=== PATIENT | male | born 1945 | race Caucasian/White ===

== ENCOUNTER 2024-03-12 07:26 | Day surgery (SDC) | payer MEDICARE, OTHER, SELFPAY ==
[2024-03-12] MEDS: LIDOCAINE 2% JELLY 10 ML UR (08:42)
--- NOTE | 2024-03-12 08:47 | PM.URSON ---
Urology Surgery Operative Note Operative Note Procedure Date: 03/12/24 Time Out Performed: yes Pre-op Diagnosis: BPH with LUTS refractory to medications Post-op Diagnosis: same as pre-op Procedures performed: 1. Cystoscopy. 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 He now presents for cystoscopy. He has signed an informed consent after risks were explained. Detailed description of Procedure: The patient was kept on the [facility] bed and brought to the endoscopy suite. He was in the supine position. Timeout was done by all parties in the room. We all agreed upon the patient's identification and the planned procedures for this patient. 2% lidocaine gel was passed per urethra. I then passed a flexible cystoscope per urethra and into the bladder. The anterior urethra was normal. Prostatic urethra revealed dramatic trilobar obstruction. The median lobe was very capacious and protruded anteriorly coapting with the anterior tissue. This lobe also protruded into the bladder mildly. The lateral lobes also were obstructing. Panendoscopy in the bladder revealed high-grade trabeculation with small mouth diverticuli formation. No bladder tumors were noted. On retroflex of the scope no new findings were noted. The scope was then removed. He was then discharged to home.
[2024-03-12 08:59] VITALS: BP 138/62; BP 148/69; PULSE 52; PULSE 53; O2SAT 94
== END 2024-03-12 09:10 | disposition home or self-care (01) ==
PROVIDERS: PCP Internal Medicine; Visit Provider Urology
PROC: (CPT 52000; principal; 2024-03-12 08:15)
DX: N40.1 Benign prostatic hyperplasia with lower urinary tract symptoms (principal); N32.89 Other specified disorders of bladder; E11.9 Type 2 diabetes mellitus without complications; I10 Essential (primary) hypertension; E78.5 Hyperlipidemia, unspecified; E03.9 Hypothyroidism, unspecified; Z79.4 Long term (current) use of insulin
CPT/HCPCS: 52000

== ENCOUNTER 2024-05-31 11:07 | Outpatient (OUT) | payer MEDICARE, OTHER, SELFPAY ==
--- NOTE | 2024-05-31 11:11 | ECG_ITS ---
The [facility] Test Date: 2024-05-31 Pat Name: RUBEN LAI Department: Room: - Gender: Male [employer]: : 1945 Requested By: GUDELIA HARKINS Order Number: [id number] Reading MD: SHANA PAN Measurements Intervals [place] Rate: 51 P: 43 FL: 161 QRS: 13 QRSD: 96 T: 45 QT: 438 QTc: 407 Interpretive Statements SINUS BRADYCARDIA Electronically Signed On 05-31-2024 22:45:50 EDT by SHANA PAN
[2024-05-31 12:07] LABS: Basophils Percent Auto 0.2 % (0.2-2.0); Eosinophils Absolute Auto 0.3 10^3/uL (0.0-0.7); Eosinophils Percent Auto 4.1 % (0.9-7.0); Hematocrit 41.7 % (42.0-54.0); Hemoglobin 13.3 g/dL (14.0-18.0); Immature Granulocytes Abs Auto 0.03 10^3/uL (0.00-0.03); Immature Granulocytes Pct Auto 0.4 % (0.0-0.5); Lymphocytes Percent Auto 11.4 % (20.5-60.0); Mean Corpuscular HGB Conc 31.9 g/dL (29.9-35.2); Mean Corpuscular Volume 87.8 fL (80.0-94.0); Monocytes Absolute Auto 0.6 10^3/uL (0.3-0.8); Monocytes Percent Auto 7.7 % (1.7-12.0); Neutrophils Absolute Auto 6.4 10^3/uL (1.4-6.5); Neutrophils Percent Auto 76.2 % (43.0-75.0); Platelet Count 205 10^3/uL (150-450); Red Blood Count 4.75 10^6/uL (4.70-6.10); Red Cell Distribution Width 14.9 % (11.0-15.0); White Blood Count 8.4 10^3/uL (4.0-11.0)
[2024-05-31 12:23] LABS: Anion Gap 13.5; BUN Creatinine Ratio 18.1; Calcium 8.9 mg/dL (8.5-10.1); Carbon Dioxide 27.7 mmol/L (21.0-32.0); Chloride 102 mmol/L (98-107); Estimated GFR (African America 51 (>=60 mL/min/1.73m^2); Estimated GFR (Non-African Ame 42 (>=60 mL/min/1.73m^2); Glucose 226 mg/dL (74-106); Potassium 4.2 mmol/L (3.5-5.1); Sodium 139 mmol/L (136-145)
[2024-05-31 12:57] LABS: INR 0.96; Partial Thromboplastin Time 29.6 sec (22.3-36.2); Prothrombin Time 10.2 sec (9.0-11.6)
== END 2024-05-31 11:08 | disposition home or self-care (01) ==
LOC: PST 11:07
PROVIDERS: PCP Internal Medicine; Visit Provider Urology
DX: Z01.810 Encounter for preprocedural cardiovascular examination (principal); Z01.812 Encounter for preprocedural laboratory examination; N40.1 Benign prostatic hyperplasia with lower urinary tract symptoms; E03.9 Hypothyroidism, unspecified; I10 Essential (primary) hypertension; E11.9 Type 2 diabetes mellitus without complications
CPT/HCPCS: 36415; 80048; 85025; 85610; 85730; 93005

== ENCOUNTER 2024-06-06 11:14 | Outpatient (OUT) | payer MEDICARE, OTHER, SELFPAY ==
--- NOTE | 2024-06-06 10:45 | NM_ITS ---
Patient Name: RUBEN LAI MR#: [id number] : 1945 Exam Date: 06/06/2024 Ordering Doctor: DR GURWINDER ARTEAGA M.D. RADIOLOGY REPORT PROCEDURE: NM [place] PERF SPECT REST STR COMPARISON: None. INDICATIONS: PRE PROCEDURE CARDIOVASCULAR EXAM, SHORTNESS OF BREATH TECHNIQUE: Exam Description: Stress/Rest one day protocol gated SPECT Rest Imagin.9 mCi Tc-99m Cardiolite IV on 06/06/2024 Stress Imaging 30.5 mCi Tc-99m Cardiolite IV on 06/06/2024 Exercise Protocol: 0.4 mg Lexiscan given IV Heart Rate (bpm): Rest: 54 Max: 73 PMHR: 50 Blood Pressure: Rest: 134/68 Max: 152/82 Symptoms: Rest and peak stress ECG findings were normal and the exercise portion of the study was normal per attending physician Dr. Lanza . For more details please see separate cardiac stress test report. FINDINGS: QUALITY OF STUDY: Excellent. PERFUSION DEFECT: None. LOCATION: N/A SIZE: N/A. SEVERITY: N/A. TYPE: N/A. WALL MOTION: Normal. LV SIZE: Normal. 84 mL. TID / TCD: None; 0.8 LVEF: Normal. Calculated EF 60%. SUMMARY: Myocardial perfusion imaging study is NORMAL. CONCLUSION: 1. Normal nuclear medicine myocardial perfusion scan. Dictated by: Kirill Hurley M.D. on 06/07/2024 at 11:10 Approved by: Kirill Hurley M.D. on 06/07/2024 at 11:19
--- OUTSIDE RECORDS SUMMARY | 2024-06-06 11:31 | XMS_ITS | CCD ---
Author Organization [facility] Care Team Providers Care Environmental Services Worker Name Role Phone DR HUGO RAMOS Attending Unavailable RICHARD, DR PURDY Primary Care Unavailable RICHARD, DR PURDY Admitting Unavailable HUGO RAMOS Primary Care Physician [phone] CHERELLE Ramos Primary Care Provider MD Manjeet Ng Emergency Provider [phone] Hugo Ramos MD Unavailable Hugo Ramos MD Primary Care Provider Salome Ramirez Admitting Unavailable Salome Ramirez Attending Unavailable Robert CONTRERAS Attending Unavailable CONTRERAS, Robert King Attending Unavailable CONTRERAS, Robert King Attending Unavailable CONTRERAS, Robert King Attending Unavailable SHAHANA, Robert King Attending Unavailable GalSalome dickens Attending Unavailable SHAHANA, Robert King Attending Unavailable SHAHANA, Robert King Referring Unavailable Robert CONTRERAS Admitting Unavailable Manjeet Ng Attending Unavailable Manjeet Ng Admitting Unavailable Hugo Ramos Primary Care Unavailable HUGO RAMOS Attending Unavailable HUGO RAMOS Attending Unavailable PROSPER GRANT Attending Unavailable HUGO RAMOS Attending Unavailable JUSTINA RODRIGUES Attending Unavailable PROSPER GRANT Attending Unavailable PROSPER GRANT Attending Unavailable JUSTINA RODRIGUES Attending Unavailable HUGO RAMOS Attending Unavailable JUSTINA RODRIGUES Attending Unavailable HEMCHIARA SINGH Attending Unavailable HEMCHIARA SINGH Referring Unavailable CHIARA ISLAS Referring Unavailable JUSTINA RODRIGUES Attending Unavailable JUSTINA RODRIGUES Attending Unavailable HUGO RAMOS Attending Unavailable MICHELLE SUMMERS Attending Unavailable PROSPER GRANT Attending Unavailable HUGO RAMOS Attending Unavailable PROSPER GRANT A Attending Unavailable PROSPER GRANT A Attending Unavailable ZOILA GRANTS A Attending Unavailable BROWN, PROSPER A Attending Unavailable HUGO RAMOS Attending Unavailable Allergies Allergy Classification Reported Allergen(s) Allergy Type Date of Onset Reaction(s) Facility (1 source) No Known Medication Allergies; Translations: [No Known Medication Allergies] Propensity to adverse reactions (disorder) [facility] Repository Medications Current Medications Medication Drug Class(es) Dates Sig (Normalized) Sig (Original) acetaminophen 325 mg oral tablet (1 source) Start: 06-07-2019 take 2 tablets by mouth every six hours as needed for pain acetaminophen 325 mg Tab 650 mg = 2 tab(s), Oral, q6hr, PRN as needed for fever or pain, Refills(s) 0 Start Date: 06/07/19 Status: Ordered albuterol 0.83 mg/ml inhalation solution (1 source) beta2-Adrenergic Agonist Start: 06-07-2019 take 2.5 mg by inhalation every six hours albuterol 0.083% Inh Soniya 3 mL 2.5 mg, 3 mL, NEB, q6hr Shortness of breath or wheezing, Refill(s) 0 Start Date: 06/07/19 Status: Ordered 24 hr alfuzosin hydrochloride 10 mg extended release oral tablet (9 sources) alpha-Adrenergic Abram Start: 07-19-2023 End: 08-22-2024 take 1 tablet by mouth every twenty-four hours in the morning alfuzosin ER (Uroxatral) 10 MG 24 hr tablet Indications: Benign prostatic hyperplasia with urinary obstruction Take 1 tablet (10 mg) by mouth in the morning. 100 tablet 3 07/19/2023 08/22/2024 Active Start: 08-14-2022 take 10 mg by mouth once daily Alfuzosin Active 10 MG PO Daily August 14, 2022 12:00am amLODIPine 5 mg oral tablet (10 sources) Dihydropyridine Calcium Channel Abram Start: 10-17-2023 End: 11-20-2024 take 1 tablet by mouth once daily amLODIPine (Norvasc) 5 MG tablet Indications: Benign essential hypertension (CMS/HCC) Take 1 tablet (5 mg) by mouth Daily 100 tablet 3 10/17/2023 11/20/2024 Active Start: 06-07-2019 take 1 tablet by jennifer th once daily amLODIPine 10 mg Tab 10 mg = 1 tab(s), Oral, Daily, Refills(s) 0 Start Date: 06/07/19 Status: Ordered Start: 06-04-2019 take 5 mg by mouth once daily Amlodipine Active 5 MG PO Daily June 04, 2019 12:00am atorvastatin 80 mg oral tablet (10 sources) HMG-CoA Reductase Inhibitor Start: 06-07-2019 End: 01-08-2025 take 1 tablet by mouth once daily atorvastatin (Lipitor) 80 MG tablet Indications: Mixed hyperlipidemia (CMS/HCC) Take 1 tablet (80 mg) by mouth Daily 90 tablet 3 01/09/2024 01/08/2025 Active Start: 06-04-2019 take 80 mg by mouth once daily Atorvastatin Active 80 MG PO Daily June 04, 2019 12:00am Basaglar KwikPen (1 source) Start: 06-07-2019 inject 60 [IU] by subcutaneous injection once daily at bedtime Basaglar KwikPen 60 unit(s), SubCutaneous, Once a day (at bedtime), Refills(s) 0 Start Date: 06/07/19 Status: Ordered buPROPion hydrochloride 75 mg oral tablet (9 sources) Aminoketone Start: 10-10-2023 End: 10-09-2024 take 2 tablets by mouth in the morning buPROPion (Wellbutrin) 75 MG tablet Indications: 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 360 tablet 3 10/10/2023 10/09/2024 Active Start: 07-22-2021 take 150 mg by mouth twice magdy ly Bupropion Hcl Active 150 MG PO Twice daily July 22, 2021 12:00am docusate sodium 100 mg oral capsule (2 sources) Start: 06-04-2019 End: 08-14-2022 take 1 capsule by mouth twice daily as needed for constipation Colace 100 mg Cap 100 mg = 1 cap(s), Oral, BID, PRN for constipation, # 20 cap(s), Refills(s) 0 Start Date: 06/07/19 Status: Ordered doxazosin 4 mg oral tablet (2 sources) alpha-Adrenergic Abram Start: 06-04-2019 End: 08-14-2022 take 1 tablet by mouth once daily doxazosin 4 mg oral tablet 4 mg = 1 tab(s), Oral, Daily, Refills(s) 0 Start Date: 06/07/19 Status: Ordered DULoxetine 60 mg delayed release oral capsule (9 sources) Serotonin and Norepinephrine Reuptake Inhibitor Start: 01-30-2024 take 1 capsule by mouth once daily DULoxetine (Cymbalta) [address] capsule Indications: Anxiety about health Take 1 capsule (60 mg) by mouth Daily 100 capsule 3 01/30/2024 Active Start: 08-14-2022 take 60 mg by mouth once daily Duloxetine Active 60 MG PO Daily August 14, 2022 12:00am empagliflozin 25 mg oral tablet (4 sources) Sodium-Glucose Cotransporter 2 Inhibitor Start: 08-31-2023 End: 08-30-2024 take 1 tablet by mouth in the morning empagliflozin (Jardiance) 25 MG Indications: Type 2 diabetes mellitus with diabetic neuropathy, with long-term current use of insulin ([facility]) Take 1 tablet (25 mg) by mouth in the morning. 30 tablet 11 08/31/2023 08/30/2024 Active famotidine 20 mg oral tablet (2 sources) Histamine-2 Receptor Antagonist Start: 06-04-2019 End: 08-14-2022 take 1 tablet by mouth once daily famotidine 20 mg Tab 20 mg = 1 tab(s), Oral, Daily, Refills(s) 0 Start Date: 06/07/19 Status: Ordered furosemide 20 mg oral tablet (2 sources) Loop Diuretic Start: 06-04-2019 End: 08-14-2022 take 1 tablet by mouth once daily Lasix 20 mg Tab 20 mg = 1 tab(s), Oral, Daily, Refills(s) 0 Start Date: 06/07/19 Status: Ordered gabapentin 100 mg oral capsule (2 sources) Anti-epileptic Agent Start: 06-04-2019 End: 08-14-2022 take 1 capsule by mouth three times daily gabapentin 100 mg Cap 100 mg = 1 cap(s), Oral, TID, Refills(s) 0 Start Date: 06/07/19 Status: Ordered guaiFENesin 600 mg oral tablet (2 sources) Start: 06-07-2019 take 600 mg by mouth every twelve hours Mucinex 600 mg, Oral, q12hr, Refills(s) 0 Start Date: 06/07/19 Status: Ordered Start: 06-06-2019 End: 08-14-2022 take 1 tablet by mouth twice daily, then take 1 tablet by mouth every twelve hours Guaifenesin (Mucinex) 600 mg Tablet Extended Release 12hr Discontinued 600 MG PO Twice daily 14 7 June 06, 2019 12:00am August 14, 2022 10:45am hydrALAZINE hydrochloride 50 mg oral tablet (10 sources) Arteriolar Vasodilator Start: 06-04-2019 End: 01-08-2025 take 1 tablet by mouth in the morning, then take 1 tablet by mouth in the evening, then take 1 tablet by mouth at bedtime hydrALAZINE (Apresoline) 50 MG tablet Indications: Benign essential hypertension (CMS/HCC) Take 1 tablet (50 mg) by mouth in the morning and 1 tablet (50 mg) in the evening and 1 tablet (50 mg) before bedtime. 270 tablet 3 01/09/2024 01/08/2025 Active hydrocortisone valerate 2 mg/ml topical cream (4 sources) Corticosteroid Start: 09-28-2021 hydrocortisone ([place]) 0.2 % cream 1 application 1 (one) time each day at the same time. 09/28/2021 Active ibuprofen 800 mg oral tablet (4 sources) Nonsteroidal Anti-inflammatory Drug Start: 01-04-2024 take 1 tablet by mouth every eight hours as needed ibuprofen 800 MG tablet Take 800 mg by mouth every 8 (eight) hours if needed 01/04/2024 Active insulin isophane / insulin, regular, human (10 sources) Insulin Start: 02-23-2024 Novolin 70/30 SubCutaneous, Refill(s) 0 Start Date: 02/23/24 Status: Ordered Start: 07-22-2021 inject 40 [IU] by hare bcutaneous injection once daily in the morning, then inject 50 [IU] by subcutaneous injection in the evening Insulin Nph And Regular Human (Novolin 70/30 U-100 Insulin) 100 unit/mL (70-30) suspension Active 40 UNIT SUBCUT Every morning July 22, 2021 12:00am 40 UNITS AM 50 UNITS PM Start: 07-22-2021 inject 50 [IU] by hare bcutaneous injection once daily at bedtime Insulin Nph And Regular Human Active 50 UNIT SUBCUT Daily at bedtime July 22, 2021 12:00am inject 50 [IU] by hare bcutaneous injection every twelve hours insulin NPH-insulin regular (NovoLIN 70/30) (70-30) 100 UNIT/ML injection Inject 50 Units under the skin every 12 (twelve) hours. 40 units am and 50 units pm Active Insulin Lispro (2 sources) Insulin Analog Start: 06-07-2019 insulin lispro 10 unit(s), SubCutaneous, TIDAC, Refills(s) 0 Start Date: 06/07/19 Status: Ordered Start: 06-04-2019 End: 08-14-2022 inject 10 [IU] by subcutaneous injection three times daily Insulin Lispro Discontinued 10 UNITS SUBCUT Three times daily June 04, 2019 12:00am August 14, 2022 10:45am Hold for BS less than 110 levoFLOXacin 750 mg oral tablet (2 sources) Quinolone Antimicrobial Start: 06-06-2019 End: 08-14-2022 take 1 tablet by mouth every twenty-four hours Levaquin 750 mg Tab 750 mg = 1 tab(s), Oral, q24hr, Refills(s) 0 Start Date: 06/07/19 Status: Ordered levothyroxine sodium 0.175 mg oral tablet (12 sources) l-Thyroxine Start: 08-08-2023 End: 09-11-2024 take 1 tablet by mouth before mealtime levothyroxine (Synthroid, Levoxyl) 175 MCG tablet Indications: Acquired hypothyroidism (CMS/HCC) Take 1 tablet (175 mcg) by mouth in the morning. Take before meals. 100 tablet 3 08/08/2023 09/11/2024 Active Start: 07-22-2021 Levothyroxine Active 87.5 MCG PO Q48H July 22, 2021 12:00am Start: 07-22-2021 Levothyroxine Active 175 MCG PO Q48H July 22, 2021 12:00am Start: 06-07-2019 take 1 tablet by jennifer th once daily levothyroxine 150 mcg (0.15 mg) Tab 150 microgram = 1 tab(s), Oral, Daily, Refills(s) 0 Start Date: 06/07/19 Status: Ordered Start: 06-04-2019 End: 07-22-2021 take 175 ug by mouth once daily Levothyroxine Discontinued 175 MCG PO Daily June 04, 2019 12:00am July 22, 2021 7:23am loratadine 10 mg oral tablet (4 sources) Start: 01-30-2024 take 1 tablet by mouth once daily loratadine (Claritin) 10 MG tablet Indications: Persistent cough Take 1 tablet (10 mg) by mouth Daily for 14 days 14 tablet 01/30/2024 Active metoprolol tartrate 50 mg oral tablet (10 sources) beta-Adrenergi c Abram Start: 06-04-2019 End: 12-28-2024 take 1 tablet by mouth in the morning metoprolol tartrate (Lopressor) 50 MG tablet Indications: Atrial Fibrillation Take 1 tablet (50 mg) by mouth in the morning and 1 tablet (50 mg) before bedtime. 180 tablet 3 12/29/2023 12/28/2024 Active oxyCODONE hydrochloride 5 mg oral capsule (3 sources) Opioid Agonist Start: 06-07-2019 take 1 capsule by mouth four times daily as needed for pain oxyCODONE 5 mg Cap 5 mg = 1 cap(s), Oral, QID, PRN as needed for pain, Refills(s) 0 Start Date: 06/07/19 Status: Ordered Start: 06-04-2019 End: 08-14-2022 take 1 tablet by mouth four times daily Oxycodone (Roxicodone) 5 mg Tablet Discontinued 5 MG PO Four times daily 10 June 06, 2019 August 14, 2022 10:45am microencapsulated potassium chloride 20 meq extended release oral tablet (1 source) Start: 07-22-2021 take 20 mEq by mouth twice daily Potassium Chloride Active 20 MEQ PO Twice daily July 22, 2021 12:00am QUEtiapine 25 mg oral tablet (2 sources) Atypical Antipsychotic Start: 06-04-2019 End: 08-14-2022 take 1 tablet by mouth at bedtime SEROquel 25 mg Tab 25 mg = 1 tab(s), Oral, Bedtime, Refills(s) 0 Start Date: 06/07/19 Status: Ordered tamsulosin hydrochloride 0.4 mg oral capsule (2 sources) alpha-Adrenergic Abram Start: 06-04-2019 End: 08-14-2022 take 1 capsule by mouth once daily tamsulosin 0.4 mg Cap 0.4 mg = 1 cap(s), Oral, Daily, Refills(s) 0 Start Date: 06/07/19 Status: Ordered Completed/Discontinued Medications Medication Drug Class(es) Dates Sig (Normalized) Sig (Original) Budesonide (1 source) Corticosteroid Start: 07-22-2021 End: 08-14-2022 Budesonide Discontinued 1 INH INHALATION Twice daily 1 July 22, 2021 8:07am August 14, 2022 10:44am cholecalciferol 0.125 mg oral capsule (2 sources) Vitamin D Start: 06-04-2019 End: 08-14-2022 take 1 capsule by mouth once daily cholecalciferol 5000 intl units oral capsule 5,000 International_Unit = 1 cap(s), Oral, Daily, Refills(s) 0 Start Date: 06/07/19 Status: Ordered ciprofloxacin 500 mg oral tablet (3 sources) Quinolone Antimicrobial Start: 03-05-2024 take 1 tablet by mouth once daily Cipro 500 mg Tab 500 mg = 1 tab(s), Oral, Daily, Take 1 tablet the day before the procedure and 1 tablet after the procedure, # 2 tab(s), Refills(s) 0, Pharmacy: [id number], 176, cm, 02/23/24 13:47:00 EDT, Height/Length Dosing, 111, kg, 02/23/24 13:47:00 EDT, Weight Dosing Start Date: 03/05/24 Status: Ordered digoxin 0.25 mg oral tablet (2 sources) Cardiac Glycoside Start: 06-07-2019 take 1 tablet by mouth once daily digoxin 250 mcg (0.25 mg) Tab 250 microgram = 1 tab(s), Oral, Daily, Refills(s) 0 Start Date: 06/07/19 Status: Ordered Start: 06-04-2019 End: 08-14-2022 take 250 ug by mouth once daily Digoxin Discontinued 250 MCG PO Daily June 04, 2019 12:00am August 14, 2022 10:44am 3 ml insulin glargine 100 unt/ml pen injector (1 source) Insulin Analog Start: 06-04-2019 End: 08-14-2022 Insulin Glargine (Basaglar Kwikpen U-100 Insulin) 100 unit/mL (3 mL) Insulin Pen Discontinued 60 UNITS SUBCUT Bedtime June 04, 2019 12:00am August 14, 2022 10:44am Problems Active Problems Problem Classification Problem Date Documented Da te Episodic/Chronic Acute myocardial infarction (9 sources) Myocardial infarction; Translations: [Myocardial infarction type 2] Onset: 01-30-2024 06-07-2019 Chronic Administrative/social admission (1 source) Counseling procedure with explicit context; Translations: [Dietary counseling and surveillance] Episodic Cardiac dysrhythmias (5 sources) Paroxysmal atrial fibrillation; Translations: [Paroxysmal atrial fibrillation] Onset: 07-20-2019 06-07-2019 Chronic Cataract (12 sources) Age-related nuclear cataract of right eye; Translations: [Age-related nuclear cataract, right eye] Onset: 10-14-2017 02-21-2023 Chronic Congestive heart failure; nonhypertensive (12 sources) Chronic diastolic heart failure; Translations: [Chronic diastolic (congestive) heart failure] Onset: 12-22-2022 12-22-2022 Chronic Delirium, dementia, and amnestic and other cognitive disorders (4 sources) Dementia; Translations: [Unspecified dementia without behavioral disturbance] Onset: 12-22-2022 12-22-2022 Chronic Diabetes mellitus with complications (20 sources) Hyperglycemia due to type 2 diabetes mellitus; Translations: [Type 2 diabetes mellitus with hyperglycemia] Onset: 03-16-2017 Chronic Diabetes mellitus without complication (10 sources) Diabetes mellitus; Translations: [Type 2 diabetes mellitus without complications] Onset: 12-22-2022 06-05-2019 Chronic Disorders of lipid metabolism (8 sources) Hyperlipidemia; Translations: [Mixed hyperlipidemia] Onset: 07-16-2015 02-23-2024 Chronic Diverticulosis and diverticulitis (4 sources) Diverticulosis of colon; Translations: [Diverticulosis of large intestine without perforation or abscess without bleeding] Onset: 01-26-2021 02-21-2023 Chronic Essential hypertension (15 sources) Benign hypertension; Translations: [Essential (primary) hypertension] Onset: 12-22-2022 Resolved: 06-04-2024 06-05-2019 Chronic Genitourinary symptoms and ill-defined conditions (1 source) Unspecified urinary incontinence; Translations: [Unspecified urinary incontinence] Onset: 05-24-2024 Chronic Hyperplasia of prostate (13 sources) Benign prostatic hypertrophy with outflow obstruction; Translations: [Benign prostatic hyperplasia with lower urinary tract symptoms] Onset: 06-22-2021 Chronic Mood disorders (4 sources) Severe major depression without psychotic features ; Translations: [Major depressive disorder, single episode, severe without psychotic features] Onset: 12-26-2019 02-21-2023 Chronic Osteoarthritis (8 sources) Localized, secondary osteoarthritis of the shoulder region; Translations: [Secondary osteoarthritis, unspecified shoulder] Onset: 08-13-2020 02-21-2023 Chronic Other aftercare (1 source) Long-term current use of insulin; Translations: [terminal gauger (current) use of insulin] Episodic Other connective tissue disease (1 source) Abnormal posture; Translations: [ABNORMAL POSTURE] Onset: 03-02-2022 Episodic Other diseases of veins and lymphatics (4 sources) Stasis dermatitis; Translations: [Chronic venous hypertension (idiopathic) with inflammation of unspecified lower extremity] Onset: 02-21-2023 02-21-2023 Chronic Other hereditary and degenerative nervous system conditions (4 sources) Impaired cognition; Translations: [Mild cognitive impairment, so stated] Onset: 12-22-2022 12-22-2022 Chronic Other hereditary and degenerative nervous system conditions (4 sources) Cerebellar ataxia; 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, unspecified] Onset: 12-22-2022 12-22-2022 Chronic Other male genital disorders (4 sources) Secondary erectile dysfunction; Translations: [Male erectile dysfunction, unspecified] Onset: 07-16-2015 02-21-2023 Chronic Other nervous system disorders (4 sources) Chronic pain; Translations: [Other chronic pain] Onset: 12-22-2022 12-22-2022 Chronic Other nervous system disorders (4 sources) Unspecified abnormalities of gait and mobility; Translations: [UNS ABNORMALITIES GAIT AND MOBILITY] Onset: 02-19-2022 Episodic Other nervous system disorders (1 source) Other abnormalities of gait and mobility; Translations: [OTHER ABNORMALITIES GAIT AND MOBILITY] Onset: 03-02-2022 Episodic Other screening for suspected conditions (not mental disorders or infectious disease) (8 sources) Abnormal radiologic density; Translations: [Abnormal findings on diagnostic imaging of other specified body structures] Onset: 01-19-2021 12-22-2022 Chronic Other screening for suspected conditions (not mental disorders or infectious disease) (1 source) Encounter for screening for malignant neoplasm of prostate; Translations: [Screening for malignant neoplasm done] Onset: 02-23-2024 Episodic Other upper respiratory infections (8 sources) Chronic sinusitis; Translations: [Chronic sinusitis, unspecified] Onset: 03-05-2019 12-22-2022 Chronic Residual codes; unclassified (4 sources) Sleep apnea; Translations: [Sleep apnea, unspecified] Onset: 02-21-2023 02-21-2023 Chronic Retinal detachments; defects; vascular occlusion; and retinopathy (4 sources) Microaneurysm of retinal artery; Translations: [Retinal micro-aneurysms, unspecified, unspecified eye] Onset: 10-14-2017 02-21-2023 Chronic Spondylosis; intervertebral disc disorders; other back problems (12 sources) Degeneration of lumbar intervertebral disc; Translations: [Degenerative disc disease, lumbar] Onset: 07-16-2015 12-22-2022 Chronic Thyroid disorders (9 sources) Hypothyroidism; Translations: [Hypothyroidism, unspecified] Onset: 12-22-2022 06-07-2019 Chronic Unclassified (1 source) Cough, unspecified; Translations: [Cough, unspecified] Onset: 08-14-2022 Past or Other Problems Problem Classification Problem Date Documented Date Episodic/Chronic Deficiency and other anemia (5 sources) Anemia; Translations: [Anemia, unspecified] Onset: 01-30-2024 06-07-2019 Episodic E Codes: Machinery (5 sources) Contact with unspecified agricultural machinery, initial encounter; Translations: [Accident caused by farm tractor] Onset: 01-30-2024 03-30-2019 Episodic Genitourinary symptoms and ill-defined conditions (5 sources) Retention of urine; Translations: [Retention of urine, unspecified] Onset: 02-06-2024 Episodic Inflammation; infection of eye (except that caused by tuberculosis or sexually transmitteddisease) (4 sources) Blepharitis of upper and lower eyelids of bilateral eyes; Translations: [Unspecified blepharitis right eye, upper and lower eyelids] Onset: 03-14-2023 03-14-2023 Episodic Intracranial injury (4 sources) Traumatic brain injury; Translations: [Traumatic brain injury] Onset: 02-21-2023 02-21-2023 Episodic Malaise and fatigue (6 sources) Weakness; Translations: [Asthenia] Onset: 03-02-2022 07-22-2021 Episodic Miscellaneous mental health disorders (4 sources) Anxiety about body function or health; Translations: [Other symptoms and signs involving emotional state] Onset: 12-22-2022 12-22-2022 Episodic Other connective tissue disease (4 sources) Pain in left lower limb; Translations: [Pain in left leg] Onset: 02-21-2023 02-21-2023 Episodic Other diseases of veins and lymphatics (4 sources) Peripheral venous insufficiency; Translations: [Venous insufficiency (chronic) (peripheral)] Onset: 12-22-2022 12-22-2022 Episodic Other diseases of veins and lymphatics (4 sources) Disorder of vein of lower extremity; Translations: [Venous insufficiency (chronic) (peripheral)] Onset: 02-21-2023 02-21-2023 Episodic Other eye disorders (4 sources) Floppy lid syndrome; Translations: [Other disorders affecting eyelid function] Onset: 03-14-2023 03-14-2023 Episodic Other eye disorders (4 sources) Dry eyes; Translations: [Dry eye syndrome of bilateral lacrimal glands] Onset: 03-14-2023 03-14-2023 Episodic Other fractures (5 sources) Fracture of thoracic spine; Translations: [Unspecified fracture of unspecified thoracic vertebra, initial encounter for closed fracture] Onset: 01-30-2024 03-30-2019 Episodic Other fractures (5 sources) Fracture of multiple ribs ; Translations: [Multiple fractures of ribs, bilateral, initial encounter for closed fracture] Onset: 01-30-2024 03-30-2019 Episodic Other fractures (4 sources) Closed fracture of sternum; Translations: [Unspecified fracture of sternum, initial encounter for closed fracture] Onset: 03-30-2019 02-21-2023 Episodic Other fractures (4 sources) Closed fracture of multiple left and right ribs; Translations: [Multiple fractures of ribs, bilateral, initial encounter for closed fracture] Onset: 03-30-2019 02-21-2023 Episodic Other injuries and conditions due to external causes (4 sources) Injury of chest wall; Translations: [Unspecified injury of thorax, initial encounter] Onset: 08-03-2019 02-21-2023 Episodic Other lower respiratory disease (5 sources) Dyspnea; Translations: [Shortness of breath] Onset: 01-30-2024 07-22-2021 Episodic Other nervous system disorders (5 sources) Abnormal gait; Translations: [Other abnormalities of gait and mobility] Onset: 12-22-2022 Episodic Pleurisy; pneumothorax; pulmonary collapse (9 sources) Pneumothorax; Translations: [Pneumothorax, unspecified] Onset: 01-30-2024 03-30-2019 Episodic Pneumonia (except that caused by tuberculosis or sexually transmitted disease) (5 sources) Infective pneumonia; Translations: [Pneumonia, unspecified organism] Onset: 01-30-2024 06-05-2019 Episodic Skull and face fractures (5 sources) Closed fracture of nasal bones; Translations: [Fracture of nasal bones, initial encounter for closed fracture] Onset: 01-30-2024 03-30-2019 Episodic Viral infection (6 sources) Disease caused by 2019-nCoV; Translations: [COVID-19] Onset: 01-30-2024 07-22-2021 Episodic Results Test Name Value Interpretation Reference Range Facility ALL CBC WITH AUTO DIFFon BASOPHILS ABSOLUTE AUTO 0 [facility] Basophils/100 WBC (Bld) 0.2 % 0.2 - 2.0 % [facility] Eosinophils/100 WBC (Bld) 4.1 % 0.9 - 7.0 % [facility] Erythrocyte distribution width (RBC) [Ratio] 14.9 % 11.0 - 15.0 % [facility] Hematocrit (Bld) [Volume fraction] 41.7 % Low 42.0 - 54.0 % [facility] Hemoglobin (Bld) [Mass/Vol] 13.3 g/dL Low 14.0 - 18.0 g/dL [facility] IMMATURE GRANULOCYTES ABS AUTO 0.03 [facility] Immature granulocytes/100 WBC (Bld) 0.4 % 0.0 - 0.5 % [facility] Interpretation and review of laboratory results Abnormal [facility] LYMPHOCYTES ABSOLUTE AUTO 1 Low [facility] Lymphocytes/100 WBC (Bld) 11.4 % Low 20.5 - 60.0 % [facility] MCH (RBC) [Entitic mass] 28 pg 25.9 - 34.0 pg [facility] MCHC (RBC) [Mass/Vol] 31.9 g/dL 29.9 - 35.2 g/dL [facility] MCV (RBC) [Entitic vol] 87.8 fL 80.0 - 94.0 fL [facility] MONOCYTES ABSOLUTE AUTO 0.6 [facility] Monocytes/100 WBC (Bld) 7.7 % 1.7 - 12.0 % [facility] NEUTROPHILS ABSOLUTE AUTO 6.4 [facility] Neutrophils/100 WBC (Bld) 76.2 % High 43.0 - 75.0 % [facility] Platelet mean volume (Bld) [Entitic vol] 11 fL 9.5 - 13.5 fL [facility] TBH EO # 0.3 [facility] PLT 205 [facility] RBC 4.75 [facility] WBC 8.4 [facility] CLINISYNC [facility] C Urineon 05-26-2024 Bacteria identified Cx Nom (U) Microbiology PROCEDURE: Urine Culture [R1] SOURCE: U CleanCatch BODY SITE: COLLECTED DATE/TIME: 05/24/2024 13:55 EDT RECEIVED DATE/TIME: 05/24/2024 18:13 EDT START DATE/TIME: 05/24/2024 18:13 EDT FREE TEXT SOURCE: Ashley SINGLETON, Salome SINGLETON, Salome Hickey FINAL REPORTS Final Report [] Verified Date/Time: 05/26/2024 08:42 EDT >100,000 cfu/ml Streptococcus agalactiae (Group B) Presumptive isolated. Penicillin is the drug of choice for Beta Hemolytic Streptococci Isolates. Routine susceptibility testing on Beta Hemolytic Streptococcus isolates is no longer performed. Susceptibilities will continue to be performed on Isolates from sterile body fluids and serious wound infections. Performing Locations R1: This test was performed at: [facility], [address] [place] [address], [facility] , [place], [facility] Comment on above: Performed By: #### 2 [id number] #### [facility] [address] [place] [address] URINARY BLADDER LIMITEDon 02-03-2024 US URINARY BLADDER LIMITED US - US PELVIS LIMITED Reason for exam: Urinary incontinence Technique: Grayscale and color Doppler scanning was performed of the bladder. FINDINGS: The bladder margins are smooth with no obvious masses or wall thickening and no diverticula. Bilateral ureteral jets were noted with color Doppler. The prevoid volume is 324 cc and the post void volume is 155 cc. IMPRESSION: Elevated postvoid bladder volume. No focal findings on ultrasound. Dictated on: 02/03/2024 4:03 PM This report has been electronically signed and approved by the interpreting Radiologist. Electronically Signed Jose Alejandro Yeboah M.D. 2024-02-03 16:04:13 Normal Not Available XR CHEST 2 VIEWSon 4 XR CHEST 2 VIEWS Exam: XR - CHEST 2 V IEWS Reason for exam: Persistent cough Prior comparative studies: None Findings: Multiple fixation plates are seen in the sternum and right ribs. Multiple previous left rib fractures are also visible. Lungs are slightly hyperinflated. There is perhaps slight parabronchial cuffing. No consolidation or effusion is apparent. Heart is not enlarged. Mediastinum is unremarkable. IMPRESSION: 1. Mild parabronchial cuffing which may suggest airway disease, or bronchitis. 2. Obstructive pulmonary changes. 3. Extensive post traumatic and postoperative changes. Electronically Signed Bam Campos M.D. 2024-02-03 13:24:47 Normal Not Available Activated partial thrombopla stin time (aPTT) in platelet poor plasma by coagulation aOrdered By: Manjeet Ng on 08-14-2022 aPTT Coag (PPP) [Time] 28.5 s 25.1-36.5 [facility] Albumin [Mass/volume] in Ser um or PlasmaOrdered By: Manjeet Ng on 08-14-2022 Albumin [Mass/Vol] 3.6 g/dL 3.2-5.5 [facility] Automated erythrocytes count in urine sediment (number/area)Ordered By: Manjeet Ng on 08-14-2022 RBC Auto (Urine sed) [#/Area] None seen [HPF] 0-4 [facility] Automated leukocytes count i n urine sediment (number/area)Ordered By: Manjeet Ng on 08-14-2022 WBC Auto (Urine sed) [#/Area] None seen [HPF] 0-4 [facility] Basophils Auto (Bld) [#/Vol] Ordered By: Manjeet Ng on 08-14-2022 Basophils (Bld) [#/Vol] 0.0 10*3/uL 0.0-0.2 [facility] Basophils/100 WBC Auto (Bld) Ordered By: Manjeet Ng on 08-14-2022 Basophils/100 WBC (Bld) 0.2 % . [facility] Bilirubin Test strip Ql (U)O rdered By: Manjeet Ng on 08-14-2022 Bilirubin Ql (U) Negative Negative [facility] COVID CepheidOrdered By: Keshawn decker Hernandez on 08-14-2022 SARS-CoV-2 (COVID-19) Ab IA Ql Positive Negative [facility] Comment on above: This is a duplicate Cepheid Xpert Xpress CoV-2/Flu/RSV Plus RNA by RT-PCR result to be used for statistical tracking purpose only. SARS-CoV-2 (COVID-19) RNA MUKESH+probe Ql (Unsp spec) [facility] Color Auto (U)Ordered By: Yumiko Ng on 08-14-2022 Color (U) Yellow Yellow [facility] Creatinine and Glomerular fi ltration rate.predicted panel (S/P/Bld)Ordered By: Manjeet Ng on 08-14-2022 Creatinine [Mass/Vol] 1.41 mg/dL 0.64-1.27 [facility] Eosinophils Auto (Bld) [#/Vo l]Ordered By: Manjeet Ng on 08-14-2022 Eosinophils (Bld) [#/Vol] 0.1 10*3/uL 0.0-0.45 [facility] Eosinophils/100 WBC Auto (Bl d)Ordered By: Manjeet Ng on 08-14-2022 Eosinophils/100 WBC (Bld) 1.3 % . [facility] Erythrocyte distribution wid th Auto (RBC) [Ratio]Ordered By: Manjeet Ng on 08-14-2022 Erythrocyte distribution width (RBC) [Ratio] 14.6 % 12.0-14.8 [facility] Estimated glomerular filtrat ion rate (GFR) non- AmericanOrdered By: Manjeet Ng on 08-14-2022 GFR/1.73 sq M.predicted among non-blacks MDRD (S/P/Bld) [Vol rate/Area] 49 mL/Min [facility] Globulin Calc (S) [Mass/Vol] Ordered By: Manjeet Ng on 08-14-2022 Globulin (S) [Mass/Vol] 2.8 g/dL [facility] Glucose Glucometer (BldC) [M ass/Vol]Ordered By: Manjeet Ng on 08-14-2022 Glucose [Mass/Vol] 187 mg/dL [facility] Comment on above: Random Glucose Refer ence Range is dependent on time and content of last meal. Glucose of more than 200 mg/dL in a nonstressed, ambulatory subject supports the diagnosis of Diabetes Mellitus. Hematocrit Auto (Bld) [Volum e fraction]Ordered By: Manjeet Ng on 08-14-2022 Hematocrit (Bld) [Volume fraction] 37.8 % 38.8-50.0 [facility] Hemoglobin [Mass/volume] in BloodOrdered By: Manjeet Ng on 08-14-2022 Hemoglobin (Bld) [Mass/Vol] 12.2 g/dL 13.0-17.0 [facility] Ketones Auto test strip (U) [Mass/Vol]Ordered By: Manjeet Ng on 08-14-2022 Ketones (U) [Mass/Vol] Negative Negative [facility] and C hemistry - challengeOrdered By: Manjeet Ng on 08-14-2022 Magnesium [Mass/Vol] 1.8 mg/dL 1.6-2.6 [facility] Natriuretic peptide B (Bld) [Mass/Vol] 142.0 pg/mL 5-100 [facility] Laboratory - CoagulationOrde red By: Manjeet Ng on 08-14-2022 PT Coag (PPP) [Time] 11.6 s 9.0-12.9 [facility] Laboratory - UrinalysisOrder ed By: Manjeet Ng on 08-14-2022 Hyaline casts LM Ql (Urine sed) 0-8 [LPF] 0-8 [facility] Leukocytes [#/volume] correc nidhi for nucleated erythrocytes in Blood by Automated counOrdered By: Manjeet Ng on 08-14-2022 WBC corrected for nucl RBC Auto (Bld) [#/Vol] 8.0 10*3/uL 4.1-10.5 [facility] Lymphocytes Auto (Bld) [#/Vo l]Ordered By: Manjeet Ng on 08-14-2022 Lymphocytes (Bld) [#/Vol] 0.7 10*3/uL 1.00-4.8 [facility] Lymphocytes/100 WBC Auto (Bl d)Ordered By: Manjeet Ng on 08-14-2022 Lymphocytes/100 WBC (Bld) 9.1 % . [facility] MCH Auto (RBC) [Entitic mass ]Ordered By: Manjeet Ng on 08-14-2022 MCH (RBC) [Entitic mass] 28.6 pg 27.5-35.2 [facility] MCHC Auto (RBC) [Mass/Vol]Or dered By: Manjeet Ng on 08-14-2022 MCHC (RBC) [Mass/Vol] 32.2 g/dL 32.5-35.6 [facility] MCV Auto (RBC) [Entitic vol] Ordered By: Manjeet Ng on 08-14-2022 MCV (RBC) [Entitic vol] 88.9 fL 83.5-101 [facility] Monocyte distribution width [Entitic volume] in Blood by AutomatedOrdered By: Manjeet Ng on 08-14-2022 Monocyte distribution width Auto (Bld) [Entitic vol] 20.88 % 0.00-20.00 [facility] Comment on above: For adults in ED, MD W > 20.0 may be associated with a higher risk of sepsis during the first 12 hrs of hospital admission Monocytes Auto (Bld) [#/Vol] Ordered By: Manjeet Ng on 08-14-2022 Monocytes (Bld) [#/Vol] 1.0 10*3/uL 0.0-0.8 [facility] Monocytes/100 WBC Auto (Bld) Ordered By: Manjeet Ng on 08-14-2022 Monocytes/100 WBC (Bld) 12.5 % . [facility] Neutrophils Auto (Bld) [#/Vo l]Ordered By: Manjeet Ng on 08-14-2022 Neutrophils (Bld) [#/Vol] 6.1 10*3/uL 1.8-7.7 [facility] Neutrophils/100 WBC Auto (Bl d)Ordered By: Manjeet Ng on 08-14-2022 Neutrophils/100 WBC (Bld) 76.9 % . [facility] Nitrite Test strip Ql (U)Ord ered By: Manjeet Ng on 08-14-2022 Nitrite Ql (U) Negative Negative [facility] No Panel InformationOrdered By: Manjeet Ng on 08-14-2022 Estimated GFR () 59 mL/Min [facility] Comment on above: GFR estimated refere nce range: According to KDOQI guidelines, <60 ml/min/1.73m2 is sufficient to diagnose a patient with chronic kidney disease. Pharmacy Creatinine Clearance (Chem 55.99 [facility] Nucleated erythrocytes [Pres ence] in Blood by Automated countOrdered By: Manjeet Ng on 08-14-2022 Nucleated RBC Auto Ql (Bld) 0.1 /100{WBC} 0-0.5 [facility] Platelet mean volume Auto (B ld) [Entitic vol]Ordered By: Manjeet Ng on 08-14-2022 Platelet mean volume (Bld) [Entitic vol] 10.5 fL 6.6-10.1 [facility] Platelet poor plasma interna tional normalized ratio (INR) by coagulation assay (relatOrdered By: Manjeet Ng on 08-14-2022 INR Coag (PPP) [Relative time] 1.0 {INR} [facility] Comment on above: INR Therapeutic Rang e A) Pre- and Peroperative OAT started two weeks before surgery. NOT HIP SURGERY: 1.5 - 2.5 HIP SURGERY: 2 - 3B) Primary and secondary prevention of venous THROMBOSIS: 2 - 3C) Active venous thrombosis, pulmonary embolismand prevention of recurrent venous thrombosis: 2 - 3D) Prevention of arterial thromboembolismincluding patients with mechanical heart valves: 3 - 4.5 Platelets Auto (Bld) [#/Vol] Ordered By: Manjeet Ng on 08-14-2022 Platelets (Bld) [#/Vol] 134 10*3/uL 150-450 [facility] Protein Auto test strip (U) [Mass/Vol]Ordered By: Manjeet Ng on 08-14-2022 Protein (U) [Mass/Vol] 30 mg/dL Negative Fi [facility] Protein [Mass/volume] in Ser um or PlasmaOrdered By: Manjeet Ng on 08-14-2022 Protein [Mass/Vol] 6.4 g/dL 6.1-7.9 [facility] RBC Auto (Bld) [#/Vol]Ordere d By: Manjeet Ng on 08-14-2022 RBC (Bld) [#/Vol] 4.26 10*6/uL 3.90-5.60 [facility] Serum or plasma alanine harden otransferase measurement without P-5'-P (enzymatic activiOrdered By: Manjeet Ng on 08-14-2022 ALT No additional P-5'-P [Catalytic activity/Vol] 26 U/L 10-60 [facility] Serum or plasma albumin/glob ulin mass ratioOrdered By: Manjeet Ng on 08-14-2022 Albumin/Globulin [Mass ratio] 1.3 {ratio} [facility] Serum or plasma alkaline hussein sphatase measurement (enzymatic activity/volume)Ordered By: Manjeet Ng on 08-14-2022 ALP [Catalytic activity/Vol] 52 U/L 32-92 [facility] Serum or plasma anion gap de terminationOrdered By: Manjeet Ng on 08-14-2022 Anion gap [Moles/Vol] 13.3 mmol/L 6.0-15.0 [facility] Serum or plasma aspartate am inotransferase measurement (enzymatic activity/volume)Ordered By: Manjeet Ng on 08-14-2022 AST [Catalytic activity/Vol] 32 U/L 10-42 [facility] Serum or plasma calcium jessenia urement (mass/volume)Ordered By: Manjeet Ng on 08-14-2022 Calcium [Mass/Vol] 8.6 mg/dL 8.2-10.2 [facility] Serum or plasma chloride kvng surement (moles/volume)Ordered By: Manjeet Ng on 08-14-2022 Chloride [Moles/Vol] 101 mmol/L 95-114 [facility] Serum or plasma glucose jessenia urement (mass/volume)Ordered By: Manjeet Ng on 08-14-2022 Glucose [Mass/Vol] 183 mg/dL 70-100 [facility] Comment on above: ADA recommended refe rence rangeRandom Glucose Reference Range is dependent on time and content of last meal. Glucose of more than 200 mg/dL in a nonstressed, ambulatory subject supports the diagnosis of Diabetes Mellitus. Serum or plasma potassium me asurement (moles/volume)Ordered By: Manjeet Ng on 08-14-2022 Potassium [Moles/Vol] 4.5 mmol/L 3.5-5.1 [facility] Serum or plasma sodium measu rement (moles/volume)Ordered By: Manjeet Ng on 08-14-2022 Sodium [Moles/Vol] 134 mmol/L 136-146 [facility] Serum or plasma total biliru bin measurement (mass/volume)Ordered By: Manjeet Ng on 08-14-2022 Bilirubin [Mass/Vol] 0.6 mg/dL 0.3-1.2 [facility] Serum or plasma total carbon dioxide measurement (moles/volume)Ordered By: Manjeet Ng on 08-14-2022 CO2 [Moles/Vol] 24.2 mmol/L 22.0-30.0 [facility] Serum or plasma urea nitroge n measurement (mass/volume)Ordered By: Manjeet Ng on 08-14-2022 Urea nitrogen [Mass/Vol] 27 mg/dL 9- [facility] Specific gravity Auto test s trip (U) [Rel density]Ordered By: Manjeet Ng on 08-14-2022 Specific gravity (U) [Rel density] 1.014 1.001-1.030 [facility] Squamous epithelial cells de tection in urine sediment by light microscopyOrdered By: Manjeet Ng on 08-14-2022 Epithelial cells.squamous LM Ql (Urine sed) None seen [HPF] 0-2 [facility] Troponin I.cardiac [Mass/vol ume] in Serum or Plasma by High sensitivity methodOrdered By: Manjeet Ng on 08-14-2022 Troponin I.cardiac High sensitivity method [Mass/Vol] 25 pg/mL 0-20 [facility] Urine bacteria detection by automated methodOrdered By: Manjeet Ng on 08-14-2022 Bacteria Auto Ql (U) None seen None Seen [facility] Urine clarity by refractomet ry automatedOrdered By: Manjeet Ng on 08-14-2022 Clarity Refractometry automated (U) Clear Clear [facility] Urine glucose measurement by automated test strip (mass/volume)Ordered By: Manjeet Ng on 08-14-2022 Glucose Auto test strip (U) [Mass/Vol] Normal mg/dL Normal [facility] Urine hemoglobin detection b y automated test stripOrdered By: Manjeet Ng on 08-14-2022 Hemoglobin Auto test strip Ql (U) Negative Negative [facility] Urine leukocyte esterase det ection by automated test stripOrdered By: Manjeet Ng on 08-14-2022 Leukocyte esterase Auto test strip Ql (U) Negative Negative [facility] Urobilinogen Auto test strip (U) [Mass/Vol]Ordered By: Manjeet Ng on 08-14-2022 Urobilinogen (U) [Mass/Vol] Normal mg/dL Normal [facility] WBC Auto (Bld) [#/Vol]Ordere d By: Manjeet Ng on 08-14-2022 WBC (Bld) [#/Vol] 8.0 10*3/uL 4.1-10.5 [facility] pH Auto test strip (U)Ordere d By: Manjeet Ng on 08-14-2022 pH (U) 5.0 [pH] 5.0-9.0 [facility] Microalbumin (with Creat)on 10-21-2021 mALB 5.6 mg/dL Normal [facility] Comment on above: Result Comment: mALB reference range not established. Performed By: #### m ALBC #### [facility] [address] [place], [place] [id number] mALB/Creat Ratio 81.2 MCG/MG Normal [facility] Comment on above: Result Comment: The ADA (Diabetes Care 26:S94-S98, 2002) defines abnormalities in Albumin excretion as follows: Category Result (MCG/MG Creatinine) Normal <30 Microalbuminuria 30-299 Clinical Albuminuria > or = 300 Performed By: #### m ALBC #### [facility] [address] [place], [place] [id number] UCREA 69 mg/dL Normal 39-259 [facility] Comment on above: Performed By: #### m ALBC #### [facility] [address] [place], [place] [id number] PSA SCREEN (MEDICARE)on 09-30 TPSA 1.840 ng/mL Normal <4.000 [facility] Comment on above: Result Comment: PSA Test Method: ECLIA/Baljit e 601 Performed By: #### P SA MC #### [facility] [address] [place], [place] [id number] Q - HEPATITIS C ANTIBODY W/R EFLEX TO HCV RNA,QUANT,RT-PCRon 10-21-2021 HEPATITIS C ANTIBODY Non-Reactive Normal NON-HARISH CTIV E [facility] Comment on above: Order Comment: [facility] performed at: [facility], [employer] [facility], [address], [address] [facility], [place], [address], Materials Specialist: Vincenzo Wall MD [facility] Date/Time: [facility] Results Received Date/Time: [facility] Reported Date/Time: Performed By: #### 8 472 #### [facility] Default [address] [place] [address] SIGNAL TO CUT-OFF 0.07 Normal <1.00 [facility] Comment on above: Order Comment: [facility] performed at: [facility], [employer] [facility], [address] [place], [address], Materials Specialist: Vincenzo Wall MD [facility] Date/Time: [facility] Results Received Date/Time: [facility] Reported Date/Time: Result Comment: HCV antibody was non-reactive. There is no laboratory evidence of HCV infection. In most cases, no further action is required. However, if recent HCV exposure is suspected, a test for HCV RNA (test code 99901) is suggested. For additional information please refer to http://education.groSolar/faq/NYU25m4 (This link is being provided for informational/ educational purposes only.) Performed By: #### 8 472 #### [facility] Default [address] [place] [address] BASIC METABOLIC PANELon 10-2 Anion gap [Moles/Vol] 14 mmol/L Normal 10 - 20 [facility] Comment on above: Performed By: #### H BA1E #### [facility] [address] [place] [address] Calcium [Mass/Vol] 9.2 mg/dL Normal 8.6 - 10.3 [facility] Comment on above: Performed By: #### H BA1E #### [facility] [address] [place] [address] Chloride [Moles/Vol] 102 mmol/L Normal 98 - 107 [facility] Comment on above: Performed By: #### H BA1E #### [facility] [address] [place] [address] Creatinine [Mass/Vol] 1.00 mg/dL Normal 0.50 - 1.30 [facility] Comment on above: Performed By: #### H BA1E #### [facility] [address] [place] [address] GFR- AM. >60 Normal >60 [facility] Comment on above: Result Comment: CALC ULATIONS OF ESTIMATED GFR ARE PERFORMED USING THE MDRD STUDY EQUATION FOR THE IDMS-TRACEABLE CREATININE METHODS. CLIN CHEM 2007;53:766-72 Performed By: #### H BA1E #### [facility] [address] [place] [address] GFR-NON AM. >60 Normal >60 [facility] Comment on above: Performed By: #### H BA1E #### [facility] [address] [place] [address] Glucose [Mass/Vol] 91 mg/dL Normal 74 - 99 [facility] Comment on above: Performed By: #### H BA1E #### [facility] [address] [place] [address] HCO3 (Bld) [Moles/Vol] 28 mmol/L Normal 21 - 32 [facility] Comment on above: Performed By: #### H BA1E #### [facility] [address] [place] [address] Potassium [Moles/Vol] 3.6 mmol/L Normal 3.5 - 5.3 [facility] Comment on above: Performed By: #### H BA1E #### [facility] [address] [place] [address] Sodium [Moles/Vol] 140 mmol/L Normal 136 - 145 [facility] Comment on above: Performed By: #### H BA1E #### [facility] [address] [place] [address] Urea nitrogen [Mass/Vol] 20 mg/dL Normal 6 - 23 [facility] Comment on above: Performed By: #### H BA1E #### [facility] [address] [place] [address] CBCon 05-21-2019 Erythrocyte distribution width (RBC) [Ratio] 15.6 % High 11.5 - 14.5 [facility] Comment on above: Performed By: #### H BA1E #### [place] [address] [place] [address] Hematocrit (Bld) [Volume fraction] 29.7 % Low 41.0 - 52.0 [facility] Comment on above: Performed By: #### H BA1E #### [facility] [address] [place] [address] Hemoglobin (Bld) [Mass/Vol] 9.2 g/dL Low 13.5 - 17.5 [facility] Comment on above: Performed By: #### H BA1E #### [facility] [address] [place] [address] MCHC (RBC) [Mass/Vol] 31.0 g/dL Low 32.0 - 36.0 [facility] Comment on above: Performed By: #### H BA1E #### [facility] [address] [place] [address] MCV (RBC) [Entitic vol] 93 fL Normal 80 - 100 [facility] Comment on above: Performed By: #### H BA1E #### [facility] [address] [place] [address] Platelets (Bld) [#/Vol] 388 10*3/uL Normal 150 - 450 [facility] Comment on above: Performed By: #### H BA1E #### [facility] [address] [place] [address] RBC (Bld) [#/Vol] 3.21 x10E12/L Low 4.50 - 5.90 [facility] Comment on above: Performed By: #### H BA1E #### [facility] [address] [place] [address] WBC (Bld) [#/Vol] 9.3 10*3/uL Normal 4.4 - 11.3 [facility] Comment on above: Performed By: #### H BA1E #### [facility] [address] [place] [address] BASIC METABOLIC PANELon 05-01 Anion gap [Moles/Vol] 14 mmol/L Normal 10 - 20 [facility] Comment on above: Performed By: #### H BA1E #### [facility] [address] [place] [address] Calcium [Mass/Vol] 9.1 mg/dL Normal 8.6 - 10.3 [facility] Comment on above: Performed By: #### H BA1E #### [facility] [address] [place] [address] Chloride [Moles/Vol] 100 mmol/L Normal 98 - 107 [facility] Comment on above: Performed By: #### H BA1E #### [place] [address] [place] [address] Creatinine [Mass/Vol] 0.90 mg/dL Normal 0.50 - 1.30 [facility] Comment on above: Performed By: #### H BA1E #### [facility] [address] [place] [address] GFR- AM. >60 Normal >60 [facility] Comment on above: Result Comment: CALC ULATIONS OF ESTIMATED GFR ARE PERFORMED USING THE MDRD STUDY EQUATION FOR THE IDMS-TRACEABLE CREATININE METHODS. CLIN CHEM 2007;53:766-72 Performed By: #### H BA1E #### [facility] [address] [place] [address] GFR-NON AM. >60 Normal >60 [facility] Comment on above: Performed By: #### H BA1E #### [facility] [address] [place] [address] Glucose [Mass/Vol] 102 mg/dL High 74 - 99 [facility] Comment on above: Performed By: #### H BA1E #### [facility] [address] [place] [address] HCO3 (Bld) [Moles/Vol] 28 mmol/L Normal 21 - 32 [facility] Comment on above: Performed By: #### H BA1E #### [facility] [address] [place] [address] Potassium [Moles/Vol] 3.8 mmol/L Normal 3.5 - 5.3 [facility] Comment on above: Performed By: #### H BA1E #### [facility] [address] [place] [address] Sodium [Moles/Vol] 138 mmol/L Normal 136 - 145 [facility] Comment on above: Performed By: #### H BA1E #### [facility] [address] [place] [address] Urea nitrogen [Mass/Vol] 23 mg/dL Normal 6 - 23 [facility] Comment on above: Performed By: #### H BA1E #### [facility] [address] [place] [address] CBCon 05-17-2019 Erythrocyte distribution width (RBC) [Ratio] 15.7 % High 11.5 - 14.5 [facility] Comment on above: Performed By: #### H BA1E #### [facility] [address] [place] [address] Hematocrit (Bld) [Volume fraction] 27.6 % Low 41.0 - 52.0 [facility] Comment on above: Performed By: #### H BA1E #### [facility] [address] [place] [address] Hemoglobin (Bld) [Mass/Vol] 8.7 g/dL Low 13.5 - 17.5 [facility] Comment on above: Performed By: #### H BA1E #### [facility] [address] [place] [address] MCHC (RBC) [Mass/Vol] 31.5 g/dL Low 32.0 - 36.0 [facility] Comment on above: Performed By: #### H BA1E #### [facility] [address] [place] [address] MCV (RBC) [Entitic vol] 92 fL Normal 80 - 100 [facility] Comment on above: Performed By: #### H BA1E #### [facility] [address] [place] [address] Platelets (Bld) [#/Vol] 352 10*3/uL Normal 150 - 450 [facility] Comment on above: Performed By: #### H BA1E #### [facility] [address] [place] [address] RBC (Bld) [#/Vol] 3.00 x10E12/L Low 4.50 - 5.90 [facility] Comment on above: Performed By: #### H BA1E #### [facility] [address] [place] [address] WBC (Bld) [#/Vol] 8.8 10*3/uL Normal 4.4 - 11.3 [facility] Comment on above: Performed By: #### H BA1E #### [facility] [address] [place] [address] DIGOXINon 05-17-2019 Digoxin [Mass/Vol] 0.90 ng/mL Normal 0.80 - 2.00 [facility] Comment on above: Performed By: #### H BA1E #### [facility] [address] [place] [address] VITAMIN D, 25-HYDROXYon 05-01 VITAMIN D, 25-HYDROXY 10 ng/mL Abnormal [facility] Comment on above: Result Comment: . DEFICIENCY: < 20 NG/ML INSUFFICIENCY: 20-29 NG/ML OPTIMUM LEVEL: 30-80 NG/ML POSSIBLE TOXICITY: > 80 NG/ML THIS ASSAY ACCURATELY QUANTIFIES THE SUM OF VITAMIN D3, 25-HYDROXY AND VIT D2,25-HYDROXY. Performed By: #### H BA1E #### [facility] [address] [place] [address] BASIC METABOLIC PANELon 05-01 Anion gap [Moles/Vol] 13 mmol/L Normal 10 - 20 [facility] Comment on above: Performed By: #### C MP #### [facility] [address] [place] [address] Calcium [Mass/Vol] 9.1 mg/dL Normal 8.6 - 10.3 [facility] Comment on above: Performed By: #### C MP #### [address] [address] Chloride [Moles/Vol] 99 mmol/L Normal 98 - 107 [facility] Comment on above: Performed By: #### C MP #### [address] [address] Creatinine [Mass/Vol] 1.00 mg/dL Normal 0.50 - 1.30 [facility] Comment on above: Performed By: #### C MP #### [address] [address] GFR- AM. >60 Normal >60 [facility] Comment on above: Result Comment: CALC ULATIONS OF ESTIMATED GFR ARE PERFORMED USING THE MDRD STUDY EQUATION FOR THE IDMS-TRACEABLE CREATININE METHODS. CLIN CHEM 2007;53:766-72 Performed By: #### C MP #### [address] [address] GFR-NON AM. >60 Normal >60 [facility] Comment on above: Performed By: #### C MP #### [address] [address] Glucose [Mass/Vol] 117 mg/dL High 74 - 99 [facility] Comment on above: Performed By: #### C MP #### [address] [address] HCO3 (Bld) [Moles/Vol] 28 mmol/L Normal 21 - 32 [facility] Comment on above: Performed By: #### C MP #### [address] [address] Potassium [Moles/Vol] 4.0 mmol/L Normal 3.5 - 5.3 [facility] Comment on above: Performed By: #### C MP #### [address] [address] Sodium [Moles/Vol] 136 mmol/L Normal 136 - 145 [facility] Comment on above: Performed By: #### C MP #### [address] [address] Urea nitrogen [Mass/Vol] 27 mg/dL High 6 - 23 [facility] Comment on above: Performed By: #### C MP #### [address] [address] CBCon 05-16-2019 Erythrocyte distribution width (RBC) [Ratio] 15.7 % High 11.5 - 14.5 [facility] Comment on above: Performed By: #### C MP #### [address] [address] Hematocrit (Bld) [Volume fraction] 28.8 % Low 41.0 - 52.0 [facility] Comment on above: Performed By: #### C MP #### [address] [address] Hemoglobin (Bld) [Mass/Vol] 8.9 g/dL Low 13.5 - 17.5 [facility] Comment on above: Performed By: #### C MP #### [address] [address] MCHC (RBC) [Mass/Vol] 30.9 g/dL Low 32.0 - 36.0 [facility] Comment on above: Performed By: #### C MP #### [address] [address] MCV (RBC) [Entitic vol] 93 fL Normal 80 - 100 [facility] Comment on above: Performed By: #### C MP #### [address] [address] Platelets (Bld) [#/Vol] 370 10*3/uL Normal 150 - 450 [facility] Comment on above: Performed By: #### C MP #### [address] [address] RBC (Bld) [#/Vol] 3.11 x10E12/L Low 4.50 - 5.90 [facility] Comment on above: Performed By: #### C MP #### [address] [address] WBC (Bld) [#/Vol] 8.9 10*3/uL Normal 4.4 - 11.3 [facility] Comment on above: Performed By: #### C #### [facility] [address] [place] [address] CT L-SPINE WO CONTRASTon CT L-SPINE WO CONTRAST Patient Name: RUBEN LAI STUDY: CT L-SPINE WO CONTRAST; 05/15/2019 2:00 pm INDICATION: fracture. Right over by tractor with multiple rib fractures and back pain. COMPARISON: None. ACCESSION NUMBER(S): [id number] ORDERING CLINICIAN: SHARLENE RODRIGUEZ TECHNIQUE: Contiguous axial CT sections are performed through the lumbar spine is supplemented with coronal and sagittal reformatted images. FINDINGS: There is bilateral L5 spondylolysis with anterolisthesis measuring 6 mm. The remaining AP alignment is within normal limits. There are multilevel discogenic degenerative changes lumbar spine with disc space narrowing more pronounced at L3-4 and L2-3. Vacuum disc is identified from L2 through L5. The lumbar vertebral heights are maintained. The patient is status post midline decompression at the L4 and L4-5 levels. Patient is status post bilateral hip osteoarthritis. There is a 2 mm calculus in the lower pole of the left kidney medially and partially visualized large calculus in the upper pole. There is prominence of the left renal pelvis. The T12-L1 disc space level demonstrates mild facet arthrosis and mild bulging disc. There is no significant central canal or neural foraminal stenosis. The L1-2 disc space level demonstrates mild bilateral facet arthrosis though is otherwise unremarkable. The L2-3 disc space level demonstrates mild to moderate bilateral facet arthrosis and ligamentum flavum hypertrophy. There is moderate circumferential bulging disc with moderate central canal narrowing. There is disc encroachment and narrowing of the caudal aspect of both neural foramen. The L3-4 disc space level demonstrates severe bilateral facet arthrosis. There is moderate circumferential bulging disc and marginal osteophyte contributing to severe central canal stenosis. There is disc and osteophyte encroachment on the caudal aspect of both neural foramen with bilateral neural foraminal narrowing, greater on the left. The L4-5 disc space level demonstrates previous midline decompression. There is moderate circumferential bulging disc. There is bilateral neural foraminal stenosis secondary to disc and osteophyte encroachment. The L5-S1 disc space level demonstrates bilateral L5 spondylolysis with L5 anterolisthesis. There is superimposed bulging disc with bilateral neural foraminal narrowing. There is no significant central canal stenosis. IMPRESSION: L5 anterolisthesis measuring 6 mm. Multilevel discogenic degenerative changes of the lumbar spine more pronounced from L2 through L4. Multilevel bulging disc and hypertrophic facet arthrosis with severe central canal narrowing at L3-4 and moderate canal narrowing at L2-3. There is bilateral neural foraminal stenosis in the lower lumbar spine from L3 through S1 though greater at L4-5. No evidence of acute fracture. Incidental left renal calculi. Electronically signed by: CHELSEA CORDOVA MD [facility] CT T-SPINE WO CONTRASTon CT T-SPINE WO CONTRAST Addendum Begins Patient Name: RUBEN LAI ADDENDUM: There are nondisplaced fractures of the right 2nd rib posteriorly, adjacent to the transverse process in the right 5th rib adjacent to the vertebral body with intra-articular extension. There is also nondisplaced fracture of the medial left 1st rib adjacent to the vertebral body. There is of the right coracoid process with a comminuted displaced fracture 7 mm of distraction at the fracture site. Electronically signed by: CHELSEA CORDOVA MD Addendum Ends Patient Name: RUBEN LAI STUDY: CT T-SPINE WO CONTRAST; 05/15/2019 2:00 pm INDICATION: fracture. COMPARISON: None. ACCESSION NUMBER(S): [id number] ORDERING CLINICIAN: SHARLENE RODRIGUEZ TECHNIQUE: Contiguous axial CT sections are performed through the thoracic spine and supplemented with coronal and sagittal reformatted images. FINDINGS: There is mild dextro conspicuous city of the midthoracic spine. There are mild to moderate multilevel discogenic degenerative changes of the thoracic spine with mild disc space narrowing, disc space calcification, and small marginal osteophytes, more pronounced anteriorly. Multilevel Schmorl's node deformity is identified. The thoracic vertebral heights and AP alignment are within normal limits. There is no CT evidence of acute thoracic spine fracture or subluxation. There is no bone destruction or aggressive periosteal reaction. No lytic or blastic lesions identified. There are displaced fractures of the lateral right 2nd and 3rd rib with some evidence of surrounding callus. Postoperative changes with plate and screw fixation is identified at the right 4th rib fracture site There is no evidence of central canal narrowing. There is a small to moderate size right pleural effusion and small left pleural effusion. There is ground-glass density in both lung centrally which could reflect a mild degree of edema.. There are linear areas there is mild dependent atelectasis in the lower lobes of atelectasis in the right upper lobe laterally. An endotracheal tube is in place with the tip above the dave. There are atherosclerotic arterial calcifications of the coronary arteries and thoracic aorta. There are multiple lymph nodes in the mediastinum. A pre tracheal lymph node measures 2.0 x 1.3 cm in diameter though has a fatty hilum. Calcified subcarinal lymph nodes are suspected. There are calcified granuloma in the spleen. IMPRESSION: Mild to moderate multilevel discogenic degenerative changes of the thoracic spine with dextro convexity. No CT evidence thoracic spine fracture or subluxation. Healing displaced fractures of the right 2nd and 3rd rib and postoperative changes at the right 4th rib. Bilateral pleural effusions, greater on the right. Nonspecific calcified or noncalcified lymph nodes in mediastinum. Faint bilateral ground-glass density could reflect a component of edema. There is superimposed linear atelectasis in the right upper lobe. Atherosclerotic arterial calcifications of the coronary arteries and thoracic aorta. Electronically signed by: CHELSEA CORDOVA MD Normal [facility] TSHon 05-15-2019 TSH Qn 4.01 m[IU]/L High 0.44 - 3.98 [facility] Comment on above: Result Comment: TSH testing is performed using different testing methodology at [facility] than at other [facility]. Direct result comparisons should only be made within the same method. Performed By: #### C MP #### [address] [address] BASIC METABOLIC PANELon 05-01 Anion gap [Moles/Vol] 14 mmol/L Normal 10 - 20 [facility] Comment on above: Performed By: #### C MP #### [address] [address] Calcium [Mass/Vol] 9.2 mg/dL Normal 8.6 - 10.3 [facility] Comment on above: Performed By: #### C MP #### [address] [address] Chloride [Moles/Vol] 98 mmol/L Normal 98 - 107 [facility] Comment on above: Performed By: #### C MP #### [address] [address] Creatinine [Mass/Vol] 1.00 mg/dL Normal 0.50 - 1.30 [facility] Comment on above: Performed By: #### C MP #### [address] [address] GFR- AM. >60 Normal >60 [facility] Comment on above: Result Comment: CALC ULATIONS OF ESTIMATED GFR ARE PERFORMED USING THE MDRD STUDY EQUATION FOR THE IDMS-TRACEABLE CREATININE METHODS. CLIN CHEM 2007;53:766-72 Performed By: #### C MP #### [address] [address] GFR-NON AM. >60 Normal >60 [facility] Comment on above: Performed By: #### C MP #### [address] [address] Glucose [Mass/Vol] 95 mg/dL Normal 74 - 99 [facility] Comment on above: Performed By: #### C MP #### [address] [address] HCO3 (Bld) [Moles/Vol] 27 mmol/L Normal 21 - 32 [facility] Comment on above: Performed By: #### C MP #### [address] [address] Potassium [Moles/Vol] 3.8 mmol/L Normal 3.5 - 5.3 [facility] Comment on above: Performed By: #### C MP #### [address] [address] Sodium [Moles/Vol] 135 mmol/L Low 136 - 145 [facility] Comment on above: Performed By: #### C MP #### [address] [address] Urea nitrogen [Mass/Vol] 23 mg/dL Normal 6 - 23 [facility] Comment on above: Performed By: #### C MP #### [address] [address] CBCon 05-14-2019 Erythrocyte distribution width (RBC) [Ratio] 15.7 % High 11.5 - 14.5 [facility] Comment on above: Performed By: #### C MP #### [address] [address] Hematocrit (Bld) [Volume fraction] 28.1 % Low 41.0 - 52.0 [facility] Comment on above: Performed By: #### C MP #### [address] [address] Hemoglobin (Bld) [Mass/Vol] 8.9 g/dL Low 13.5 - 17.5 [facility] Comment on above: Performed By: #### C MP #### [address] [address] MCHC (RBC) [Mass/Vol] 31.7 g/dL Low 32.0 - 36.0 [facility] Comment on above: Performed By: #### C MP #### [address] [address] MCV (RBC) [Entitic vol] 91 fL Normal 80 - 100 [facility] Comment on above: Performed By: #### C MP #### [address] [address] Platelets (Bld) [#/Vol] 325 10*3/uL Normal 150 - 450 [facility] Comment on above: Performed By: #### C MP #### [address] [address] RBC (Bld) [#/Vol] 3.08 x10E12/L Low 4.50 - 5.90 [facility] Comment on above: Performed By: #### C MP #### [address] [address] WBC (Bld) [#/Vol] 9.4 10*3/uL Normal 4.4 - 11.3 [facility] Comment on above: Performed By: #### C MP #### [facility] [address] [place] [address] GLUCOSEon 05-12-2019 Glucose [Mass/Vol] 356 mg/dL High 74 - 99 [facility] Comment on above: Performed By: #### C MP #### [facility] [address] [place] [address] BASIC METABOLIC PANELon 05-01 Anion gap [Moles/Vol] 12 mmol/L Normal 10 - 20 [facility] Comment on above: Performed By: #### B MP ####[address] [address] Calcium [Mass/Vol] 9.1 mg/dL Normal 8.6 - 10.3 [facility] Comment on above: Performed By: #### B MP ####[address] [address] Chloride [Moles/Vol] 100 mmol/L Normal 98 - 107 [facility] Comment on above: Performed By: #### B MP ####[address] [address] Creatinine [Mass/Vol] 1.00 mg/dL Normal 0.50 - 1.30 [facility] Comment on above: Performed By: #### B MP ####[address] [address] GFR- AM. >60 Normal >60 [facility] Comment on above: Result Comment: CALC ULATIONS OF ESTIMATED GFR ARE PERFORMED USING THE MDRD STUDY EQUATION FOR THE IDMS-TRACEABLE CREATININE METHODS. CLIN CHEM 2007;53:766-72 Performed By: #### B MP ####[address] [address] GFR-NON AM. >60 Normal >60 [facility] Comment on above: Performed By: #### B MP ####[address] [address] Glucose [Mass/Vol] 210 mg/dL High 74 - 99 [facility] Comment on above: Performed By: #### B MP ####[facility] [place] [address] HCO3 (Bld) [Moles/Vol] 27 mmol/L Normal 21 - 32 [facility] Comment on above: Performed By: #### B MP ####[address] [address] Potassium [Moles/Vol] 4.1 mmol/L Normal 3.5 - 5.3 [facility] Comment on above: Performed By: #### B MP ####[address] [address] Sodium [Moles/Vol] 135 mmol/L Low 136 - 145 [facility] Comment on above: Performed By: #### B MP ####[address] [address] Urea nitrogen [Mass/Vol] 24 mg/dL High 6 - 23 [facility] Comment on above: Performed By: #### B MP ####[address] [address] CBCon 05-10-2019 Erythrocyte distribution width (RBC) [Ratio] 16.6 % High 11.5 - 14.5 [facility] Comment on above: Performed By: #### C MP #### [address] [address] Hematocrit (Bld) [Volume fraction] 29.8 % Low 41.0 - 52.0 [facility] Comment on above: Performed By: #### C MP #### [facility] [address] [place] [address] Hemoglobin (Bld) [Mass/Vol] 9.1 g/dL Low 13.5 - 17.5 [facility] Comment on above: Performed By: #### C MP #### [address] [address] MCHC (RBC) [Mass/Vol] 30.5 g/dL Low 32.0 - 36.0 [facility] Comment on above: Performed By: #### C MP #### [address] [address] MCV (RBC) [Entitic vol] 94 fL Normal 80 - 100 [facility] Comment on above: Performed By: #### C MP #### [address] [address] Platelets (Bld) [#/Vol] 273 10*3/uL Normal 150 - 450 [facility] Comment on above: Performed By: #### C MP #### [address] [address] RBC (Bld) [#/Vol] 3.17 x10E12/L Low 4.50 - 5.90 [facility] Comment on above: Performed By: #### C MP #### [address] [address] WBC (Bld) [#/Vol] 8.4 10*3/uL Normal 4.4 - 11.3 [facility] Comment on above: Performed By: #### C MP #### [address] [address] HIP, UNILATERAL W/PELVIS WHE N PERFORMED 2-3 VIEWSon 05-09-2019 HIP, UNILATERAL W/PELVIS WHEN PERFORMED 2-3 VIEWS Patient Name: RUBEN LAI STUDY: HIP, UNILATERAL W/PELVIS WHEN PERFORMED 2-3 VIEWS;Right; 05/09/2019 11:20 am INDICATION: pain. COMPARISON: None. ACCESSION NUMBER(S): [id number] ORDERING CLINICIAN: SHARLENE RODRIGUEZ FINDINGS: Medial hip joint space narrowing. Mild enthesopathy changes in the acetabulum and the femoral head. Joint space narrowing, spurring in the symphysis pubis. No acute fractures or dislocations. IMPRESSION: No acute fractures or dislocations. Electronically signed by: LUCIA NICK MD Normal [facility] KNEE 1 OR 2 VIEWSon 05-09-20 19 KNEE 1 OR 2 VIEWS Patient Name: RUBEN LAI STUDY: KNEE; 1 OR 2 VIEWS; 05/09/2019 11:22 am INDICATION: pain. COMPARISON: None. ACCESSION NUMBER(S): [id number] ORDERING CLINICIAN: SHARLENE RODRIGUEZ TECHNIQUE: AP and lateral portable views of the right knee were obtained. FINDINGS: Large osteophyte at the tibial insertion of the patellar tendon and also at the patellar origin of the patellar tendon. Large osteophyte at the patellar insertion of the quadriceps tendon. No suprapatellar effusion. The joint spaces of the knee are preserved. No lytic or blastic destructive bone lesion. No acute fracture or dislocation. No opaque soft tissue foreign body. No periosteal reaction or erosion. IMPRESSION: No acute fracture or dislocation or effusion. Arthritic changes as described. Electronically signed by: PRATIMA DIETRICH MD Normal [facility] BASIC METABOLIC PANELon 10-0 Anion gap [Moles/Vol] 14 mmol/L Normal 10 - 20 [facility] Comment on above: Performed By: #### B MP ####[address] [address] Calcium [Mass/Vol] 9.0 mg/dL Normal 8.6 - 10.3 [facility] Comment on above: Performed By: #### B MP ####[address] [address] Chloride [Moles/Vol] 99 mmol/L Normal 98 - 107 [facility] Comment on above: Performed By: #### B MP ####[address] [address] Creatinine [Mass/Vol] 1.10 mg/dL Normal 0.50 - 1.30 [facility] Comment on above: Performed By: #### B MP ####[address] [address] GFR- AM. >60 Normal >60 [facility] Comment on above: Result Comment: CALC ULATIONS OF ESTIMATED GFR ARE PERFORMED USING THE MDRD STUDY EQUATION FOR THE IDMS-TRACEABLE CREATININE METHODS. CLIN CHEM 2007;53:766-72 Performed By: #### B MP ####[address] [address] GFR-NON AM. >60 Normal >60 [facility] Comment on above: Performed By: #### B MP ####[address] [address] Glucose [Mass/Vol] 177 mg/dL High 74 - 99 [facility] Comment on above: Performed By: #### B MP ####[address] [address] HCO3 (Bld) [Moles/Vol] 28 mmol/L Normal 21 - 32 [facility] Comment on above: Performed By: #### B MP ####[address] [address] Potassium [Moles/Vol] 3.7 mmol/L Normal 3.5 - 5.3 [facility] Comment on above: Performed By: #### B MP ####[address] [address] Sodium [Moles/Vol] 137 mmol/L Normal 136 - 145 [facility] Comment on above: Performed By: #### B MP ####[address] [address] Urea nitrogen [Mass/Vol] 23 mg/dL Normal 6 - 23 [facility] Comment on above: Performed By: #### B MP ####[address] [address] CBCon 05-07-2019 Erythrocyte distribution width (RBC) [Ratio] 16.1 % High 11.5 - 14.5 [facility] Comment on above: Performed By: #### C BC ####[address] [address] Hematocrit (Bld) [Volume fraction] 32.4 % Low 41.0 - 52.0 [facility] Comment on above: Performed By: #### C BC ####[address] [address] Hemoglobin (Bld) [Mass/Vol] 10.0 g/dL Low 13.5 - 17.5 [facility] Comment on above: Performed By: #### C BC ####[address] [address] MCHC (RBC) [Mass/Vol] 30.9 g/dL Low 32.0 - 36.0 [facility] Comment on above: Performed By: #### C BC ####[facility] [place] [address] MCV (RBC) [Entitic vol] 94 fL Normal 80 - 100 [facility] Comment on above: Performed By: #### C BC ####[facility] [place] [address] Platelets (Bld) [#/Vol] 277 10*3/uL Normal 150 - 450 [facility] Comment on above: Performed By: #### C BC ####[facility] [place] [address] RBC (Bld) [#/Vol] 3.46 x10E12/L Low 4.50 - 5.90 [facility] Comment on above: Performed By: #### C BC ####[facility] [place] [address] WBC (Bld) [#/Vol] 9.4 10*3/uL Normal 4.4 - 11.3 [facility] Comment on above: Performed By: #### C BC ####[facility] [place] [address] CLOST DIFF. TOXIN, PCRon CLOST.DIFF.TOXIN,PCR NOT DETECTED Normal Not Detected [facility] Comment on above: Result Comment: This assay detects the presence of the tcdB (toxin B) gene via DNA amplification, and results should be interpreted in the context of the patients history and clinical findings. This test cannot be performed on formed stools or used as a test of cure, and should not be performed more than once per 7 days. Performed By: #### C [facility] ####[facility] [place] [address] CHEST 1 VIEWon 05-04-2019 CHEST 1 VIEW Patient Name: RUBEN LAI STUDY: CHEST 1 VIEW; 05/04/2019 5:55 am INDICATION: follow up. COMPARISON: 04/19/2019 ACCESSION NUMBER(S): [id number] ORDERING CLINICIAN: EULALIA YOUNG FINDINGS: CARDIOMEDIASTINAL SILHOUETTE: Tracheostomy tube is seen in the midthoracic trachea. Left-sided PICC line is seen in the cavoatrial junction.Cardiomediastinal silhouette is normal in size and configuration. LUNGS: There is no confluent airspace disease or effusion. ABDOMEN: No remarkable upper abdominal findings. BONES: There is stable acute left lateral rib fractures with displacement and left posterior rib fractures with displacement. Old compression plate screws are seen right rib fractures. IMPRESSION: Tracheostomy tube and left-sided PICC line as described above. No focal infiltrate or effusion. Acute left lateral and posterior rib fractures. Electronically signed by: CHAIM ROMO MD Normal [facility] BASIC METABOLIC PANELon 10-0 Anion gap [Moles/Vol] 13 mmol/L Normal 10 - 20 [facility] Comment on above: Performed By: #### B MP ####[address] [address] Calcium [Mass/Vol] 8.8 mg/dL Normal 8.6 - 10.3 [facility] Comment on above: Performed By: #### B MP ####[address] [address] Chloride [Moles/Vol] 101 mmol/L Normal 98 - 107 [facility] Comment on above: Performed By: #### B MP ####[address] [address] Creatinine [Mass/Vol] 1.00 mg/dL Normal 0.50 - 1.30 [facility] Comment on above: Performed By: #### B MP ####[address] [address] GFR- AM. >60 Normal >60 [facility] Comment on above: Result Comment: CALC ULATIONS OF ESTIMATED GFR ARE PERFORMED USING THE MDRD STUDY EQUATION FOR THE IDMS-TRACEABLE CREATININE METHODS. CLIN CHEM 2007;53:766-72 Performed By: #### B MP ####[address] [address] GFR-NON AM. >60 Normal >60 [facility] Comment on above: Performed By: #### B MP ####[address] [address] Glucose [Mass/Vol] 150 mg/dL High 74 - 99 [facility] Comment on above: Performed By: #### B MP ####[address] [address] HCO3 (Bld) [Moles/Vol] 27 mmol/L Normal 21 - 32 [facility] Comment on above: Performed By: #### B MP ####[address] [address] Potassium [Moles/Vol] 3.9 mmol/L Normal 3.5 - 5.3 [facility] Comment on above: Performed By: #### B MP ####[address] [address] Sodium [Moles/Vol] 137 mmol/L Normal 136 - 145 [facility] Comment on above: Performed By: #### B MP ####[address] [address] Urea nitrogen [Mass/Vol] 23 mg/dL Normal 6 - 23 [facility] Comment on above: Performed By: #### B MP ####[address] [address] CBCon 05-03-2019 Erythrocyte distribution width (RBC) [Ratio] 15.6 % High 11.5 - 14.5 [facility] Comment on above: Performed By: #### C BC ####[address] [address] Hematocrit (Bld) [Volume fraction] 31.6 % Low 41.0 - 52.0 [facility] Comment on above: Performed By: #### C BC ####[address] [address] Hemoglobin (Bld) [Mass/Vol] 9.8 g/dL Low 13.5 - 17.5 [facility] Comment on above: Performed By: #### C BC ####[address] [address] MCHC (RBC) [Mass/Vol] 31.0 g/dL Low 32.0 - 36.0 [facility] Comment on above: Performed By: #### C BC ####[address] [address] MCV (RBC) [Entitic vol] 93 fL Normal 80 - 100 [facility] Comment on above: Performed By: #### C BC ####[address] [address] Platelets (Bld) [#/Vol] 264 10*3/uL Normal 150 - 450 [facility] Comment on above: Performed By: #### C BC ####[address] [address] RBC (Bld) [#/Vol] 3.39 x10E12/L Low 4.50 - 5.90 [facility] Comment on above: Performed By: #### C BC ####[address] [address] WBC (Bld) [#/Vol] 7.7 10*3/uL Normal 4.4 - 11.3 [facility] Comment on above: Performed By: #### C BC ####[address] [address] BASIC METABOLIC PANELon 09-3 Anion gap [Moles/Vol] 8 mmol/L Low 10 - 20 [facility] Comment on above: Performed By: #### B MP ####[address] [address] Calcium [Mass/Vol] 8.5 mg/dL Low 8.6 - 10.3 [facility] Comment on above: Performed By: #### B MP ####[address] [address] Chloride [Moles/Vol] 102 mmol/L Normal 98 - 107 [facility] Comment on above: Performed By: #### B MP ####[address] [address] Creatinine [Mass/Vol] 1.00 mg/dL Normal 0.50 - 1.30 [facility] Comment on above: Performed By: #### B MP ####[address] [address] GFR- AM. >60 Normal >60 [facility] Comment on above: Result Comment: CALC ULATIONS OF ESTIMATED GFR ARE PERFORMED USING THE MDRD STUDY EQUATION FOR THE IDMS-TRACEABLE CREATININE METHODS. CLIN CHEM 2007;53:766-72 Performed By: #### B MP ####[address] [address] GFR-NON AM. >60 Normal >60 [facility] Comment on above: Performed By: #### B MP ####[address] [address] Glucose [Mass/Vol] 118 mg/dL High 74 - 99 [facility] Comment on above: Performed By: #### B MP ####[address] [address] HCO3 (Bld) [Moles/Vol] 31 mmol/L Normal 21 - 32 [facility] Comment on above: Performed By: #### B MP ####[address] [address] Potassium [Moles/Vol] 3.8 mmol/L Normal 3.5 - 5.3 [facility] Comment on above: Performed By: #### B MP ####[address] [address] Sodium [Moles/Vol] 137 mmol/L Normal 136 - 145 [facility] Comment on above: Performed By: #### B MP ####[address] [address] Urea nitrogen [Mass/Vol] 24 mg/dL High 6 - 23 [facility] Comment on above: Performed By: #### B MP ####[address] [address] CBCon 04-30-2019 Erythrocyte distribution width (RBC) [Ratio] 15.5 % High 11.5 - 14.5 [facility] Comment on above: Performed By: #### C BC #### [address] [address] Hematocrit (Bld) [Volume fraction] 30.2 % Low 41.0 - 52.0 [facility] Comment on above: Performed By: #### C BC #### [address] [address] Hemoglobin (Bld) [Mass/Vol] 9.3 g/dL Low 13.5 - 17.5 [facility] Comment on above: Performed By: #### C BC #### [address] [address] MCHC (RBC) [Mass/Vol] 30.8 g/dL Low 32.0 - 36.0 [facility] Comment on above: Performed By: #### C BC #### [address] [address] MCV (RBC) [Entitic vol] 94 fL Normal 80 - 100 [facility] Comment on above: Performed By: #### C BC #### [address] [address] Platelets (Bld) [#/Vol] 273 10*3/uL Normal 150 - 450 [facility] Comment on above: Performed By: #### C BC #### [address] [address] RBC (Bld) [#/Vol] 3.20 x10E12/L Low 4.50 - 5.90 [facility] Comment on above: Performed By: #### C BC #### [address] [address] WBC (Bld) [#/Vol] 9.5 10*3/uL Normal 4.4 - 11.3 [facility] Comment on above: Performed By: #### C BC #### [address] [address] BASIC METABOLIC PANELon 04-02 Anion gap [Moles/Vol] Canceled Normal [facility] Comment on above: Order Comment: TEST BASIC METABOLIC PANEL WAS CANCELLED, 04/27/2019 22:25 TEST CANCELLED PERNURSE/DOCTOR: Tara Jimenez RN. Performed By: #### C BC #### [address] [address] Calcium [Mass/Vol] Canceled Normal [facility] Comment on above: Order Comment: TEST BASIC METABOLIC PANEL WAS CANCELLED, 04/27/2019 22:25 TEST CANCELLED PERNURSE/DOCTOR: Tara Jimenez RN. Performed By: #### C BC #### [address] [address] Chloride [Moles/Vol] Canceled Normal [facility] Comment on above: Order Comment: TEST BASIC METABOLIC PANEL WAS CANCELLED, 04/27/2019 22:25 TEST CANCELLED PERNURSE/DOCTOR: Tara Jimenez RN. Performed By: #### C BC #### [address] [address] Creatinine [Mass/Vol] Canceled Normal [facility] Comment on above: Order Comment: TEST BASIC METABOLIC PANEL WAS CANCELLED, 04/27/2019 22:25 TEST CANCELLED PERNURSE/DOCTOR: Tara Jimenez RN. Performed By: #### C BC #### [address] [address] GFR- AM. Canceled Normal [facility] Comment on above: Order Comment: TEST BASIC METABOLIC PANEL WAS CANCELLED, 04/27/2019 22:25 TEST CANCELLED PERNURSE/DOCTOR: Tara Jimenez RN. Result Comment: CALC ULATIONS OF ESTIMATED GFR ARE PERFORMED USING THE MDRD STUDY EQUATION FOR THE IDMS-TRACEABLE CREATININE METHODS. CLIN CHEM 2007;53:766-72 Performed By: #### C BC #### [address] [address] GFR-NON AM. Canceled Normal [facility] Comment on above: Order Comment: TEST BASIC METABOLIC PANEL WAS CANCELLED, 04/27/2019 22:25 TEST CANCELLED PERNURSE/DOCTOR: Tara Jimenez RN. Performed By: #### C BC #### [address] [address] Glucose [Mass/Vol] Canceled Normal [facility] Comment on above: Order Comment: TEST BASIC METABOLIC PANEL WAS CANCELLED, 04/27/2019 22:25 TEST CANCELLED PERNURSE/DOCTOR: Tara Jimenez RN. Performed By: #### C BC #### [address] [address] HCO3 (Bld) [Moles/Vol] Canceled Normal [facility] Comment on above: Order Comment: TEST BASIC METABOLIC PANEL WAS CANCELLED, 04/27/2019 22:25 TEST CANCELLED PERNURSE/DOCTOR: Tara Jimenez RN. Performed By: #### C BC #### [address] [address] Potassium [Moles/Vol] Canceled Normal [facility] Comment on above: Order Comment: TEST BASIC METABOLIC PANEL WAS CANCELLED, 04/27/2019 22:25 TEST CANCELLED PERNURSE/DOCTOR: Tara Jimenez RN. Performed By: #### C BC #### [address] [address] Sodium [Moles/Vol] Canceled Normal [facility] Comment on above: Order Comment: TEST BASIC METABOLIC PANEL WAS CANCELLED, 04/27/2019 22:25 TEST CANCELLED PERNURSE/DOCTOR: Tara Jimenez RN. Performed By: #### C BC #### [address] [address] Urea nitrogen [Mass/Vol] Canceled Normal [facility] Comment on above: Order Comment: TEST BASIC METABOLIC PANEL WAS CANCELLED, 04/27/2019 22:25 TEST CANCELLED PERNURSE/DOCTOR: Tara Jimenez RN. Performed By: #### C BC #### [address] [address] CBCon 04-28-2019 Erythrocyte distribution width (RBC) [Ratio] Canceled Normal [facility] Comment on above: Order Comment: TEST CBC WAS CANCELLED, 04/27/2019 22:25 TEST CANCELLED PER NURSE/DOCTOR:Tara Jimenez RN. Performed By: #### C BC #### [address] [address] Hematocrit (Bld) [Volume fraction] Canceled Normal [facility] Comment on above: Order Comment: TEST CBC WAS CANCELLED, 04/27/2019 22:25 TEST CANCELLED PER NURSE/DOCTOR:Tara Jimenez RN. Performed By: #### C BC #### [address] [address] Hemoglobin (Bld) [Mass/Vol] Canceled Normal [facility] Comment on above: Order Comment: TEST CBC WAS CANCELLED, 04/27/2019 22:25 TEST CANCELLED PER NURSE/DOCTOR:Tara Jimenez RN. Performed By: #### C BC #### [address] [address] MCHC (RBC) [Mass/Vol] Canceled Normal [facility] Comment on above: Order Comment: TEST CBC WAS CANCELLED, 04/27/2019 22:25 TEST CANCELLED PER NURSE/DOCTOR:Tara Jimenez RN. Performed By: #### C BC #### [address] [address] MCV (RBC) [Entitic vol] Canceled Normal [facility] Comment on above: Order Comment: TEST CBC WAS CANCELLED, 04/27/2019 22:25 TEST CANCELLED PER NURSE/DOCTOR:Tara Jimenez RN. Performed By: #### C BC #### [address] [address] Platelets (Bld) [#/Vol] Canceled Normal [facility] Comment on above: Order Comment: TEST CBC WAS CANCELLED, 04/27/2019 22:25 TEST CANCELLED PER NURSE/DOCTOR:Tara Jimenez RN. Performed By: #### C BC #### [address] [address] RBC (Bld) [#/Vol] Canceled Normal [facility] Comment on above: Order Comment: TEST CBC WAS CANCELLED, 04/27/2019 22:25 TEST CANCELLED PER NURSE/DOCTOR:Tara Jimenez RN. Performed By: #### C BC #### [address] [address] WBC (Bld) [#/Vol] Canceled Normal [facility] Comment on above: Order Comment: TEST CBC WAS CANCELLED, 04/27/2019 22:25 TEST CANCELLED PER NURSE/DOCTOR:Tara Jimenez RN. Performed By: #### C BC #### [address] [address] BASIC METABOLIC PANELon 04-02 Anion gap [Moles/Vol] 11 mmol/L Normal 10 - 20 [facility] Comment on above: Performed By: #### C BC #### [address] [address] Calcium [Mass/Vol] 8.3 mg/dL Low 8.6 - 10.3 [facility] Comment on above: Performed By: #### C BC #### [address] [address] Chloride [Moles/Vol] 103 mmol/L Normal 98 - 107 [facility] Comment on above: Performed By: #### C BC #### [address] [address] Creatinine [Mass/Vol] 1.10 mg/dL Normal 0.50 - 1.30 [facility] Comment on above: Performed By: #### C BC #### [address] [address] GFR- AM. >60 Normal >60 [facility] Comment on above: Result Comment: CALC ULATIONS OF ESTIMATED GFR ARE PERFORMED USING THE MDRD STUDY EQUATION FOR THE IDMS-TRACEABLE CREATININE METHODS. CLIN CHEM 2007;53:766-72 Performed By: #### C BC #### [address] [address] GFR-NON AM. >60 Normal >60 [facility] Comment on above: Performed By: #### C BC #### [address] [address] Glucose [Mass/Vol] 253 mg/dL High 74 - 99 [facility] Comment on above: Performed By: #### C BC #### [facility] [address] [place] [address] HCO3 (Bld) [Moles/Vol] 29 mmol/L Normal 21 - 32 [facility] Comment on above: Performed By: #### C BC #### [address] [address] Potassium [Moles/Vol] 4.2 mmol/L Normal 3.5 - 5.3 [facility] Comment on above: Performed By: #### C BC #### [address] [address] Sodium [Moles/Vol] 139 mmol/L Normal 136 - 145 [facility] Comment on above: Performed By: #### C BC #### [address] [address] Urea nitrogen [Mass/Vol] 24 mg/dL High 6 - 23 [facility] Comment on above: Performed By: #### C BC #### [address] [address] CBCon 04-27-2019 Erythrocyte distribution width (RBC) [Ratio] 15.7 % High 11.5 - 14.5 [facility] Comment on above: Performed By: #### C BC #### [address] [address] Hematocrit (Bld) [Volume fraction] 31.3 % Low 41.0 - 52.0 [facility] Comment on above: Performed By: #### C BC #### [address] [address] Hemoglobin (Bld) [Mass/Vol] 9.3 g/dL Low 13.5 - 17.5 [facility] Comment on above: Performed By: #### C BC #### [address] [address] MCHC (RBC) [Mass/Vol] 29.7 g/dL Low 32.0 - 36.0 [facility] Comment on above: Performed By: #### C BC #### [address] [address] MCV (RBC) [Entitic vol] 95 fL Normal 80 - 100 [facility] Comment on above: Performed By: #### C BC #### [address] [address] Platelets (Bld) [#/Vol] 346 10*3/uL Normal 150 - 450 [facility] Comment on above: Performed By: #### C BC #### [address] [address] RBC (Bld) [#/Vol] 3.31 x10E12/L Low 4.50 - 5.90 [facility] Comment on above: Performed By: #### C BC #### [address] [address] WBC (Bld) [#/Vol] 9.6 10*3/uL Normal 4.4 - 11.3 [facility] Comment on above: Performed By: #### C BC #### [address] [address] BASIC METABOLIC PANELon - Anion gap [Moles/Vol] 12 mmol/L Normal 10 - 20 [facility] Comment on above: Performed By: #### C BC #### [address] [address] Calcium [Mass/Vol] 7.7 mg/dL Low 8.6 - 10.3 [facility] Comment on above: Performed By: #### C BC #### [address] [address] Chloride [Moles/Vol] 105 mmol/L Normal 98 - 107 [facility] Comment on above: Performed By: #### C BC #### [address] [address] Creatinine [Mass/Vol] 1.10 mg/dL Normal 0.50 - 1.30 [facility] Comment on above: Performed By: #### C BC #### [address] [address] GFR- AM. >60 Normal >60 [facility] Comment on above: Result Comment: CALC ULATIONS OF ESTIMATED GFR ARE PERFORMED USING THE MDRD STUDY EQUATION FOR THE IDMS-TRACEABLE CREATININE METHODS. CLIN CHEM 2007;53:766-72 Performed By: #### C BC #### [address] [address] GFR-NON AM. >60 Normal >60 [facility] Comment on above: Performed By: #### C BC #### [address] [address] Glucose [Mass/Vol] 127 mg/dL High 74 - 99 [facility] Comment on above: Performed By: #### C BC #### [address] [address] HCO3 (Bld) [Moles/Vol] 31 mmol/L Normal 21 - 32 [facility] Comment on above: Performed By: #### C BC #### [address] [address] Potassium [Moles/Vol] 4.4 mmol/L Normal 3.5 - 5.3 [facility] Comment on above: Performed By: #### C BC #### [address] [address] Sodium [Moles/Vol] 144 mmol/L Normal 136 - 145 [facility] Comment on above: Performed By: #### C BC #### [address] [address] Urea nitrogen [Mass/Vol] 31 mg/dL High 6 - 23 [facility] Comment on above: Performed By: #### C BC #### [address] [address] BNPon 04-23-2019 Natriuretic peptide B (Bld) [Mass/Vol] 188 pg/mL High 0 - 99 [facility] Comment on above: Result Comment: . <1 00 pg/mL - Heart failure unlikely 100-299 pg/mL - Intermediate probability of acute heart . failure exacerbation. Correlate with clinical . context and patient history. >=300 pg/mL - Heart Failure likely. Correlate with clinical . context and patient history. BNP testing is performed using different testing methodology at [facility] than at other [facility]. Direct result comparisons should only be made within the same method. Performed By: #### C BC #### [address] [address] CBCon 04-23-2019 Erythrocyte distribution width (RBC) [Ratio] 17.0 % High 11.5 - 14.5 [facility] Comment on above: Performed By: #### C BC #### [address] [address] Hematocrit (Bld) [Volume fraction] 29.1 % Low 41.0 - 52.0 [facility] Comment on above: Performed By: #### C BC #### [address] [address] Hemoglobin (Bld) [Mass/Vol] 8.6 g/dL Low 13.5 - 17.5 [facility] Comment on above: Performed By: #### C BC #### [address] [address] MCHC (RBC) [Mass/Vol] 29.6 g/dL Low 32.0 - 36.0 [facility] Comment on above: Performed By: #### C BC #### [address] [address] MCV (RBC) [Entitic vol] 97 fL Normal 80 - 100 [facility] Comment on above: Performed By: #### C BC #### [address] [address] Platelets (Bld) [#/Vol] 454 10*3/uL High 150 - 450 [facility] Comment on above: Performed By: #### C BC #### [address] [address] RBC (Bld) [#/Vol] 3.00 x10E12/L Low 4.50 - 5.90 [facility] Comment on above: Performed By: #### C BC #### [address] [address] WBC (Bld) [#/Vol] 8.5 10*3/uL Normal 4.4 - 11.3 [facility] Comment on above: Performed By: #### C BC #### [address] [address] FECAL OCCULT BLD IMMUNOASSAY on 04-23-2019 FECAL OCCULT BLD IMMUNOASSAY Negative Normal Negative [facility] Comment on above: Result Comment: This test detects colorectal occult blood. Not all colorectal neoplasms induce bleeding. This test is not indicated for upper GI bleeding, anemia or iron deficiency evaluation. . This test is not validated for pediatric populations, interpret pediatric results in the context of patient presentations. . Digital Rectal Exam (FAISAL) which induces bleeding may cause false positive results. If this occurs have patient submit stool at a future date. Performed By: #### C BC #### [address] [address] MAGNESIUMon 04-23-2019 Magnesium [Mass/Vol] 2.40 mg/dL Normal 1.60 - 2.40 [facility] Comment on above: Performed By: #### C BC #### [address] [address] ABO/RH GROUP TESTon 04-21-20 19 ABO TYPE A Normal [facility] Comment on above: Performed By: #### V ERAB ####[address] [place] [address] RH TYPE Positive Normal [facility] Comment on above: Performed By: #### V ERAB ####[address] [address] AMYLASEon 04-21-2019 Amylase [Catalytic activity/Vol] 16 U/L Low 29 - 103 [facility] Comment on above: Performed By: #### A MY ####[address] [address] CBCon 04-21-2019 Erythrocyte distribution width (RBC) [Ratio] 15.1 % High 11.5 - 14.5 [facility] Comment on above: Performed By: #### C BC ####[address] [place] [address] Hematocrit (Bld) [Volume fraction] 23.9 % Low 41.0 - 52.0 [facility] Comment on above: Performed By: #### C BC ####[address] [address] Hemoglobin (Bld) [Mass/Vol] 7.1 g/dL Low 13.5 - 17.5 [facility] Comment on above: Performed By: #### C BC ####[address] [address] MCHC (RBC) [Mass/Vol] 29.7 g/dL Low 32.0 - 36.0 [facility] Comment on above: Performed By: #### C BC ####[address] [address] MCV (RBC) [Entitic vol] 99 fL Normal 80 - 100 [facility] Comment on above: Performed By: #### C BC ####[address] [address] Platelets (Bld) [#/Vol] 481 10*3/uL High 150 - 450 [facility] Comment on above: Performed By: #### C BC ####[address] [address] RBC (Bld) [#/Vol] 2.42 x10E12/L Low 4.50 - 5.90 [facility] Comment on above: Performed By: #### C BC ####[address] [address] WBC (Bld) [#/Vol] 9.4 10*3/uL Normal 4.4 - 11.3 [facility] Comment on above: Performed By: #### C BC ####[address] [address] COMPREHENSIVE PANELon 2018 Albumin [Mass/Vol] 2.6 g/dL Low 3.4 - 5.0 [facility] Comment on above: Performed By: #### C MP ####[address] [address] ALP [Catalytic activity/Vol] 70 U/L Normal 33 - 136 [facility] Comment on above: Performed By: #### C MP ####[address] [address] ALT [Catalytic activity/Vol] 48 U/L Normal 10 - 52 [facility] Comment on above: Result Comment: Sasha ents treated with Sulfasalazine may generate falsely decreased results for ALT. Performed By: #### C MP ####[address] [address] Anion gap [Moles/Vol] 10 mmol/L Normal 10 - 20 [facility] Comment on above: Performed By: #### C MP ####[address] [address] AST [Catalytic activity/Vol] 68 U/L High 9 - 39 [facility] Comment on above: Performed By: #### C MP ####[address] [address] Bilirubin [Mass/Vol] 0.4 mg/dL Normal 0.0 - 1.2 [facility] Comment on above: Performed By: #### C MP ####[address] [address] Calcium [Mass/Vol] 7.7 mg/dL Low 8.6 - 10.3 [facility] Comment on above: Performed By: #### C MP ####[address] [address] Chloride [Moles/Vol] 104 mmol/L Normal 98 - 107 [facility] Comment on above: Performed By: #### C MP ####[address] [address] Creatinine [Mass/Vol] 1.20 mg/dL Normal 0.50 - 1.30 [facility] Comment on above: Performed By: #### C MP ####[address] [address] GFR- AM. 73 mL/min/1.73m2 Normal >60 [facility] Comment on above: Result Comment: CALC ULATIONS OF ESTIMATED GFR ARE PERFORMED USING THE MDRD STUDY EQUATION FOR THE IDMS-TRACEABLE CREATININE METHODS. CLIN CHEM 2007;53:766-72 Performed By: #### C MP ####[address] [address] GFR-NON AM. 60 mL/min/1.73m2 Abnormal >60 [facility] Comment on above: Performed By: #### C MP ####[address] [address] Glucose [Mass/Vol] 162 mg/dL High 74 - 99 [facility] Comment on above: Performed By: #### C MP ####[address] [address] HCO3 (Bld) [Moles/Vol] 34 mmol/L High 21 - 32 [facility] Comment on above: Performed By: #### C MP ####[address] [address] Potassium [Moles/Vol] 4.2 mmol/L Normal 3.5 - 5.3 [facility] Comment on above: Performed By: #### C MP ####[address] [address] Protein [Mass/Vol] 6.1 g/dL Low 6.4 - 8.2 [facility] Comment on above: Performed By: #### C MP ####[address] [address] Sodium [Moles/Vol] 144 mmol/L Normal 136 - 145 [facility] Comment on above: Performed By: #### C MP ####[address] [address] Urea nitrogen [Mass/Vol] 41 mg/dL High 6 - 23 [facility] Comment on above: Performed By: #### C MP ####[address] [address] LIPASEon 04-21-2019 Lipase [Catalytic activity/Vol] 41 U/L Normal 9 - 82 [facility] Comment on above: Result Comment: Zoë puncture immediately after or during the administration of Metamizole may lead to falsely low results. Testing should be performed immediately prior to Metamizole dosing. Performed By: #### L IPAS ####[facility] [place] [address] REQUEST-LEUKOREDUCED RED KARLA LSon 04-21-2019 REQUEST-LEUKOREDUCED RED CELLS ORDER RECD Normal [facility] Comment on above: Performed By: #### O [employer] ####[facility] [place] [address] TYPE + SCREENon 04-21-2019 ABO TYPE A Normal [facility] Comment on above: Performed By: #### T +S ####[address] [place] [address] RH TYPE Positive Normal [facility] Comment on above: Performed By: #### T +S ####[address] [place] [address] ABDOMEN AP VIEWon 04-20-2019 ABDOMEN AP VIEW Patient Name: RUBEN LAI STUDY: ABDOMEN AP VIEW; 04/20/2019 7:01 am. 2 views. INDICATION: projectile vomitting. COMPARISON: None. ACCESSION NUMBER(S): [id number] ORDERING CLINICIAN: SHARLENE RODRIGUEZ FINDINGS: Bowel gas pattern is nonspecific and nonobstructive. There is a PEG tube insufflated over the proximal stomach. There is a 7 mm radiodensity in the left side of the abdomen, possibly left intrarenal calculus There are bilateral patchy infiltrates in the right upper lobe, left upper lobe and left lung base. There is obscuration of the left hemidiaphragm. Status post ORIF right mid lateral rib fractures. IMPRESSION: 1. Nonspecific, nonobstructive bowel gas pattern. 2. Bilateral patchy pneumonia. Electronically signed by: RONALDO ANDRES MD Normal [facility] FERRITINon 04-20-2019 Ferritin [Mass/Vol] 1221 ug/L High 20 - 300 [facility] Comment on above: Performed By: #### F ERRI ####[id number] [place] [address] FOLATE, SERUMon 04-20-2019 Folate [Mass/Vol] 15.1 ng/mL Normal >5.0 [facility] Comment on above: Result Comment: Sasha ents receiving more than 5 mg/day of biotin may have interference in test results. A sample should be taken no sooner than eight hours after previous dose. Contact the testing laboratory for additional information. Performed By: #### F OLA2 #### [address] [address] IRONon 04-20-2019 Iron [Mass/Vol] 14 ug/dL Low 35 - 150 [facility] Comment on above: Performed By: #### I [place] #### [address] [address] TRANSFERRINon 04-20-2019 Transferrin [Mass/Vol] 152 mg/dL Low 200 - 360 [facility] Comment on above: Performed By: #### T RANS ####[id number] [place] [address] VITAMIN B12on 04-20-2019 Cobalamin (Vitamin B12) [Mass/Vol] 1427 pg/mL High 211 - 911 [facility] Comment on above: Performed By: #### V TB12 #### [address] [address] CBCon 04-19-2019 Erythrocyte distribution width (RBC) [Ratio] 15.0 % High 11.5 - 14.5 [facility] Comment on above: Performed By: #### C BC #### [address] [address] Hematocrit (Bld) [Volume fraction] 25.4 % Low 41.0 - 52.0 [facility] Comment on above: Performed By: #### C BC #### [address] [address] Hemoglobin (Bld) [Mass/Vol] 7.7 g/dL Low 13.5 - 17.5 [facility] Comment on above: Performed By: #### C BC #### [address] [address] MCHC (RBC) [Mass/Vol] 30.3 g/dL Low 32.0 - 36.0 [facility] Comment on above: Performed By: #### C BC #### [address] [address] MCV (RBC) [Entitic vol] 98 fL Normal 80 - 100 [facility] Comment on above: Performed By: #### C BC #### [address] [address] Platelets (Bld) [#/Vol] 560 10*3/uL High 150 - 450 [facility] Comment on above: Performed By: #### C BC #### [address] [address] RBC (Bld) [#/Vol] 2.59 x10E12/L Low 4.50 - 5.90 [facility] Comment on above: Performed By: #### C BC #### [address] [address] WBC (Bld) [#/Vol] 10.4 10*3/uL Normal 4.4 - 11.3 [facility] Comment on above: Performed By: #### C BC #### [address] [address] CHEST 1 VIEWon 04-19-2019 CHEST 1 VIEW Patient Name: RUBEN LAI STUDY: CHEST 1 VIEW; 04/19/2019 5:46 am INDICATION: 227-3. History of respiratory failure multiple fractures chest. COMPARISON: None available. ACCESSION NUMBER(S): [id number] ORDERING CLINICIAN: SHARLENE RODRIGUEZ FINDINGS: CARDIOMEDIASTINAL SILHOUETTE: There is prominence of the cardiac and mediastinal silhouette as well as some aortic calcifications. Tracheostomy tube is present with tip projecting at the clavicular head levels. LUNGS: Inspiratory volume is low with bronchovascular crowding as well as bilateral perihilar infiltrates and/or atelectasis.Small pleural effusions not excluded. No appreciable pneumothorax. ABDOMEN: No remarkable upper abdominal findings. BONES: There are multiple bilateral rib fractures some of which are mildly displaced. There is plate and screw fixation hardware involving the lateral aspects of the right 4th, 5th, and 6th ribs. There is also vertically oriented plate screw fixation hardware projecting over the mediastinum just left of midline possibly related to the sternum. IMPRESSION: 1. Multiple bilateral rib fractures with varying degrees of displacement. Fixation hardware of the right 4th, 5th and 6th ribs as well as probable fixation hardware of the sternum. 2. Low inspiratory volume with bronchovascular crowding. Bilateral perihilar infiltrates and/or atelectasis. Small effusions not excluded. Electronically signed by: MARYANN HORNE MD Normal [facility] COMPREHENSIVE PANELon 2018 Albumin [Mass/Vol] 2.8 g/dL Low 3.4 - 5.0 [facility] Comment on above: Performed By: #### C MP #### [address] [address] ALP [Catalytic activity/Vol] 80 U/L Normal 33 - 136 [facility] Comment on above: Performed By: #### C MP #### [address] [address] ALT [Catalytic activity/Vol] 44 U/L Normal 10 - 52 [facility] Comment on above: Result Comment: Sasha ents treated with Sulfasalazine may generate falsely decreased results for ALT. Performed By: #### C MP #### [address] [address] Anion gap [Moles/Vol] 12 mmol/L Normal 10 - 20 [facility] Comment on above: Performed By: #### C MP #### [address] [address] AST [Catalytic activity/Vol] 64 U/L High 9 - 39 [facility] Comment on above: Performed By: #### C MP #### [address] [address] Bilirubin [Mass/Vol] 0.4 mg/dL Normal 0.0 - 1.2 [facility] Comment on above: Performed By: #### C MP #### [address] [address] Calcium [Mass/Vol] 7.8 mg/dL Low 8.6 - 10.3 [facility] Comment on above: Performed By: #### C MP #### [address] [address] Chloride [Moles/Vol] 101 mmol/L Normal 98 - 107 [facility] Comment on above: Performed By: #### C MP #### [address] [address] Creatinine [Mass/Vol] 1.30 mg/dL Normal 0.50 - 1.30 [facility] Comment on above: Performed By: #### C MP #### [address] [address] GFR- AM. 65 mL/min/1.73m2 Normal >60 [facility] Comment on above: Result Comment: CALC ULATIONS OF ESTIMATED GFR ARE PERFORMED USING THE MDRD STUDY EQUATION FOR THE IDMS-TRACEABLE CREATININE METHODS. CLIN CHEM 2007;53:766-72 Performed By: #### C MP #### [address] [address] GFR-NON AM. 54 mL/min/1.73m2 Abnormal >60 [facility] Comment on above: Performed By: #### C MP #### [address] [address] Glucose [Mass/Vol] 209 mg/dL High 74 - 99 [facility] Comment on above: Performed By: #### C MP #### [address] [address] HCO3 (Bld) [Moles/Vol] 30 mmol/L Normal 21 - 32 [facility] Comment on above: Performed By: #### C MP #### [address] [address] Potassium [Moles/Vol] 4.5 mmol/L Normal 3.5 - 5.3 [facility] Comment on above: Performed By: #### C MP #### [address] [address] Protein [Mass/Vol] 6.5 g/dL Normal 6.4 - 8.2 [facility] Comment on above: Performed By: #### C MP #### [facility] [address] [place] [address] Sodium [Moles/Vol] 138 mmol/L Normal 136 - 145 [facility] Comment on above: Performed By: #### C MP #### [address] [address] Urea nitrogen [Mass/Vol] 62 mg/dL High 6 - 23 [facility] Comment on above: Performed By: #### C MP #### [address] [address] HEMOGLOBIN A1Con 04-19-2019 HbA1c (Bld) [Mass fraction] 7.2 % Normal [facility] Comment on above: Result Comment: Diag nosis of Diabetes-Adults Non-Diabetic: < or = 5.6% Increased risk for developing diabetes: 5.7-6.4% Diagnostic of diabetes: > or = 6.5% . Monitoring of Diabetes Age (y) Therapeutic Goal (%) Adults: >18 <7.0 Pediatrics: 13-18 <7.5 7-12 <8.0 0- 6 7.5-8.5 [place] [employer]. Diabetes Care 33(S1), Aug 2009. Performed By: #### H BA1E #### [facility] [address] [place] [address] HbA1c (Bld) [Mass fraction] 160 MG/DL Normal [facility] Comment on above: Performed By: #### H BA1E #### [facility] [address] [place] [address] ARTERIAL BLOOD GASon 019 Oxygen (Bld) [Partial pressure] 65 mm[Hg] Low 85 - 95 [facility] Comment on above: Performed By: #### B LGA1 #### [address] [address] PCO2 38 mmHg Normal 38 - 42 [facility] Comment on above: Performed By: #### B LGA1 #### [address] [address] pH (Bld) 7.48 [pH] High 7.38 - 7.42 [facility] Comment on above: Performed By: #### B LGA1 #### [address] [address] RBC (Bld) [#/Vol] 28.9 mmol/L High 22.0 - 26.0 [facility] Comment on above: Performed By: #### B LGA1 #### [address] [address] SO2 94 % Normal 94 - 100 [facility] Comment on above: Performed By: #### B LGA1 #### [address] [address] RESPIRATORY CULT./SM,LOWERon 04-18-2019 RESPIRATORY CULT./SM,LOWER PATIENT: RUBEN LAI LOCATION: [facility]#: [id number] : 49 AGE: SEX: M ORDERED BY: SHARLENE RODRIGUEZ SOURCE: SPUTUM COLLECTED: 04/18/19 19:37 ANTIBIOTICS AT DANA.: RECEIVED : 04/19/19 17:48 SITE: R E S U L T S GRAM STAIN FINAL 04/19/19 21:14 GRAM STAIN INDICATES SPECIMEN CONSISTS OF LOWER RESPIRATORY TRACT SECRETIONS. NO PREDOMINANT ORGANISM. RESPIRATORY CULT./SM,LOWER FINAL 04/21/19 07:40 NORMAL THROAT RENA. Normal [facility]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
[2024-06-06] MEDS: REGADENOSON 0.4 MG/5 ML SYRINGE IV (12:37)
--- NOTE | 2024-06-06 17:28 | PM.STRESS ---
Stress Test Stress Test Allergies Allergy/AdvReac Type Severity Reaction Status Date / Time No Known Drug Allergies Allergy Verified 05/31/24 11:25 Requesting physician: GURWINDER ARTEAGA Procedure: Lexiscan Cardiolite stress test General Information: Reason for Stress Test: Dyspnea Cardiac History and Risk Factors: Patient is diabetic. Unspecified cardiovascular disease in family. Noted in chart but not on patient intake form is history of [place] and chronic diastolic CHF... Resting 12 - Lead Electrocardiogram: Rate & rhythm: Sinus bradycardia at a rate of 55. [place]: Normal T-waves: Normal ST-segments: Normal Stress Test: Protocol: Lexiscan protocol was initiated with injection of 0.4mg Lexiscan IV push followed by Cardiolite. Blood pressure: Initial: 134/68, Maximum: 152/82 Rate & rhythm: Patient remained in sinus rhythm during the exercise and recovery portions of the study.? The maximum heart rate was 73, which was 50% of the maximum predicted heart rate. ST-segments & T-waves: There were no T-wave changes and no ST-segment changes when compared to the baseline EKG. Patient response/symptoms: There were no symptoms similar to the chief complaint. Interpretation: Normal Lexiscan stress test without electrocardiographical evidence of ischemia. Asymptomatic of chief complaint. Cardiolite imaging interpretation will be reported separately. Clinical correlation required.?
== END 2024-06-06 11:15 | disposition home or self-care (01) ==
LOC: NM 11:14
PROVIDERS: PCP Internal Medicine; Visit Provider Internal Medicine
DX: N40.1 Benign prostatic hyperplasia with lower urinary tract symptoms (principal); I21.A1 Myocardial infarction type 2; I50.32 Chronic diastolic (congestive) heart failure
CPT/HCPCS: 78452; 93017; A9500; J2785

== ENCOUNTER 2024-06-14 10:55 | Day surgery (SDC) | payer MEDICARE, OTHER, SELFPAY ==
[2024-05-31 11:56] VITALS: BP 168/71; PULSE 57; TEMP 36.6; O2SAT 97; BMI 36.1
[2024-06-14] VITALS (14 sets, daily range): BP systolic 121–178; BP diastolic 50–84; PULSE 58–67; TEMP 36.2–36.7; O2SAT 81–98; BMI 36.1
--- OUTSIDE RECORDS SUMMARY | 2024-06-14 11:16 | XMS_ITS | CCD ---
Author Organization [facility] Care Team Providers Care Manufacturing Group Leader Name Role Phone DR HUGO RAMOS Attending Unavailable CHANDLER, DR PURDY Primary Care Unavailable CHANDLER, DR PURDY Admitting Unavailable HUGO RAMOS Primary Care Physician [phone] CHERELLE Ramos Primary Care Provider [phone] MD Manjeet Ng Emergency Provider [phone] Hugo Ramos MD Unavailable [phone] Hugo Ramos MD Primary Care Provider [phone] Salome Ramirez Admitting Unavailable Salome Ramirez Attending Unavailable Robert CONTRERAS Attending Unavailable CONTRERAS, Robert King Attending Unavailable CONTRERAS, Robert King Attending Unavailable COTNRERAS, Robert King Attending Unavailable SHAHANA, Robert King Attending Unavailable Salome Ramirez Attending Unavailable SHAHANA, Robert King Attending Unavailable [...] RAMOS Attending Unavailable JUSTINA RODRIGUES Attending Unavailable CHIARA ISLAS Attending Unavailable CHIARA ISLAS Referring Unavailable CHIARA ISLAS Referring Unavailable JUSTINA RODRIGUES Attending Unavailable JUSTINA RODRIGUES Attending Unavailable HUGO RAMOS Attending Unavailable MICHELLE SUMMERS Attending Unavailable PROSPER GRANT Attending Unavailable HUGO RAMOS Attending Unavailable PROSPER GRANT Attending Unavailable PROSPER GRANT A Attending Unavailable PROSPER GRANT Attending Unavailable PROSPER GRANT Attending Unavailable HUGO RAMOS Attending Unavailable HUGO RAMOS Attending Unavailable Allergies Allergy Classification Reported Allergen(s) Allergy Type Date of Onset Reaction(s) Facility (1 source) No Known Medication Allergies; Translations: [No Known Medication Allergies] Propensity to adverse reactions (disorder) [facility] Repository Medications Current Medications Medication Drug Class(es) [...] neuropathy, with long-term current use of insulin ([facility]) Take 1 tablet (25 mg) by mouth in the morning. 30 tablet 08/31/2023 08/30/2024 Active famotidine 20 mg oral [...] Discontinued 600 MG PO Twice daily 14 June 06, 2019 12:00am August 14, 2022 [...] cream (4 sources) Corticosteroid Start: 09-28-2021 [facility]ort[facility]one [facility]) 0.2 % cream 1 application 1 (one) [...] Discontinued 5 MG PO Four times daily 05 03June 06, 2019 August 14, 2022 10:45am microencapsulated [...] procedure, # 2 tab(s), Refills(s) 0, Pharmacy: [id number], 176, cm, 02/23/24 13:47:00 EDT, [...] source) Long-term current use of insulin; Translations: [FPC (current) use of insulin] Episodic Other connective [...] WITH AUTO DIFFon BASOPHILS ABSOLUTE AUTO 0 [facility] Basophils/100 WBC (Bld) 0.2 % 0.2 - 2.0 % [facility] Eosinophils/100 WBC (Bld) 4.1 % 0.9 - 7.0 % [facility] Erythrocyte distribution width (RBC) [Ratio] 14.9 % 11.0 - 15.0 % [facility] Hematocrit (Bld) [Volume fraction] 41.7 % Low 42.0 - 54.0 % [facility] Hemoglobin (Bld) [Mass/Vol] 13.3 g/dL Low 14.0 - 18.0 g/dL [facility] IMMATURE GRANULOCYTES ABS AUTO 0.03 [facility] Immature granulocytes/100 WBC (Bld) 0.4 % 0.0 - 0.5 % [facility] Interpretation and review of laboratory results Abnormal [facility] LYMPHOCYTES ABSOLUTE AUTO 1 Low [facility] Lymphocytes/100 WBC (Bld) 11.4 % Low 20.5 - 60.0 % [facility] MCH (RBC) [Entitic mass] 28 pg 25.9 - 34.0 pg [facility] MCHC (RBC) [Mass/Vol] 31.9 g/dL 29.9 - 35.2 g/dL [facility] MCV (RBC) [Entitic vol] 87.8 fL 80.0 - 94.0 fL [facility] MONOCYTES ABSOLUTE AUTO 0.6 [facility] Monocytes/100 WBC (Bld) 7.7 % 1.7 - 12.0 % [facility] NEUTROPHILS ABSOLUTE AUTO 6.4 [facility] Neutrophils/100 WBC (Bld) 76.2 % High 43.0 - 75.0 % [facility] Platelet mean volume (Bld) [Entitic vol] 11 fL 9.5 - 13.5 fL [facility] TB EO # 0.3 [facility] TB PLT 205 [facility] TB RBC 4.75 [facility] WBC 8.4 [facility] C Urineon 05-26-2024 Bacteria identified Cx Nom (U) Microbiology PROCEDURE: Urine Culture [R1] SOURCE: U CleanCatch BODY SITE: COLLECTED DATE/TIME: 05/24/2024 13:55 EDT RECEIVED DATE/TIME: 05/24/2024 18:13 EDT START DATE/TIME: 05/24/2024 18:13 EDT FREE TEXT SOURCE: Aslhey SINGLETON, Salome SINGLETON, Salome Hickey FINAL REPORTS [...] Locations R1: This test was performed at: [facility], [address] [place] [address], [id number] , [place], [facility] Comment on above: Performed By: #### 2 [id number] #### [facility] [address] [place] [address] [place] URINARY BLADDER LIMITEDon 02-03-2024 [place] URINARY BLADDER [...] Normal Not Available XR CHEST 2 VIEWSon XR CHEST 2 VIEWS Exam: XR - [...] traumatic and postoperative changes. Electronically Signed Bam Campso M.D. 2024-02-03 13:24:47 Normal Not Available Activated partial thrombopla stin time (aPTT) in platelet poor plasma by coagulation aOrdered By: Manjeet Ng on 08-14-2022 aPTT Coag (PPP) [Time] 28.5 s 25.1-36.5 [facility] Albumin [Mass/volume] in Ser um or PlasmaOrdered By: Manjeet Ng on 08-14-2022 Albumin [Mass/Vol] 3.6 g/dL 3.2-5.5 [facility] Automated erythrocytes count in urine sediment (number/area)Ordered By: Manjeet Ng on 08-14-2022 RBC Auto (Urine sed) [#/Area] None seen [HPF] 0-4 [facility] Automated leukocytes count i n urine sediment (number/area)Ordered By: Manjeet Ng on 08-14-2022 WBC Auto (Urine sed) [#/Area] None seen [HPF] 0-4 [facility] Basophils Auto (Bld) [#/Vol] Ordered By: Manjeet Ng on 08-14-2022 Basophils (Bld) [#/Vol] 0.0 10*3/uL 0.0-0.2 [facility] Basophils/100 WBC Auto (Bld) Ordered By: Manjeet Ng on 08-14-2022 Basophils/100 WBC (Bld) 0.2 % . [facility] Bilirubin Test strip Ql (U)O rdered By: Manjeet Ng on 08-14-2022 Bilirubin Ql (U) Negative Negative [facility] COVID CepheidOrdered By: Keshawn Ng on 08-14-2022 SARS-CoV-2 (COVID-19) Ab IA Ql Positive Negative [facility] Comment on above: This is a duplicate [employer] Xpert Xpress CoV-2/Flu/RSV Plus RNA by RT-PCR result to be used for statistical tracking purpose only. SARS-CoV-2 (COVID-19) RNA MUKESH+probe Ql (Unsp spec) [facility] Color Auto (U)Ordered By: Yumiko Ng on 08-14-2022 Color (U) Yellow Yellow [facility] Creatinine and Glomerular fi ltration rate.predicted panel (S/P/Bld)Ordered By: Manjeet Ng on 08-14-2022 Creatinine [Mass/Vol] 1.41 mg/dL 0.64-1.27 [facility] Eosinophils Auto (Bld) [#/Vo l]Ordered By: Manjeet Ng on 08-14-2022 Eosinophils (Bld) [#/Vol] 0.1 10*3/uL 0.0-0.45 [facility] Eosinophils/100 WBC Auto (Bl d)Ordered By: Manjeet Ng on 08-14-2022 Eosinophils/100 WBC (Bld) 1.3 % . [facility] Erythrocyte distribution wid th Auto (RBC) [Ratio]Ordered By: Manjeet Ng on 08-14-2022 Erythrocyte distribution width (RBC) [Ratio] 14.6 % 12.0-14.8 [facility] Estimated glomerular filtrat ion rate (GFR) non- AmericanOrdered By: Manjeet Ng on 08-14-2022 GFR/1.73 sq M.predicted among non-blacks MDRD (S/P/Bld) [Vol rate/Area] 49 mL/Min [facility] Globulin Calc (S) [Mass/Vol] Ordered By: Manjeet Ng on 08-14-2022 Globulin (S) [Mass/Vol] 2.8 g/dL [facility] Glucose Glucometer (BldC) [M ass/Vol]Ordered By: Manjeet Ng on 08-14-2022 Glucose [Mass/Vol] 187 mg/dL [facility] Comment on above: Random Glucose Refer ence Range is dependent on time and content of last meal. Glucose of more than 200 mg/dL in a nonstressed, ambulatory subject supports the diagnosis of Diabetes Mellitus. Hematocrit Auto (Bld) [Volum e fraction]Ordered By: Manjeet Ng on 08-14-2022 Hematocrit (Bld) [Volume fraction] 37.8 % 38.8-50.0 [facility] Hemoglobin [Mass/volume] in BloodOrdered By: Manjeet Ng on 08-14-2022 Hemoglobin (Bld) [Mass/Vol] 12.2 g/dL 13.0-17.0 [facility] Ketones Auto test strip (U) [Mass/Vol]Ordered By: Manjeet Ng on 08-14-2022 Ketones (U) [Mass/Vol] Negative Negative Fi [facility] Laboratory - Chemistry and C hemistry - challengeOrdered By: Manjeet Ng on 08-14-2022 Magnesium [Mass/Vol] 1.8 mg/dL 1.6-2.6 [facility] Natriuretic peptide B (Bld) [Mass/Vol] 142.0 pg/mL 5-100 [facility] Laboratory - CoagulationOrde red By: Manjeet Ng on 08-14-2022 PT Coag (PPP) [Time] 11.6 s 9.0-12.9 [facility] Laboratory - UrinalysisOrder ed By: Manjeet Ng on 08-14-2022 Hyaline casts LM Ql (Urine sed) 0-8 [LPF] 0-8 [facility] Leukocytes [#/volume] correc nidhi for nucleated erythrocytes in Blood by Automated counOrdered By: Manjeet Ng on 08-14-2022 WBC corrected for nucl RBC Auto (Bld) [#/Vol] 8.0 10*3/uL 4.1-10.5 [facility] Lymphocytes Auto (Bld) [#/Vo l]Ordered By: Manjeet Ng on 08-14-2022 Lymphocytes (Bld) [#/Vol] 0.7 10*3/uL 1.00-4.8 [facility] Lymphocytes/100 WBC Auto (Bl d)Ordered By: Manjeet Ng on 08-14-2022 Lymphocytes/100 WBC (Bld) 9.1 % . [facility] MCH Auto (RBC) [Entitic mass ]Ordered By: Manjeet Ng on 08-14-2022 MCH (RBC) [Entitic mass] 28.6 pg 27.5-35.2 [facility] MCHC Auto (RBC) [Mass/Vol]Or dered By: Manjeet Ng on 08-14-2022 MCHC (RBC) [Mass/Vol] 32.2 g/dL 32.5-35.6 [facility] MCV Auto (RBC) [Entitic vol] Ordered By: Manjeet Ng on 08-14-2022 MCV (RBC) [Entitic vol] 88.9 fL 83.5-101 [facility] Monocyte distribution width [Entitic volume] in Blood by AutomatedOrdered By: Manjeet Ng on 08-14-2022 Monocyte distribution width Auto (Bld) [Entitic vol] 20.88 % 0.00-20.00 [facility] Comment on above: For adults in ED, MD W > 20.0 may be associated with a higher risk of sepsis during the first 12 hrs of hospital admission Monocytes Auto (Bld) [#/Vol] Ordered By: Manjeet Ng on 08-14-2022 Monocytes (Bld) [#/Vol] 1.0 10*3/uL 0.0-0.8 [facility] Monocytes/100 WBC Auto (Bld) Ordered By: Manjeet Ng on 08-14-2022 Monocytes/100 WBC (Bld) 12.5 % . [facility] Neutrophils Auto (Bld) [#/Vo l]Ordered By: Manjeet Ng on 08-14-2022 Neutrophils (Bld) [#/Vol] 6.1 10*3/uL 1.8-7.7 [facility] Neutrophils/100 WBC Auto (Bl d)Ordered By: Manjeet Ng on 08-14-2022 Neutrophils/100 WBC (Bld) 76.9 % . [facility] Nitrite Test strip Ql (U)Ord ered By: Manjeet Ng on 08-14-2022 Nitrite Ql (U) Negative Negative [facility] No Panel InformationOrdered By: Manjeet Ng on 08-14-2022 Estimated GFR () 59 mL/Min [facility] Comment on above: GFR estimated refere nce range: According to KDOQI guidelines, <60 ml/min/1.73m2 is sufficient to diagnose a patient with chronic kidney disease. Pharmacy Creatinine Clearance (Chem 55.99 [facility] Nucleated erythrocytes [Pres ence] in Blood by Automated countOrdered By: Manjeet Ng on 08-14-2022 Nucleated RBC Auto Ql (Bld) 0.1 /100{WBC} 0-0.5 [facility] Platelet mean volume Auto (B ld) [Entitic vol]Ordered By: Manjeet Ng on 08-14-2022 Platelet mean volume (Bld) [Entitic vol] 10.5 fL 6.6-10.1 [facility] Platelet poor plasma interna tional normalized ratio (INR) by coagulation assay (relatOrdered By: Manjeet Ng on 08-14-2022 INR Coag (PPP) [Relative time] 1.0 {INR} [facility] Comment on above: INR Therapeutic Rang [...] 08-14-2022 Platelets (Bld) [#/Vol] 134 10*3/uL 150-450 [facility] Protein Auto test strip (U) [Mass/Vol]Ordered By: Manjeet Ng on 08-14-2022 Protein (U) [Mass/Vol] 30 mg/dL Negative Fi [facility] Protein [Mass/volume] in Ser um or PlasmaOrdered By: Manjeet Ng on 08-14-2022 Protein [Mass/Vol] 6.4 g/dL 6.1-7.9 [facility] RBC Auto (Bld) [#/Vol]Ordere d By: Manjeet Ng on 08-14-2022 RBC (Bld) [#/Vol] 4.26 10*6/uL 3.90-5.60 [facility] Serum or plasma alanine harden otransferase measurement without P-5'-P (enzymatic activiOrdered By: Manjeet Ng on 08-14-2022 ALT No additional P-5'-P [Catalytic activity/Vol] 26 U/L 10-60 [facility] Serum or plasma albumin/glob ulin mass ratioOrdered By: Manjeet Ng on 08-14-2022 Albumin/Globulin [Mass ratio] 1.3 {ratio} [facility] Serum or plasma alkaline hussein sphatase measurement (enzymatic activity/volume)Ordered By: Manjeet Ng on 08-14-2022 ALP [Catalytic activity/Vol] 52 U/L 32-92 [facility] Serum or plasma anion gap de terminationOrdered By: Manjeet Ng on 08-14-2022 Anion gap [Moles/Vol] 13.3 mmol/L 6.0-15.0 [facility] Serum or plasma aspartate am inotransferase measurement (enzymatic activity/volume)Ordered By: Manjeet Ng on 08-14-2022 AST [Catalytic activity/Vol] 32 U/L 10-42 [facility] Serum or plasma calcium jessenia urement (mass/volume)Ordered By: Manjeet Ng on 08-14-2022 Calcium [Mass/Vol] 8.6 mg/dL 8.2-10.2 [facility] Serum or plasma chloride kvng surement (moles/volume)Ordered By: Manjeet Ng on 08-14-2022 Chloride [Moles/Vol] 101 mmol/L 95-114 [facility] Serum or plasma glucose jessenia urement (mass/volume)Ordered By: Manjeet Ng on 08-14-2022 Glucose [Mass/Vol] 183 mg/dL 70-100 [facility] Comment on above: ADA recommended refe rence rangeRandom Glucose Reference Range is dependent on time and content of last meal. Glucose of more than 200 mg/dL in a nonstressed, ambulatory subject supports the diagnosis of Diabetes Mellitus. Serum or plasma potassium me asurement (moles/volume)Ordered By: Manjeet Ng on 08-14-2022 Potassium [Moles/Vol] 4.5 mmol/L 3.5-5.1 [facility] Serum or plasma sodium measu rement (moles/volume)Ordered By: Manjeet Ng on 08-14-2022 Sodium [Moles/Vol] 134 mmol/L 136-146 [facility] Serum or plasma total biliru bin measurement (mass/volume)Ordered By: Manjeet Ng on 08-14-2022 Bilirubin [Mass/Vol] 0.6 mg/dL 0.3-1.2 [facility] Serum or plasma total carbon dioxide measurement (moles/volume)Ordered By: Manjeet Ng on 08-14-2022 CO2 [Moles/Vol] 24.2 mmol/L 22.0-30.0 [facility] Serum or plasma urea nitroge n measurement (mass/volume)Ordered By: Manjeet Ng on 08-14-2022 Urea nitrogen [Mass/Vol] 27 mg/dL 9-23 [facility] Specific gravity Auto test s trip (U) [Rel density]Ordered By: Manjeet Ng on 08-14-2022 Specific gravity (U) [Rel density] 1.014 1.001-1.030 [facility] Squamous epithelial cells de tection in urine sediment by light microscopyOrdered By: Manjeet Ng on 08-14-2022 Epithelial cells.squamous LM Ql (Urine sed) None seen [HPF] 0-2 [facility] Troponin I.cardiac [Mass/vol ume] in Serum or Plasma by High sensitivity methodOrdered By: Manjeet Ng on 08-14-2022 Troponin I.cardiac High sensitivity method [Mass/Vol] 25 pg/mL 0-20 [facility] Urine bacteria detection by automated methodOrdered By: Manjeet Ng on 08-14-2022 Bacteria Auto Ql (U) None seen None Seen [facility] Urine clarity by refractomet ry automatedOrdered By: Manjeet Ng on 08-14-2022 Clarity Refractometry automated (U) Clear Clear [facility] Urine glucose measurement by automated test strip (mass/volume)Ordered By: Manjeet Ng on 08-14-2022 Glucose Auto test strip (U) [Mass/Vol] Normal mg/dL Normal [facility] Urine hemoglobin detection b y automated test stripOrdered By: Manjeet Ng on 08-14-2022 Hemoglobin Auto test strip Ql (U) Negative Negative [facility] Urine leukocyte esterase det ection by automated test stripOrdered By: Manjeet Ng on 08-14-2022 Leukocyte esterase Auto test strip Ql (U) Negative Negative [facility] Urobilinogen Auto test strip (U) [Mass/Vol]Ordered By: Manjeet Ng on 08-14-2022 Urobilinogen (U) [Mass/Vol] Normal mg/dL Normal [facility] WBC Auto (Bld) [#/Vol]Ordere d By: Manjeet Ng on 08-14-2022 WBC (Bld) [#/Vol] 8.0 10*3/uL 4.1-10.5 [facility] pH Auto test strip (U)Ordere d By: Manjeet Ng on 08-14-2022 pH (U) 5.0 [pH] 5.0-9.0 [facility] Microalbumin (with Creat)on 10-21-2021 mALB 5.6 mg/dL Normal [facility] Comment on above: Result Comment: mALB reference range not established. Performed By: #### m ALBC #### [facility] [address] [place], [place] [id number] mALB/Creat Ratio 81.2 MCG/MG Normal [facility] Comment on above: Result Comment: The ADA (Diabetes Care 26:S94-S98, 2003) defines abnormalities in Albumin excretion as follows: Category Result (MCG/MG Creatinine) Normal <30 Microalbuminuria 30-299 Clinical Albuminuria > or = 300 Performed By: #### m ALBC #### [facility] [address] [place], [place] [id number] UCREA 69 mg/dL Normal 39-259 [facility] Comment on above: Performed By: #### m ALBC #### [facility] [address] [place], [place] [id number] PSA SCREEN (MEDICARE)on 09-30 TPSA 1.840 ng/mL Normal <4.000 [facility] Comment on above: Result Comment: PSA Test Method: ECLIA/Baljit e 601 Performed By: #### P SA MC #### [facility] [address] [place], [place] [id number] Q - HEPATITIS C ANTIBODY W/R EFLEX TO HCV RNA,QUANT,RT-PCRon 10-21-2021 HEPATITIS C ANTIBODY Non-Reactive Normal NON-HARISH CTIV E [place] [facility] Worker Comment on above: Order Comment: [facility] performed at: [facility], [facility], [address], [address] [place], [address], Clerical Adviser: Vincenzo Wall MD [facility] Date/Time: [facility] Results Received Date/Time: [facility] Reported Date/Time: Performed By: #### 8 472 #### [facility] Default [address] [place] [address] SIGNAL TO CUT-OFF 0.07 Normal <1.00 [facility] Welfare Case Worker Comment on above: Order Comment: [facility] performed at: [facility], [facility], [address], [address] [facility], [place], [address], Clerical Adviser: Vincenzo Wall MD [facility] Date/Time: [facility] Results Received Date/Time: [facility] Reported Date/Time: Result Comment: HCV antibody was non-reactive. There is no laboratory evidence of HCV infection. In most cases, no further action is required. However, if recent HCV exposure is suspected, a test for HCV RNA (test code 73237) is suggested. For additional information please refer to http://education.[employer]/faq/JVM31n2 (This link is being provided for informational/ educational purposes only.) Performed By: #### 8 472 #### [facility] [address] [place] [address] BASIC METABOLIC PANELon 10- Anion gap [Moles/Vol] 14 mmol/L Normal 10 - 20 [facility] Comment on above: Performed By: #### H BA1E #### [facility] [address] [place] [address] Calcium [Mass/Vol] 9.2 mg/dL Normal 8.6 - 10.3 [facility] Comment on above: Performed By: #### H BA1E #### [facility] [address] [place] [address] Chloride [Moles/Vol] 102 mmol/L Normal 98 - 107 [facility] Comment on above: Performed By: #### H BA1E #### [facility] [address] [place] [address] Creatinine [Mass/Vol] 1.00 mg/dL Normal 0.50 - 1.30 [facility] Comment on above: Performed By: #### H BA1E #### [facility] [address] [place] [address] GFR- AM. >60 Normal >60 [facility] Comment on above: Result Comment: CALC ULATIONS OF ESTIMATED GFR ARE PERFORMED USING THE MDRD STUDY EQUATION FOR THE IDMS-TRACEABLE CREATININE METHODS. CLIN CHEM 2007;53:766-72 Performed By: #### H BA1E #### [facility] [address] [place] [address] GFR-NON AM. >60 Normal >60 [facility] Comment on above: Performed By: #### H BA1E #### [facility] [address] [place] [address] Glucose [Mass/Vol] 91 mg/dL Normal 74 - 99 [facility] Comment on above: Performed By: #### H BA1E #### [facility] [address] [place] [address] HCO3 (Bld) [Moles/Vol] 28 mmol/L Normal 21 - 32 [facility] Comment on above: Performed By: #### H BA1E #### [facility] [address] [place] [address] Potassium [Moles/Vol] 3.6 mmol/L Normal 3.5 - 5.3 [facility] Comment on above: Performed By: #### H BA1E #### [facility] [address] [place] [address] Sodium [Moles/Vol] 140 mmol/L Normal 136 - 145 [facility] Comment on above: Performed By: #### H BA1E #### [facility] [address] [place] [address] Urea nitrogen [Mass/Vol] 20 mg/dL Normal 6 - 23 [facility] Comment on above: Performed By: #### H BA1E #### [facility] [address] [place] [address] CBCon 05-21-2019 Erythrocyte distribution width (RBC) [Ratio] 15.6 % High 11.5 - 14.5 [facility] Comment on above: Performed By: #### H BA1E #### [facility] [address] [place] [address] Hematocrit (Bld) [Volume fraction] 29.7 % Low 41.0 - 52.0 [facility] Comment on above: Performed By: #### H BA1E #### [facility] [address] [place] [address] Hemoglobin (Bld) [Mass/Vol] 9.2 g/dL Low 13.5 - 17.5 [facility] Comment on above: Performed By: #### H BA1E #### [facility] [address] [place] [address] MCHC (RBC) [Mass/Vol] 31.0 g/dL Low 32.0 - 36.0 [facility] Comment on above: Performed By: #### H BA1E #### [facility] [address] [place] [address] MCV (RBC) [Entitic vol] 93 fL Normal 80 - 100 [facility] Comment on above: Performed By: #### H BA1E #### [facility] [address] [place] [address] Platelets (Bld) [#/Vol] 388 10*3/uL Normal 150 - 450 [facility] Comment on above: Performed By: #### H BA1E #### [facility] [address] [place] [address] RBC (Bld) [#/Vol] 3.21 x10E12/L Low 4.50 - 5.90 [facility] Comment on above: Performed By: #### H BA1E #### [facility] [address] [place] [address] WBC (Bld) [#/Vol] 9.3 10*3/uL Normal 4.4 - 11.3 [facility] Comment on above: Performed By: #### H BA1E #### [facility] [address] [place] [address] BASIC METABOLIC PANELon - Anion gap [Moles/Vol] 14 mmol/L Normal 10 - 20 [facility] Comment on above: Performed By: #### H BA1E #### [facility] [address] [place] [address] Calcium [Mass/Vol] 9.1 mg/dL Normal 8.6 - 10.3 [facility] Comment on above: Performed By: #### H BA1E #### [facility] [address] [place] [address] Chloride [Moles/Vol] 100 mmol/L Normal 98 - 107 [facility] Comment on above: Performed By: #### H BA1E #### [facility] [address] [place] [address] Creatinine [Mass/Vol] 0.90 mg/dL Normal 0.50 - 1.30 [facility] Comment on above: Performed By: #### H BA1E #### [facility] [address] [place] [address] GFR- AM. >60 Normal >60 [facility] Comment on above: Result Comment: CALC ULATIONS OF ESTIMATED GFR ARE PERFORMED USING THE MDRD STUDY EQUATION FOR THE IDMS-TRACEABLE CREATININE METHODS. CLIN CHEM 2007;53:766-72 Performed By: #### H BA1E #### [facility] [address] [place] [address] GFR-NON AM. >60 Normal >60 [facility] [facility] Comment on above: Performed By: #### H BA1E #### [facility] [address] [place] [address] Glucose [Mass/Vol] 102 mg/dL High 74 - 99 [facility] Comment on above: Performed By: #### H BA1E #### [facility] [address] [place] [address] HCO3 (Bld) [Moles/Vol] 28 mmol/L Normal 21 - 32 [facility] Comment on above: Performed By: #### H BA1E #### [facility] [address] [place] [address] Potassium [Moles/Vol] 3.8 mmol/L Normal 3.5 - 5.3 [facility] Comment on above: Performed By: #### H BA1E #### [facility] [address] [place] [address] Sodium [Moles/Vol] 138 mmol/L Normal 136 - 145 [facility] Comment on above: Performed By: #### H BA1E #### [facility] [address] [place] [address] Urea nitrogen [Mass/Vol] 23 mg/dL Normal 6 - 23 [facility] Comment on above: Performed By: #### H BA1E #### [facility] [address] [place] [address] CBCon 05-17-2019 Erythrocyte distribution width (RBC) [Ratio] 15.7 % High 11.5 - 14.5 [facility] Comment on above: Performed By: #### H BA1E #### [facility] [address] [place] [address] Hematocrit (Bld) [Volume fraction] 27.6 % Low 41.0 - 52.0 [facility] Comment on above: Performed By: #### H BA1E #### [facility] [address] [place] [address] Hemoglobin (Bld) [Mass/Vol] 8.7 g/dL Low 13.5 - 17.5 [facility] Comment on above: Performed By: #### H BA1E #### [facility] [address] [place] [address] MCHC (RBC) [Mass/Vol] 31.5 g/dL Low 32.0 - 36.0 [facility] Comment on above: Performed By: #### H BA1E #### [facility] [address] [place] [address] MCV (RBC) [Entitic vol] 92 fL Normal 80 - 100 [facility] Comment on above: Performed By: #### H BA1E #### [facility] [address] [place] [address] Platelets (Bld) [#/Vol] 352 10*3/uL Normal 150 - 450 [facility] Comment on above: Performed By: #### H BA1E #### [facility] [address] [place] [address] RBC (Bld) [#/Vol] 3.00 x10E12/L Low 4.50 - 5.90 [facility] Comment on above: Performed By: #### H BA1E #### [facility] [address] [place] [address] WBC (Bld) [#/Vol] 8.8 10*3/uL Normal 4.4 - 11.3 [facility] Comment on above: Performed By: #### H BA1E #### [facility] [address] [place] [address] DIGOXINon 05-17-2019 Digoxin [Mass/Vol] 0.90 ng/mL Normal 0.80 - 2.00 [facility] Comment on above: Performed By: #### H BA1E #### [facility] [address] [place] [address] VITAMIN D, 25-HYDROXYon 05-01 VITAMIN D, 25-HYDROXY 10 ng/mL Abnormal [facility] Comment on above: Result Comment: . DEFICIENCY: < 20 NG/ML INSUFFICIENCY: 20-29 NG/ML OPTIMUM LEVEL: 30-80 NG/ML POSSIBLE TOXICITY: > 80 NG/ML THIS ASSAY ACCURATELY QUANTIFIES THE SUM OF VITAMIN D3, 25-HYDROXY AND VIT D2,25-HYDROXY. Performed By: #### H BA1E #### [facility] [address] [place] [address] BASIC METABOLIC PANELon 05-01 Anion gap [Moles/Vol] 13 mmol/L Normal 10 - 20 [facility] Comment on above: Performed By: #### C MP #### [address] [address] Calcium [Mass/Vol] 9.1 mg/dL Normal 8.6 - 10.3 [facility] Comment on above: Performed By: #### C MP #### [address] [address] Chloride [Moles/Vol] 99 mmol/L Normal 98 - 107 [facility] Comment on above: Performed By: #### C MP #### [address] [address] Creatinine [Mass/Vol] 1.00 mg/dL Normal 0.50 - 1.30 [facility] Comment on above: Performed By: #### C MP #### [address] [address] GFR- AM. >60 Normal >60 [facility] Comment on above: Result Comment: CALC ULATIONS OF ESTIMATED GFR ARE PERFORMED USING THE MDRD STUDY EQUATION FOR THE IDMS-TRACEABLE CREATININE METHODS. CLIN CHEM 2007;53:766-72 Performed By: #### C MP #### [address] [address] GFR-NON AM. >60 Normal >60 [facility] Comment on above: Performed By: #### C MP #### [address] [address] Glucose [Mass/Vol] 117 mg/dL High 74 - 99 [facility] Comment on above: Performed By: #### C MP #### [address] [address] HCO3 (Bld) [Moles/Vol] 28 mmol/L Normal 21 - 32 [facility] Comment on above: Performed By: #### C MP #### [address] [address] Potassium [Moles/Vol] 4.0 mmol/L Normal 3.5 - 5.3 [facility] Comment on above: Performed By: #### C MP #### [address] [address] Sodium [Moles/Vol] 136 mmol/L Normal 136 - 145 [facility] Comment on above: Performed By: #### C MP #### [address] [address] Urea nitrogen [Mass/Vol] 27 mg/dL High 6 - 23 [facility] Comment on above: Performed By: #### C MP #### [address] [address] CBCon 05-16-2019 Erythrocyte distribution width (RBC) [Ratio] 15.7 % High 11.5 - 14.5 [facility] Comment on above: Performed By: #### C MP #### [address] [address] Hematocrit (Bld) [Volume fraction] 28.8 % Low 41.0 - 52.0 [facility] Comment on above: Performed By: #### C MP #### [address] [address] Hemoglobin (Bld) [Mass/Vol] 8.9 g/dL Low 13.5 - 17.5 [facility] Comment on above: Performed By: #### C MP #### [address] [address] MCHC (RBC) [Mass/Vol] 30.9 g/dL Low 32.0 - 36.0 [facility] Comment on above: Performed By: #### C MP #### [address] [address] MCV (RBC) [Entitic vol] 93 fL Normal 80 - 100 [facility] Comment on above: Performed By: #### C MP #### [address] [address] Platelets (Bld) [#/Vol] 370 10*3/uL Normal 150 - 450 [facility] Comment on above: Performed By: #### C MP #### [address] [address] RBC (Bld) [#/Vol] 3.11 x10E12/L Low 4.50 - 5.90 [facility] Comment on above: Performed By: #### C MP #### [address] [place] [address] WBC (Bld) [#/Vol] 8.9 10*3/uL Normal 4.4 - 11.3 [facility] Comment on above: Performed By: #### C #### [facility] [address] [place] [address] CT L-SPINE WO CONTRASTon CT L-SPINE WO CONTRAST Patient Name: RUBEN LAI STUDY: CT L-SPINE WO CONTRAST; 05/15/2019 2:00 pm INDICATION: fracture. Right over by tractor with multiple rib fractures and back pain. COMPARISON: None. ACCESSION NUMBER(S): [id number] ORDERING CLINICIAN: SHARLENE RODRIGUEZ TECHNIQUE: Contiguous axial [...] calculi. Electronically signed by: CHELSEA CORDOVA MD [facility] CT T-SPINE WO CONTRASTon CT T-SPINE WO [...] pm INDICATION: fracture. COMPARISON: None. ACCESSION NUMBER(S): [id number] ORDERING CLINICIAN: SHARLENE RODRIGUEZ TECHNIQUE: Contiguous axial [...] Electronically signed by: CHELSEA CORDOVA MD Normal [facility] TSHon 05-15-2019 TSH Qn 4.01 m[IU]/L High 0.44 - 3.98 [facility] Comment on above: Result Comment: TSH testing is performed using different testing methodology at [facility] than at other [facility]. Direct result comparisons should only be made within the same method. Performed By: #### C MP #### [facility] [address] [place] [address] BASIC METABOLIC PANELon 05-01 Anion gap [Moles/Vol] 14 mmol/L Normal 10 - 20 [facility] Comment on above: Performed By: #### C MP #### [facility] [address] [place] [address] Calcium [Mass/Vol] 9.2 mg/dL Normal 8.6 - 10.3 [facility] Comment on above: Performed By: #### C MP #### [address] [address] Chloride [Moles/Vol] 98 mmol/L Normal 98 - 107 [facility] Comment on above: Performed By: #### C MP #### [address] [address] Creatinine [Mass/Vol] 1.00 mg/dL Normal 0.50 - 1.30 [facility] Comment on above: Performed By: #### C MP #### [address] [address] GFR- AM. >60 Normal >60 [facility] Comment on above: Result Comment: CALC ULATIONS OF ESTIMATED GFR ARE PERFORMED USING THE MDRD STUDY EQUATION FOR THE IDMS-TRACEABLE CREATININE METHODS. CLIN CHEM 2007;53:766-72 Performed By: #### C MP #### [address] [address] GFR-NON AM. >60 Normal >60 [facility] Comment on above: Performed By: #### C MP #### [address] [address] Glucose [Mass/Vol] 95 mg/dL Normal 74 - 99 [facility] Comment on above: Performed By: #### C MP #### [address] [address] HCO3 (Bld) [Moles/Vol] 27 mmol/L Normal 21 - 32 [facility] Comment on above: Performed By: #### C MP #### [address] [address] Potassium [Moles/Vol] 3.8 mmol/L Normal 3.5 - 5.3 [facility] Comment on above: Performed By: #### C MP #### [address] [address] Sodium [Moles/Vol] 135 mmol/L Low 136 - 145 [facility] Comment on above: Performed By: #### C MP #### [address] [address] Urea nitrogen [Mass/Vol] 23 mg/dL Normal 6 - 23 [facility] Comment on above: Performed By: #### C MP #### [address] [address] CBCon 05-14-2019 Erythrocyte distribution width (RBC) [Ratio] 15.7 % High 11.5 - 14.5 [facility] Comment on above: Performed By: #### C MP #### [address] [address] Hematocrit (Bld) [Volume fraction] 28.1 % Low 41.0 - 52.0 [facility] Comment on above: Performed By: #### C MP #### [address] [address] Hemoglobin (Bld) [Mass/Vol] 8.9 g/dL Low 13.5 - 17.5 [facility] Comment on above: Performed By: #### C MP #### [address] [address] MCHC (RBC) [Mass/Vol] 31.7 g/dL Low 32.0 - 36.0 [facility] Comment on above: Performed By: #### C MP #### [address] [address] MCV (RBC) [Entitic vol] 91 fL Normal 80 - 100 [facility] Comment on above: Performed By: #### C MP #### [address] [address] Platelets (Bld) [#/Vol] 325 10*3/uL Normal 150 - 450 [facility] Comment on above: Performed By: #### C MP #### [address] [address] RBC (Bld) [#/Vol] 3.08 x10E12/L Low 4.50 - 5.90 [facility] Comment on above: Performed By: #### C MP #### [address] [place] [address] WBC (Bld) [#/Vol] 9.4 10*3/uL Normal 4.4 - 11.3 [facility] Comment on above: Performed By: #### C MP #### [facility] [address] [place] [address] GLUCOSEon 05-12-2019 Glucose [Mass/Vol] 356 mg/dL High 74 - 99 [facility] Comment on above: Performed By: #### C MP #### [facility] [address] [place] [address] BASIC METABOLIC PANELon 05-01 Anion gap [Moles/Vol] 12 mmol/L Normal 10 - 20 [facility] Comment on above: Performed By: #### B MP ####[address] [address] Calcium [Mass/Vol] 9.1 mg/dL Normal 8.6 - 10.3 [facility] Comment on above: Performed By: #### B MP ####[address] [address] Chloride [Moles/Vol] 100 mmol/L Normal 98 - 107 [facility] Comment on above: Performed By: #### B MP ####[address] [address] Creatinine [Mass/Vol] 1.00 mg/dL Normal 0.50 - 1.30 [facility] Comment on above: Performed By: #### B MP ####[address] [address] GFR- AM. >60 Normal >60 [facility] Comment on above: Result Comment: CALC ULATIONS OF ESTIMATED GFR ARE PERFORMED USING THE MDRD STUDY EQUATION FOR THE IDMS-TRACEABLE CREATININE METHODS. CLIN CHEM 2007;53:766-72 Performed By: #### B MP ####[address] [address] GFR-NON AM. >60 Normal >60 [facility] Comment on above: Performed By: #### B MP ####[facility] [address] Glucose [Mass/Vol] 210 mg/dL High 74 - 99 [facility] Comment on above: Performed By: #### B MP ####[address] [address] HCO3 (Bld) [Moles/Vol] 27 mmol/L Normal 21 - 32 [facility] Comment on above: Performed By: #### B MP ####[address] [address] Potassium [Moles/Vol] 4.1 mmol/L Normal 3.5 - 5.3 [facility] Comment on above: Performed By: #### B MP ####[address] [address] Sodium [Moles/Vol] 135 mmol/L Low 136 - 145 [facility] Comment on above: Performed By: #### B MP ####[address] [address] Urea nitrogen [Mass/Vol] 24 mg/dL High 6 - 23 [facility] Comment on above: Performed By: #### B MP ####[address] [address] CBCon 05-10-2019 Erythrocyte distribution width (RBC) [Ratio] 16.6 % High 11.5 - 14.5 [facility] Comment on above: Performed By: #### C MP #### [address] [address] Hematocrit (Bld) [Volume fraction] 29.8 % Low 41.0 - 52.0 [facility] Comment on above: Performed By: #### C MP #### [address] [address] Hemoglobin (Bld) [Mass/Vol] 9.1 g/dL Low 13.5 - 17.5 [facility] Comment on above: Performed By: #### C MP #### [address] [address] MCHC (RBC) [Mass/Vol] 30.5 g/dL Low 32.0 - 36.0 [facility] Comment on above: Performed By: #### C MP #### [address] [address] MCV (RBC) [Entitic vol] 94 fL Normal 80 - 100 [facility] Comment on above: Performed By: #### C MP #### [address] [address] Platelets (Bld) [#/Vol] 273 10*3/uL Normal 150 - 450 [facility] Comment on above: Performed By: #### C MP #### [address] [address] RBC (Bld) [#/Vol] 3.17 x10E12/L Low 4.50 - 5.90 [facility] Comment on above: Performed By: #### C MP #### [address] [address] WBC (Bld) [#/Vol] 8.4 10*3/uL Normal 4.4 - 11.3 [facility] Comment on above: Performed By: #### C MP #### [address] [address] HIP, UNILATERAL W/PELVIS WHE N PERFORMED 2-3 VIEWSon 05-09-2019 HIP, UNILATERAL W/PELVIS WHEN PERFORMED 2-3 VIEWS Patient Name: RUBEN LIA STUDY: HIP, UNILATERAL W/PELVIS WHEN PERFORMED 2-3 VIEWS;Right; 05/09/2019 11:20 am INDICATION: pain. COMPARISON: None. ACCESSION NUMBER(S): [id number] ORDERING CLINICIAN: SHARLENE RODRIGUEZ FINDINGS: Medial hip joint space narrowing. Mild enthesopathy changes in the acetabulum and the femoral head. Joint space narrowing, spurring in the symphysis pubis. No acute fractures or dislocations. IMPRESSION: No acute fractures or dislocations. Electronically signed by: LUCIA NICK MD Normal [facility] KNEE 1 OR 2 VIEWSon 05-09-20 19 KNEE 1 OR 2 VIEWS Patient Name: RUBEN LAI STUDY: KNEE; 1 OR 2 VIEWS; 05/09/2019 11:22 am INDICATION: pain. COMPARISON: None. ACCESSION NUMBER(S): [id number] ORDERING CLINICIAN: SHARLENE RODRIGUEZ TECHNIQUE: AP and [...] Electronically signed by: PRATIMA DIETRICH MD Normal [facility] BASIC METABOLIC PANELon 10-0 Anion gap [Moles/Vol] 14 mmol/L Normal 10 - 20 [facility] Comment on above: Performed By: #### B MP ####[address] [address] Calcium [Mass/Vol] 9.0 mg/dL Normal 8.6 - 10.3 [facility] Comment on above: Performed By: #### B MP ####[address] [address] Chloride [Moles/Vol] 99 mmol/L Normal 98 - 107 [facility] Comment on above: Performed By: #### B MP ####[address] [address] Creatinine [Mass/Vol] 1.10 mg/dL Normal 0.50 - 1.30 [facility] Comment on above: Performed By: #### B MP ####[address] [address] GFR- AM. >60 Normal >60 [facility] Comment on above: Result Comment: CALC ULATIONS OF ESTIMATED GFR ARE PERFORMED USING THE MDRD STUDY EQUATION FOR THE IDMS-TRACEABLE CREATININE METHODS. CLIN CHEM 2007;53:766-72 Performed By: #### B MP ####[address] [address] GFR-NON AM. >60 Normal >60 [facility] Comment on above: Performed By: #### B MP ####[address] [address] Glucose [Mass/Vol] 177 mg/dL High 74 - 99 [facility] Comment on above: Performed By: #### B MP ####[address] [address] HCO3 (Bld) [Moles/Vol] 28 mmol/L Normal 21 - 32 [facility] Comment on above: Performed By: #### B MP ####[address] [address] Potassium [Moles/Vol] 3.7 mmol/L Normal 3.5 - 5.3 [facility] Comment on above: Performed By: #### B MP ####[address] [address] Sodium [Moles/Vol] 137 mmol/L Normal 136 - 145 [facility] Comment on above: Performed By: #### B MP ####[address] [address] Urea nitrogen [Mass/Vol] 23 mg/dL Normal 6 - 23 [facility] Comment on above: Performed By: #### B MP ####[address] [address] CBCon 05-07-2019 Erythrocyte distribution width (RBC) [Ratio] 16.1 % High 11.5 - 14.5 [facility] Comment on above: Performed By: #### C BC ####[address] [address] Hematocrit (Bld) [Volume fraction] 32.4 % Low 41.0 - 52.0 [facility] Comment on above: Performed By: #### C BC ####[address] [address] Hemoglobin (Bld) [Mass/Vol] 10.0 g/dL Low 13.5 - 17.5 [facility] Comment on above: Performed By: #### C BC ####[address] [address] MCHC (RBC) [Mass/Vol] 30.9 g/dL Low 32.0 - 36.0 [facility] Comment on above: Performed By: #### C BC ####[facility] [place] [address] MCV (RBC) [Entitic vol] 94 fL Normal 80 - 100 [facility] Comment on above: Performed By: #### C BC ####[facility] [place] [address] Platelets (Bld) [#/Vol] 277 10*3/uL Normal 150 - 450 [facility] Comment on above: Performed By: #### C BC ####[facility] [place] [address] RBC (Bld) [#/Vol] 3.46 x10E12/L Low 4.50 - 5.90 [facility] Comment on above: Performed By: #### C BC ####[address] [address] WBC (Bld) [#/Vol] 9.4 10*3/uL Normal 4.4 - 11.3 [facility] Comment on above: Performed By: #### C BC ####[address] [address] CLOST DIFF. TOXIN, PCRon CLOST.DIFF.TOXIN,PCR NOT DETECTED Normal Not Detected [facility] Comment on above: Result Comment: This assay [...] 7 days. Performed By: #### C DTPC ####[facility] [place] [address] CHEST 1 VIEWon 05-04-2019 CHEST 1 VIEW Patient Name: RUBEN LAI STUDY: CHEST 1 VIEW; 05/04/2019 5:55 am INDICATION: follow up. COMPARISON: 04/19/2019 ACCESSION NUMBER(S): [id number] ORDERING CLINICIAN: EULALIA YOUNG FINDINGS: CARDIOMEDIASTINAL SILHOUETTE: [...] Electronically signed by: CHAIM ROMO MD Normal [facility] BASIC METABOLIC PANELon 10-0 Anion gap [Moles/Vol] 13 mmol/L Normal 10 - 20 [facility] Comment on above: Performed By: #### B MP ####[facility] [place] [address] Calcium [Mass/Vol] 8.8 mg/dL Normal 8.6 - 10.3 [facility] Comment on above: Performed By: #### B MP ####[facility] [place] [address] Chloride [Moles/Vol] 101 mmol/L Normal 98 - 107 [facility] Comment on above: Performed By: #### B MP ####[address] [address] Creatinine [Mass/Vol] 1.00 mg/dL Normal 0.50 - 1.30 [facility] Comment on above: Performed By: #### B MP ####[facility] [place] [address] GFR- AM. >60 Normal >60 [facility] Comment on above: Result Comment: CALC ULATIONS OF ESTIMATED GFR ARE PERFORMED USING THE MDRD STUDY EQUATION FOR THE IDMS-TRACEABLE CREATININE METHODS. CLIN CHEM 2007;53:766-72 Performed By: #### B MP ####[facility] [place] [address] GFR-NON AM. >60 Normal >60 [facility] Comment on above: Performed By: #### B MP ####[address] [address] Glucose [Mass/Vol] 150 mg/dL High 74 - 99 [facility] Comment on above: Performed By: #### B MP ####[address] [address] HCO3 (Bld) [Moles/Vol] 27 mmol/L Normal 21 - 32 [facility] Comment on above: Performed By: #### B MP ####[address] [address] Potassium [Moles/Vol] 3.9 mmol/L Normal 3.5 - 5.3 [facility] Comment on above: Performed By: #### B MP ####[address] [address] Sodium [Moles/Vol] 137 mmol/L Normal 136 - 145 [facility] Comment on above: Performed By: #### B MP ####[address] [address] Urea nitrogen [Mass/Vol] 23 mg/dL Normal 6 - 23 [facility] Comment on above: Performed By: #### B MP ####[address] [address] CBCon 05-03-2019 Erythrocyte distribution width (RBC) [Ratio] 15.6 % High 11.5 - 14.5 [facility] Comment on above: Performed By: #### C BC ####[address] [address] Hematocrit (Bld) [Volume fraction] 31.6 % Low 41.0 - 52.0 [facility] Comment on above: Performed By: #### C BC ####[address] [address] Hemoglobin (Bld) [Mass/Vol] 9.8 g/dL Low 13.5 - 17.5 [facility] Comment on above: Performed By: #### C BC ####[address] [address] MCHC (RBC) [Mass/Vol] 31.0 g/dL Low 32.0 - 36.0 [facility] Comment on above: Performed By: #### C BC ####[address] [address] MCV (RBC) [Entitic vol] 93 fL Normal 80 - 100 [facility] Comment on above: Performed By: #### C BC ####[address] [address] Platelets (Bld) [#/Vol] 264 10*3/uL Normal 150 - 450 [facility] Comment on above: Performed By: #### C BC ####[address] [address] RBC (Bld) [#/Vol] 3.39 x10E12/L Low 4.50 - 5.90 [facility] Comment on above: Performed By: #### C BC ####[address] [address] WBC (Bld) [#/Vol] 7.7 10*3/uL Normal 4.4 - 11.3 [facility] Comment on above: Performed By: #### C BC ####[address] [address] BASIC METABOLIC PANELon 09-3 Anion gap [Moles/Vol] 8 mmol/L Low 10 - 20 [facility] Comment on above: Performed By: #### B MP ####[address] [address] Calcium [Mass/Vol] 8.5 mg/dL Low 8.6 - 10.3 [facility] Comment on above: Performed By: #### B MP ####[address] [address] Chloride [Moles/Vol] 102 mmol/L Normal 98 - 107 [facility] Comment on above: Performed By: #### B MP ####[address] [address] Creatinine [Mass/Vol] 1.00 mg/dL Normal 0.50 - 1.30 [facility] Comment on above: Performed By: #### B MP ####[address] [address] GFR- AM. >60 Normal >60 [facility] Comment on above: Result Comment: CALC ULATIONS OF ESTIMATED GFR ARE PERFORMED USING THE MDRD STUDY EQUATION FOR THE IDMS-TRACEABLE CREATININE METHODS. CLIN CHEM 2007;53:766-72 Performed By: #### B MP ####[address] [address] GFR-NON AM. >60 Normal >60 [facility] Comment on above: Performed By: #### B MP ####[address] [address] Glucose [Mass/Vol] 118 mg/dL High 74 - 99 [facility] Comment on above: Performed By: #### B MP ####[address] [address] HCO3 (Bld) [Moles/Vol] 31 mmol/L Normal 21 - 32 [facility] Comment on above: Performed By: #### B MP ####[address] [address] Potassium [Moles/Vol] 3.8 mmol/L Normal 3.5 - 5.3 [facility] Comment on above: Performed By: #### B MP ####[address] [address] Sodium [Moles/Vol] 137 mmol/L Normal 136 - 145 [facility] Comment on above: Performed By: #### B MP ####[address] [address] Urea nitrogen [Mass/Vol] 24 mg/dL High 6 - 23 [facility] Comment on above: Performed By: #### B MP ####[address] [address] CBCon 04-30-2019 Erythrocyte distribution width (RBC) [Ratio] 15.5 % High 11.5 - 14.5 [facility] Comment on above: Performed By: #### C BC #### [address] [address] Hematocrit (Bld) [Volume fraction] 30.2 % Low 41.0 - 52.0 [facility] Comment on above: Performed By: #### C BC #### [address] [address] Hemoglobin (Bld) [Mass/Vol] 9.3 g/dL Low 13.5 - 17.5 [facility] Comment on above: Performed By: #### C BC #### [address] [address] MCHC (RBC) [Mass/Vol] 30.8 g/dL Low 32.0 - 36.0 [facility] Comment on above: Performed By: #### C BC #### [address] [address] MCV (RBC) [Entitic vol] 94 fL Normal 80 - 100 [facility] Comment on above: Performed By: #### C BC #### [address] [address] Platelets (Bld) [#/Vol] 273 10*3/uL Normal 150 - 450 [facility] Comment on above: Performed By: #### C BC #### [address] [address] RBC (Bld) [#/Vol] 3.20 x10E12/L Low 4.50 - 5.90 [facility] Comment on above: Performed By: #### C BC #### [address] [address] WBC (Bld) [#/Vol] 9.5 10*3/uL Normal 4.4 - 11.3 [facility] Comment on above: Performed By: #### C BC #### [address] [address] BASIC METABOLIC PANELon 04-02 Anion gap [Moles/Vol] Canceled Normal [facility] Comment on above: Order Comment: TEST BASIC METABOLIC PANEL WAS CANCELLED, 04/27/2019 22:25 TEST CANCELLED PERNURSE/DOCTOR: Tara Jimenez RN. Performed By: #### C BC #### [address] [address] Calcium [Mass/Vol] Canceled Normal [facility] Comment on above: Order Comment: TEST BASIC METABOLIC PANEL WAS CANCELLED, 04/27/2019 22:25 TEST CANCELLED PERNURSE/DOCTOR: Tara Jimenez RN. Performed By: #### C BC #### [address] [address] Chloride [Moles/Vol] Canceled Normal [facility] Comment on above: Order Comment: TEST BASIC METABOLIC PANEL WAS CANCELLED, 04/27/2019 22:25 TEST CANCELLED PERNURSE/DOCTOR: Tara Jimenez RN. Performed By: #### C BC #### [address] [address] Creatinine [Mass/Vol] Canceled Normal [facility] Comment on above: Order Comment: TEST BASIC METABOLIC PANEL WAS CANCELLED, 04/27/2019 22:25 TEST CANCELLED PERNURSE/DOCTOR: Tara Jimenez RN. Performed By: #### C BC #### [address] [address] GFR- AM. Canceled Normal [facility] Comment on above: Order Comment: TEST BASIC METABOLIC PANEL WAS CANCELLED, 04/27/2019 22:25 TEST CANCELLED PERNURSE/DOCTOR: Tara Jimenez RN. Result Comment: CALC ULATIONS OF ESTIMATED GFR ARE PERFORMED USING THE MDRD STUDY EQUATION FOR THE IDMS-TRACEABLE CREATININE METHODS. CLIN CHEM 2007;53:766-72 Performed By: #### C BC #### [address] [address] GFR-NON AM. Canceled Normal [facility] Comment on above: Order Comment: TEST BASIC METABOLIC PANEL WAS CANCELLED, 04/27/2019 22:25 TEST CANCELLED PERNURSE/DOCTOR: Tara Jimenez RN. Performed By: #### C BC #### [address] [address] Glucose [Mass/Vol] Canceled Normal [facility] Comment on above: Order Comment: TEST BASIC METABOLIC PANEL WAS CANCELLED, 04/27/2019 22:25 TEST CANCELLED PERNURSE/DOCTOR: Tara Jimenez RN. Performed By: #### C BC #### [address] [address] HCO3 (Bld) [Moles/Vol] Canceled Normal [facility] Comment on above: Order Comment: TEST BASIC METABOLIC PANEL WAS CANCELLED, 04/27/2019 22:25 TEST CANCELLED PERNURSE/DOCTOR: Tara Jimenez RN. Performed By: #### C BC #### [address] [address] Potassium [Moles/Vol] Canceled Normal [facility] Comment on above: Order Comment: TEST BASIC METABOLIC PANEL WAS CANCELLED, 04/27/2019 22:25 TEST CANCELLED PERNURSE/DOCTOR: Tara Jimenez RN. Performed By: #### C BC #### [address] [address] Sodium [Moles/Vol] Canceled Normal [facility] Comment on above: Order Comment: TEST BASIC METABOLIC PANEL WAS CANCELLED, 04/27/2019 22:25 TEST CANCELLED PERNURSE/DOCTOR: Tara Jimenez RN. Performed By: #### C BC #### [address] [address] Urea nitrogen [Mass/Vol] Canceled Normal [facility] Comment on above: Order Comment: TEST BASIC METABOLIC PANEL WAS CANCELLED, 04/27/2019 22:25 TEST CANCELLED PERNURSE/DOCTOR: Tara Jimenez RN. Performed By: #### C BC #### [address] [address] CBCon 04-28-2019 Erythrocyte distribution width (RBC) [Ratio] Canceled Normal [facility] Comment on above: Order Comment: TEST CBC WAS CANCELLED, 04/27/2019 22:25 TEST CANCELLED PER NURSE/DOCTOR:Tara Jimenez RN. Performed By: #### C BC #### [address] [address] Hematocrit (Bld) [Volume fraction] Canceled Normal [facility] Comment on above: Order Comment: TEST CBC WAS CANCELLED, 04/27/2019 22:25 TEST CANCELLED PER NURSE/DOCTOR:Tara Jimenez RN. Performed By: #### C BC #### [address] [address] Hemoglobin (Bld) [Mass/Vol] Canceled Normal [facility] Comment on above: Order Comment: TEST CBC WAS CANCELLED, 04/27/2019 22:25 TEST CANCELLED PER NURSE/DOCTOR:Tara Jimenez RN. Performed By: #### C BC #### [address] [address] MCHC (RBC) [Mass/Vol] Canceled Normal [facility] Comment on above: Order Comment: TEST CBC WAS CANCELLED, 04/27/2019 22:25 TEST CANCELLED PER NURSE/DOCTOR:Tara Jimenez RN. Performed By: #### C BC #### [address] [address] MCV (RBC) [Entitic vol] Canceled Normal [facility] Comment on above: Order Comment: TEST CBC WAS CANCELLED, 04/27/2019 22:25 TEST CANCELLED PER NURSE/DOCTOR:Tara Jimenez RN. Performed By: #### C BC #### [address] [address] Platelets (Bld) [#/Vol] Canceled Normal [facility] Comment on above: Order Comment: TEST CBC WAS CANCELLED, 04/27/2019 22:25 TEST CANCELLED PER NURSE/DOCTOR:Tara Jimenez RN. Performed By: #### C BC #### [address] [address] RBC (Bld) [#/Vol] Canceled Normal [facility] Comment on above: Order Comment: TEST CBC WAS CANCELLED, 04/27/2019 22:25 TEST CANCELLED PER NURSE/DOCTOR:Tara Jimenez RN. Performed By: #### C BC #### [address] [address] WBC (Bld) [#/Vol] Canceled Normal [facility] Comment on above: Order Comment: TEST CBC WAS CANCELLED, 04/27/2019 22:25 TEST CANCELLED PER NURSE/DOCTOR:Tara Jimenez RN. Performed By: #### C BC #### [address] [address] BASIC METABOLIC PANELon 04-02 Anion gap [Moles/Vol] 11 mmol/L Normal 10 - 20 [facility] Comment on above: Performed By: #### C BC #### [address] [address] Calcium [Mass/Vol] 8.3 mg/dL Low 8.6 - 10.3 [facility] Comment on above: Performed By: #### C BC #### [address] [address] Chloride [Moles/Vol] 103 mmol/L Normal 98 - 107 [facility] Comment on above: Performed By: #### C BC #### [address] [address] Creatinine [Mass/Vol] 1.10 mg/dL Normal 0.50 - 1.30 [facility] Comment on above: Performed By: #### C BC #### [address] [address] GFR- AM. >60 Normal >60 [facility] Comment on above: Result Comment: CALC ULATIONS OF ESTIMATED GFR ARE PERFORMED USING THE MDRD STUDY EQUATION FOR THE IDMS-TRACEABLE CREATININE METHODS. CLIN CHEM 2007;53:766-72 Performed By: #### C BC #### [address] [address] GFR-NON AM. >60 Normal >60 [facility] Comment on above: Performed By: #### C BC #### [address] [address] Glucose [Mass/Vol] 253 mg/dL High 74 - 99 [facility] Comment on above: Performed By: #### C BC #### [facility] [address] [place] [address] HCO3 (Bld) [Moles/Vol] 29 mmol/L Normal 21 - 32 [facility] Comment on above: Performed By: #### C BC #### [address] [address] Potassium [Moles/Vol] 4.2 mmol/L Normal 3.5 - 5.3 [facility] Comment on above: Performed By: #### C BC #### [address] [address] Sodium [Moles/Vol] 139 mmol/L Normal 136 - 145 [facility] Comment on above: Performed By: #### C BC #### [address] [address] Urea nitrogen [Mass/Vol] 24 mg/dL High 6 - 23 [facility] Comment on above: Performed By: #### C BC #### [address] [address] CBCon 04-27-2019 Erythrocyte distribution width (RBC) [Ratio] 15.7 % High 11.5 - 14.5 [facility] Comment on above: Performed By: #### C BC #### [address] [address] Hematocrit (Bld) [Volume fraction] 31.3 % Low 41.0 - 52.0 [facility] Comment on above: Performed By: #### C BC #### [address] [address] Hemoglobin (Bld) [Mass/Vol] 9.3 g/dL Low 13.5 - 17.5 [facility] Comment on above: Performed By: #### C BC #### [address] [address] MCHC (RBC) [Mass/Vol] 29.7 g/dL Low 32.0 - 36.0 [facility] Comment on above: Performed By: #### C BC #### [address] [address] MCV (RBC) [Entitic vol] 95 fL Normal 80 - 100 [facility] Comment on above: Performed By: #### C BC #### [address] [address] Platelets (Bld) [#/Vol] 346 10*3/uL Normal 150 - 450 [facility] Comment on above: Performed By: #### C BC #### [address] [address] RBC (Bld) [#/Vol] 3.31 x10E12/L Low 4.50 - 5.90 [facility] Comment on above: Performed By: #### C BC #### [address] [address] WBC (Bld) [#/Vol] 9.6 10*3/uL Normal 4.4 - 11.3 [facility] Comment on above: Performed By: #### C BC #### [address] [address] BASIC METABOLIC PANELon 04-02 Anion gap [Moles/Vol] 12 mmol/L Normal 10 - 20 [facility] Comment on above: Performed By: #### C BC #### [address] [address] Calcium [Mass/Vol] 7.7 mg/dL Low 8.6 - 10.3 [facility] Comment on above: Performed By: #### C BC #### [address] [address] Chloride [Moles/Vol] 105 mmol/L Normal 98 - 107 [facility] Comment on above: Performed By: #### C BC #### [address] [address] Creatinine [Mass/Vol] 1.10 mg/dL Normal 0.50 - 1.30 [facility] Comment on above: Performed By: #### C BC #### [address] [address] GFR- AM. >60 Normal >60 [facility] Comment on above: Result Comment: CALC ULATIONS OF ESTIMATED GFR ARE PERFORMED USING THE MDRD STUDY EQUATION FOR THE IDMS-TRACEABLE CREATININE METHODS. CLIN CHEM 2007;53:766-72 Performed By: #### C BC #### [address] [address] GFR-NON AM. >60 Normal >60 [facility] Comment on above: Performed By: #### C BC #### [address] [address] Glucose [Mass/Vol] 127 mg/dL High 74 - 99 [facility] Comment on above: Performed By: #### C BC #### [address] [address] HCO3 (Bld) [Moles/Vol] 31 mmol/L Normal 21 - 32 [facility] Comment on above: Performed By: #### C BC #### [address] [address] Potassium [Moles/Vol] 4.4 mmol/L Normal 3.5 - 5.3 [facility] Comment on above: Performed By: #### C BC #### [address] [address] Sodium [Moles/Vol] 144 mmol/L Normal 136 - 145 [facility] Comment on above: Performed By: #### C BC #### [address] [address] Urea nitrogen [Mass/Vol] 31 mg/dL High 6 - 23 [facility] Comment on above: Performed By: #### C BC #### [address] [address] BNPon 04-23-2019 Natriuretic peptide B (Bld) [Mass/Vol] 188 pg/mL High 0 - 99 [facility] Comment on above: Result Comment: . <1 00 pg/mL - Heart failure unlikely 100-299 pg/mL - Intermediate probability of acute heart . failure exacerbation. Correlate with clinical . context and patient history. >=300 pg/mL - Heart Failure likely. Correlate with clinical . context and patient history. BNP testing is performed using different testing methodology at [facility] than at other [facility]. Direct result comparisons should only be made within the same method. Performed By: #### C BC #### [address] [address] CBCon 04-23-2019 Erythrocyte distribution width (RBC) [Ratio] 17.0 % High 11.5 - 14.5 [facility] Comment on above: Performed By: #### C BC #### [address] [address] Hematocrit (Bld) [Volume fraction] 29.1 % Low 41.0 - 52.0 [facility] Comment on above: Performed By: #### C BC #### [address] [address] Hemoglobin (Bld) [Mass/Vol] 8.6 g/dL Low 13.5 - 17.5 [facility] Comment on above: Performed By: #### C BC #### [address] [address] MCHC (RBC) [Mass/Vol] 29.6 g/dL Low 32.0 - 36.0 [facility] Comment on above: Performed By: #### C BC #### [address] [address] MCV (RBC) [Entitic vol] 97 fL Normal 80 - 100 [facility] Comment on above: Performed By: #### C BC #### [address] [address] Platelets (Bld) [#/Vol] 454 10*3/uL High 150 - 450 [facility] Comment on above: Performed By: #### C BC #### [address] [address] RBC (Bld) [#/Vol] 3.00 x10E12/L Low 4.50 - 5.90 [facility] Comment on above: Performed By: #### C BC #### [address] [address] WBC (Bld) [#/Vol] 8.5 10*3/uL Normal 4.4 - 11.3 [facility] Comment on above: Performed By: #### C BC #### [address] [address] FECAL OCCULT BLD IMMUNOASSAY on 04-23-2019 FECAL OCCULT BLD IMMUNOASSAY Negative Normal Negative [facility] Comment on above: Result Comment: This test [...] date. Performed By: #### C BC #### [address] [address] MAGNESIUMon 04-23-2019 Magnesium [Mass/Vol] 2.40 mg/dL Normal 1.60 - 2.40 [facility] Comment on above: Performed By: #### C BC #### [address] [address] ABO/RH GROUP TESTon 04-21-20 19 ABO TYPE A Normal [facility] Comment on above: Performed By: #### V ERAB ####[address] [place] [address] RH TYPE Positive Normal [facility] Comment on above: Performed By: #### V ERAB ####[address] [place] [address] AMYLASEon 04-21-2019 Amylase [Catalytic activity/Vol] 16 U/L Low 29 - 103 [facility] Comment on above: Performed By: #### A MY ####[address] [address] CBCon 04-21-2019 Erythrocyte distribution width (RBC) [Ratio] 15.1 % High 11.5 - 14.5 [facility] Comment on above: Performed By: #### C BC ####[address] [address] Hematocrit (Bld) [Volume fraction] 23.9 % Low 41.0 - 52.0 [facility] Comment on above: Performed By: #### C BC ####[address] [address] Hemoglobin (Bld) [Mass/Vol] 7.1 g/dL Low 13.5 - 17.5 [facility] Comment on above: Performed By: #### C BC ####[address] [address] MCHC (RBC) [Mass/Vol] 29.7 g/dL Low 32.0 - 36.0 [facility] Comment on above: Performed By: #### C BC ####[address] [address] MCV (RBC) [Entitic vol] 99 fL Normal 80 - 100 [facility] Comment on above: Performed By: #### C BC ####[address] [address] Platelets (Bld) [#/Vol] 481 10*3/uL High 150 - 450 [facility] Comment on above: Performed By: #### C BC ####[address] [address] RBC (Bld) [#/Vol] 2.42 x10E12/L Low 4.50 - 5.90 [facility] Comment on above: Performed By: #### C BC ####[address] [address] WBC (Bld) [#/Vol] 9.4 10*3/uL Normal 4.4 - 11.3 [facility] Comment on above: Performed By: #### C BC ####[address] [address] COMPREHENSIVE PANELon 2018 Albumin [Mass/Vol] 2.6 g/dL Low 3.4 - 5.0 [facility] Comment on above: Performed By: #### C MP ####[address] [address] ALP [Catalytic activity/Vol] 70 U/L Normal 33 - 136 [facility] Comment on above: Performed By: #### C MP ####[address] [address] ALT [Catalytic activity/Vol] 48 U/L Normal 10 - 52 [facility] Comment on above: Result Comment: Sasha ents treated with Sulfasalazine may generate falsely decreased results for ALT. Performed By: #### C MP ####[address] [address] Anion gap [Moles/Vol] 10 mmol/L Normal 10 - 20 [facility] Comment on above: Performed By: #### C MP ####[address] [address] AST [Catalytic activity/Vol] 68 U/L High 9 - 39 [facility] Comment on above: Performed By: #### C MP ####[address] [address] Bilirubin [Mass/Vol] 0.4 mg/dL Normal 0.0 - 1.2 [facility] Comment on above: Performed By: #### C MP ####[address] [address] Calcium [Mass/Vol] 7.7 mg/dL Low 8.6 - 10.3 [facility] Comment on above: Performed By: #### C MP ####[address] [address] Chloride [Moles/Vol] 104 mmol/L Normal 98 - 107 [facility] Comment on above: Performed By: #### C MP ####[address] [address] Creatinine [Mass/Vol] 1.20 mg/dL Normal 0.50 - 1.30 [facility] Comment on above: Performed By: #### C MP ####[address] [address] GFR- AM. 73 mL/min/1.73m2 Normal >60 [facility] Comment on above: Result Comment: CALC ULATIONS OF ESTIMATED GFR ARE PERFORMED USING THE MDRD STUDY EQUATION FOR THE IDMS-TRACEABLE CREATININE METHODS. CLIN CHEM 2007;53:766-72 Performed By: #### C MP ####[address] [address] GFR-NON AM. 60 mL/min/1.73m2 Abnormal >60 [facility] Comment on above: Performed By: #### C MP ####[address] [address] Glucose [Mass/Vol] 162 mg/dL High 74 - 99 [facility] Comment on above: Performed By: #### C MP ####[address] [address] HCO3 (Bld) [Moles/Vol] 34 mmol/L High 21 - 32 [facility] Comment on above: Performed By: #### C MP ####[address] [address] Potassium [Moles/Vol] 4.2 mmol/L Normal 3.5 - 5.3 [facility] Comment on above: Performed By: #### C MP ####[address] [address] Protein [Mass/Vol] 6.1 g/dL Low 6.4 - 8.2 [facility] Comment on above: Performed By: #### C MP ####[address] [address] Sodium [Moles/Vol] 144 mmol/L Normal 136 - 145 [facility] Comment on above: Performed By: #### C MP ####[address] [address] Urea nitrogen [Mass/Vol] 41 mg/dL High 6 - 23 [facility] Comment on above: Performed By: #### C MP ####[address] [address] LIPASEon 04-21-2019 Lipase [Catalytic activity/Vol] 41 U/L Normal 9 - 82 [facility] Comment on above: Result Comment: Zoë puncture immediately after or during the administration of Metamizole may lead to falsely low results. Testing should be performed immediately prior to Metamizole dosing. Performed By: #### L IPAS ####[facility] [place] [address] REQUEST-LEUKOREDUCED RED KARLA LSon 04-21-2019 REQUEST-LEUKOREDUCED RED CELLS ORDER RECD Normal [facility] Comment on above: Performed By: #### O GREEN WARE CASTER ####[facility] [place] [address] TYPE + SCREENon 04-21-2019 ABO TYPE A Normal [facility] Comment on above: Performed By: #### T +S ####[facility] [place] [address] RH TYPE Positive Normal [facility] Comment on above: Performed By: #### T +S ####[facility] [place] [address] ABDOMEN AP VIEWon 04-20-2019 ABDOMEN AP VIEW Patient Name: RUBEN LAI STUDY: ABDOMEN AP VIEW; 04/20/2019 7:01 am. 2 views. INDICATION: projectile vomitting. COMPARISON: None. ACCESSION NUMBER(S): [id number] ORDERING CLINICIAN: SHARLENE RODRIGUEZ FINDINGS: Bowel gas [...] Electronically signed by: RONALDO ANDRES MD Normal [facility] FERRITINon 04-20-2019 Ferritin [Mass/Vol] 1221 ug/L High 20 - 300 [facility] Comment on above: Performed By: #### F ERRI ####[id number] [place] [address] FOLATE, SERUMon 04-20-2019 Folate [Mass/Vol] 15.1 ng/mL Normal >5.0 [facility] Comment on above: Result Comment: Sasha ents receiving more than 5 mg/day of biotin may have interference in test results. A sample should be taken no sooner than eight hours after previous dose. Contact the testing laboratory for additional information. Performed By: #### F OLA2 #### [address] [address] IRONon 04-20-2019 Iron [Mass/Vol] 14 ug/dL Low 35 - 150 [facility] Comment on above: Performed By: #### I [place] #### [address] [address] TRANSFERRINon 04-20-2019 Transferrin [Mass/Vol] 152 mg/dL Low 200 - 360 [facility] Comment on above: Performed By: #### T RANS ####[id number] [place] [address] VITAMIN B12on 04-20-2019 Cobalamin (Vitamin B12) [Mass/Vol] 1427 pg/mL High 211 - 911 [facility] Comment on above: Performed By: #### V TB12 #### [address] [address] CBCon 04-19-2019 Erythrocyte distribution width (RBC) [Ratio] 15.0 % High 11.5 - 14.5 [facility] Comment on above: Performed By: #### C BC #### [address] [address] Hematocrit (Bld) [Volume fraction] 25.4 % Low 41.0 - 52.0 [facility] Comment on above: Performed By: #### C BC #### [address] [address] Hemoglobin (Bld) [Mass/Vol] 7.7 g/dL Low 13.5 - 17.5 [facility] Comment on above: Performed By: #### C BC #### [address] [address] MCHC (RBC) [Mass/Vol] 30.3 g/dL Low 32.0 - 36.0 [facility] Comment on above: Performed By: #### C BC #### [address] [address] MCV (RBC) [Entitic vol] 98 fL Normal 80 - 100 [facility] Comment on above: Performed By: #### C BC #### [address] [address] Platelets (Bld) [#/Vol] 560 10*3/uL High 150 - 450 [facility] Comment on above: Performed By: #### C BC #### [address] [address] RBC (Bld) [#/Vol] 2.59 x10E12/L Low 4.50 - 5.90 [facility] Comment on above: Performed By: #### C BC #### [address] [address] WBC (Bld) [#/Vol] 10.4 10*3/uL Normal 4.4 - 11.3 [facility] Comment on above: Performed By: #### C BC #### [address] [address] CHEST 1 VIEWon 04-19-2019 CHEST 1 VIEW Patient Name: RUBEN LAI STUDY: CHEST 1 VIEW; 04/19/2019 5:46 am INDICATION: [id number]. History of respiratory failure multiple fractures chest. COMPARISON: None available. ACCESSION NUMBER(S): [id number] ORDERING CLINICIAN: SHARLENE RODRIGUEZ FINDINGS: CARDIOMEDIASTINAL SILHOUETTE: [...] Electronically signed by: MARYANN HORNE MD Normal [facility] COMPREHENSIVE PANELon 2018 Albumin [Mass/Vol] 2.8 g/dL Low 3.4 - 5.0 [facility] Comment on above: Performed By: #### C MP #### [address] [address] ALP [Catalytic activity/Vol] 80 U/L Normal 33 - 136 [facility] Comment on above: Performed By: #### C MP #### [address] [address] ALT [Catalytic activity/Vol] 44 U/L Normal 10 - 52 [facility] Comment on above: Result Comment: Sasha ents treated with Sulfasalazine may generate falsely decreased results for ALT. Performed By: #### C MP #### [address] [address] Anion gap [Moles/Vol] 12 mmol/L Normal 10 - 20 [facility] Comment on above: Performed By: #### C MP #### [address] [address] AST [Catalytic activity/Vol] 64 U/L High 9 - 39 [facility] Comment on above: Performed By: #### C MP #### [address] [address] Bilirubin [Mass/Vol] 0.4 mg/dL Normal 0.0 - 1.2 [facility] Comment on above: Performed By: #### C MP #### [address] [address] Calcium [Mass/Vol] 7.8 mg/dL Low 8.6 - 10.3 [facility] Comment on above: Performed By: #### C MP #### [address] [address] Chloride [Moles/Vol] 101 mmol/L Normal 98 - 107 [facility] Comment on above: Performed By: #### C MP #### [address] [address] Creatinine [Mass/Vol] 1.30 mg/dL Normal 0.50 - 1.30 [facility] Comment on above: Performed By: #### C MP #### [address] [address] GFR- AM. 65 mL/min/1.73m2 Normal >60 [facility] Comment on above: Result Comment: CALC ULATIONS OF ESTIMATED GFR ARE PERFORMED USING THE MDRD STUDY EQUATION FOR THE IDMS-TRACEABLE CREATININE METHODS. CLIN CHEM 2007;53:766-72 Performed By: #### C MP #### [address] [address] GFR-NON AM. 54 mL/min/1.73m2 Abnormal >60 [facility] Comment on above: Performed By: #### C MP #### [address] [address] Glucose [Mass/Vol] 209 mg/dL High 74 - 99 [facility] Comment on above: Performed By: #### C MP #### [address] [address] HCO3 (Bld) [Moles/Vol] 30 mmol/L Normal 21 - 32 [facility] Comment on above: Performed By: #### C MP #### [address] [address] Potassium [Moles/Vol] 4.5 mmol/L Normal 3.5 - 5.3 [facility] Comment on above: Performed By: #### C MP #### [address] [address] Protein [Mass/Vol] 6.5 g/dL Normal 6.4 - 8.2 [facility] Comment on above: Performed By: #### C MP #### [address] [address] Sodium [Moles/Vol] 138 mmol/L Normal 136 - 145 [facility] Comment on above: Performed By: #### C MP #### [address] [address] Urea nitrogen [Mass/Vol] 62 mg/dL High 6 - 23 [facility] Comment on above: Performed By: #### C MP #### [address] [address] HEMOGLOBIN A1Con 04-19-2019 HbA1c (Bld) [Mass fraction] 7.2 % Normal [facility] Comment on above: Result Comment: Diag nosis of Diabetes-Adults Non-Diabetic: < or = 5.6% Increased risk for developing diabetes: 5.7-6.4% Diagnostic of diabetes: > or = 6.5% . Monitoring of Diabetes Age (y) Therapeutic Goal (%) Adults: >18 <7.0 Pediatrics: 13-18 <7.5 7-12 <8.0 0- 6 7.5-8.5 [employer]. Diabetes Care 33(S1), Aug 2009. Performed By: #### H BA1E #### [facility] [address] [place] [address] HbA1c (Bld) [Mass fraction] 160 MG/DL Normal [facility] Comment on above: Performed By: #### H BA1E #### [facility] [address] [place] [address] ARTERIAL BLOOD GASon 019 Oxygen (Bld) [Partial pressure] 65 mm[Hg] Low 85 - 95 [facility] Comment on above: Performed By: #### B LGA1 #### [address] [address] PCO2 38 mmHg Normal 38 - 42 [facility] Comment on above: Performed By: #### B LGA1 #### [address] [address] pH (Bld) 7.48 [pH] High 7.38 - 7.42 [facility] Comment on above: Performed By: #### B LGA1 #### [address] [address] RBC (Bld) [#/Vol] 28.9 mmol/L High 22.0 - 26.0 [facility] Comment on above: Performed By: #### B LGA1 #### [address] [address] SO2 94 % Normal 94 - 100 [facility] Comment on above: Performed By: #### B LGA1 #### [address] [address] RESPIRATORY CULT./SM,LOWERon 04-18-2019 RESPIRATORY CULT./SM,LOWER PATIENT: RUBEN LAI LOCATION: [facility]#: [id number] : 49 AGE: SEX: M ORDERED BY: SHARLENE RODRIGUEZ SOURCE: SPUTUM COLLECTED: 04/18/19 19:37 ANTIBIOTICS AT DANA.: RECEIVED : 04/19/19 17:48 SITE: R E S U L T S GRAM STAIN FINAL 04/19/19 21:14 GRAM STAIN INDICATES SPECIMEN CONSISTS OF LOWER RESPIRATORY TRACT SECRETIONS. NO PREDOMINANT ORGANISM. RESPIRATORY CULT./SM,LOWER FINAL 04/21/19 07:40 NORMAL THROAT RENA. Normal [facility] Comment on above: Performed By: #### R ESPL ####[id number] [place] [address] Vital Signs Date Time Vital Sign Value Performing Clinician Faci lity 06-04-2024 13:31050 Body height 172.7 cm Hugo Ramos MD Work Phone: [facility] 06-04-2024 13:31050 Body mass index (BMI) [Ratio] 37.4 kg/m2 Hugo Ramos MD Work Phone: [facility] 06-04-2024 13:31050 Body weight 111.58 kg Hugo Ramos MD Work Phone: [facility] 06-04-2024 13:31-0500 Diastolic blood pressure 82 mm[Hg] Hugo Ramos MD Work Phone: [facility] 06-04-2024 13:31-0500 Heart rate 57 /min Hugo Ramos MD Work Phone: [facility] 06-04-2024 13:31-0500 SaO2% (BldA) [Mass fraction] 95 % Hugo Ramos MD Work Phone: [facility] 06-04-2024 13:31-0500 Systolic blood pressure 134 mm[Hg] Hugo Ramos MD Work Phone: [facility] 02-23-2024 13:40-0400 Blood Pressure Location Salome Galea [facility] 02-23-2024 13:40-0400 Diastolic blood pressure 78 mm[Hg] Salome Galea [facility] 02-23-2024 13:40-0400 Heart rate 80 /min Salome Galea [facility] 02-23-2024 13:40-0400 Respiratory rate 16 /min Salome Galea [facility] 02-23-2024 13:40-0400 Systolic blood pressure 132 mm[Hg] Salome Galea [facility] 08-14-2022 12:53-0500 Diastolic blood pressure 67 mm[Hg] II Hugo Ramos Work Phone: [facility] 08-14-2022 12:53-0500 Heart rate 58 /min II Hugo Ramos Work Phone: [facility] 08-14-2022 12:53-0500 Respiratory rate 18 /min II Hugo Ramos Work Phone: [facility] 08-14-2022 12:53-0500 SaO2% (BldA) [Mass fraction] 97 % II Hugo Ramos Work Phone: [facility] 08-14-2022 12:53-0500 Systolic blood pressure 154 mm[Hg] II Hugo Ramos Work Phone: [facility] 08-14-2022 09:46-0500 Body height 172.72 cm II Hugo Ramos Work Phone: [facility] 08-14-2022 09:46-0500 Body weight 112.7 kg II Hugo Ramos Work Phone: [facility] 08-14-2022 09:45-0500 Body temperature 99 [degF] II Hugo Ramos Work Phone: [facility] 05-14-2019 16:18-0400 Body weight [facility] 04-18-2019 19:05-0400 Body weight [facility] Encounters Encounter Date Encounter Type Care Provider Facility Start: 06-11-2024 End: 06-11-2024 ambulatory HUGO RAMOS Not Available Start: 06-04-2024 End: 06-04-2024 Office outpatient visit 25 minutes Hugo Ramos MD Work Phone: [facility] Comment on above: Benign localized pro static hyperplasia with lower urinary tract symptoms (LUTS) (Primary Dx); Benign essential hypertension (CMS/HCC); Type 2 UT (myocardial infarction) (CMS/HCC); Chronic diastolic heart failure [...] External Department Unsolicited Start: 05-24-2024 End: 05-24-2024 Shari Grant DPM Work Phone: [facility] Start: 05-24-2024 End: 05-24-2024 Shari h[place]heet Prosper Grant DPM Work Phone: [facility] Start: 05-24-2024 End: 05-24-2024 Lab Drop off Salome J Galea [facility] Start: 05-24-2024 End: 05-24-2024 ambulatory Salome J Galea [facility] Start: 05-24-2024 End: 05-24-2024 Patient encounter procedure Robert CONTRERAS [facility] Start: 05-24-2024 End: 05-24-2024 ambulatory PROSPER GRANT Not Available Start: 04-24-2024 End: 04-24-2024 ambulatory Robert CONTRERAS Facility[place] Start: 04-24-2024 End: 04-24-2024 Patient encounter procedure Robert CONTRERAS [facility] Start: 04-12-2024 End: 04-12-2024 ambulatory PROSPER GRANT Not Available Start: 03-29-2024 End: 03-29-2024 ambulatory PROSPER GRANT Not Available Start: 03-22-2024 End: 03-22-2024 ambulatory PROSPER GRANT Not Available Start: 03-15-2024 End: 03-15-2024 ambulatory HUGO RAMOS Not Available Start: 03-12-2024 End: 03-12-2024 ambulatory Robert CONTRERAS Facility:CD:[id number] Start: 02-23-2024 End: 02-23-2024 ambulatory Salome J Galea Facility:[facility] Start: 02-23-2024 End: 02-23-2024 Patient encounter procedure Salome J Galea [facility] Start: 02-09-2024 End: 02-09-2024 ambulatory JUSTINA RODRIGUES Not Available Start: 02-07-2024 ambulatory Salome Ramirez Facility:[facility] Start: 02-03-2024 End: 02-03-2024 ambulatory CHIARA Pandey HEMMER Not Available Start: 01-30-2024 End: 01-30-2024 ambulatory CHIARA Pandey HEMMER Not Available Start: 12-29-2023 End: 12-29-2023 ambulatory JUSTINA Pandey MARCO [place]IO Not Available Start: 12-14-2023 End: 12-14-2023 ambulatory HUGO B RAMOS Not Available Start: 12-08-2023 End: 12-08-2023 ambulatory PROSPER A BROWN Not Available Start: 11-17-2023 End: 11-17-2023 ambulatory JUSTINA M MARCO [place]IO Not Available Start: 10-13-2023 End: 10-13-2023 ambulatory HUGO B RAMOS Not Available Start: 09-08-2023 End: 09-08-2023 ambulatory PROSPER A BROWN Not Available Start: 08-31-2023 End: 08-31-2023 ambulatory HUGO B RAMOS Not Available Start: 07-21-2023 End: 07-21-2023 ambulatory MICHELLE SUMMERS Not Available Start: 07-14-2023 End: 07-14-2023 ambulatory HUGO B RAMOS Not Available Start: 07-11-2023 End: 07-11-2023 ambulatory JUSTINA M MARCO [place]IO Not Available Start: 06-30-2023 End: 06-30-2023 ambulatory JUSTINA Pandey MARCO [place]IO Not Available Start: 06-30-2023 End: 06-30-2023 ambulatory PROSPER A BROWN Not Available Start: 06-16-2023 End: 06-16-2023 ambulatory HUGO B RAMOS Not Available Start: 08-14-2022 End: 08-14-2022 Emergency department patient visit II Hugo Ramos Work Phone: [facility] Work Phone: Start: 02-19-2022 End: 03-16-[address] HUGO RAMOS Facility: Start: 12-31-2021 End: 07-19-2022 Recurring HUGO RAMOS [facility] Procedures Date Procedure Procedure Detail Performing Clinician Start: 05-31-2024 ALL CBC WITH AUTO DIFF Generic External Data Provider Start: 08-14-2022 SARS-CoV-2, Influenz a & RSV (PCR) II Hugo Ramos Work Phone: Start: 08-14-2022 Plain chest X-ray II Da nino Ramos Work Phone: Start: 04-21-2019 Antibody screen Comment on above: Performed By: #### T +S ####[address] [address] [facility] (body structure) Salome Ramirez Tonsillectomy Salome Ramirez Plan of Treatment Date Care Activity Detail Author Start: 02-08-2025 Glaucoma screening Diabetes: R etinopathy Screening [facility] Start: 12-04-2024 Urine screening for protein Diabetes: Urine Protein Screening [facility] Start: 08-09-2024 End: 08-09-2024 Patient encounter procedure 08/09/2024 9:30 AM EST Office Visit [facility] [address] [place] [address] Justina Rodrigues MD [address] [place] [address] [facility] Start: 08-02-2024 End: 08-02-2024 Patient encounter procedure 08/02/2024 10:00 AM EST Office Visit [facility] [address] [facility] [address] [place] [address] Prosper Grant DPM [address] [facility] [address] [place] [address] [facility] Start: 07-06-2024 ambulatory Ambulatory Facility:[facility] Start: 06-18-2024 ambulatory Ambulatory Facility:[facility] Start: 06-15-2024 Hemoglobin A1c measurement Diabetes: Hemoglobin A1C [facility] Start: 06-14-2024 ambulatory Ambulatory Facility:C [id number] Start: 06-11-2024 End: 06-11-2024 Patient encounter procedure 06/11/2024 10:45 AM EST Office Visit [facility] [address] [facility] [address] [place] [address] Hugo Ramos MD [address] [facility] [address] [place] [address] [facility] Start: 06-04-2024 End: 06-04-2026 NM Heart Perfusion W adenosine and W radionuclide IV STRESS NUCLEAR MEDICINE [facility] Cardiac Nuclear Medicine Routine Benign localized prostatic hyperplasia with lower urinary tract symptoms (LUTS) Type 2 UT (myocardial infarction) (CMS/HCC) Chronic diastolic heart failure (CMS/HCC) Expected: 06/04/2024 (Approximate), Expires: 06/04/2026 [facility] Work Phone: Comment on above: Expected: 06/04/2024 (Approximate), Expires: 06/04/2026 Start: 06-04-2024 End: 06-04-2024 Patient encounter procedure 06/04/2024 1:30 PM EST Office Visit [facility] [address] [facility] [address] [place] [id number] Hugo Ramos MD [address] [facility] [address] [place] [address] [facility] Start: 05-24-2024 End: 05-24-2024 Patient encounter procedure 05/24/2024 9:40 AM EDT Office Visit [facility] [address] [facility] [address] [place] [address] Prosper Grant, SAJAN [address] [facility] [address] [place] [address] Type 2 diabetes mellitus with diabetic neuropathy, with long-term current use of insulin ([facility]) (Primary Dx); Pain due to onychomycosis of toenails of both feet; Acquired deformity of right toe [facility] Comment on above: Type 2 diabetes pauline itus with diabetic neuropathy, with long- term current use of insulin ([facility]) (Primary Dx); Pain due to onychomycosis of toenails of both feet; Acquired deformity of right toe Start: 04-01-2024 Influenza vaccination Influenza Vacc ine (#1) [facility] Patient Education [facility] ED/OP COV ID-19 Discharge Instructions [facility] Work Phone: Patient referral [facility] Work Phone: Immunizations Immunization Date Immunization Notes Care Provider Jake goddard 06-22-2021 influenza, high dose seasonal, preservative-free Prosper Grant DPM Work Phone: [facility] 06-22-2021 influenza virus vacc ine, unspecified formulation Prosper Grant DPM Work Phone: [facility] 06-16-2020 Influenza, High-dose Seasonal, Quadrivalent, Preservative Free Prosper Grant DPM Work Phone: [facility] 05-28-2019 influenza, high dose seasonal, preservative-free II Hugo Ramos Work Phone: [facility] 05-28-2019 Influenza, High-dose Seasonal, Quadrivalent, Preservative Free Prosper Grant DPM Work Phone: [facility] 03-30-2019 tetanus toxoid, redu itz diphtheria toxoid, and acellular pertussis vaccine, adsorbed II Hugo Ramos Work Phone: [facility] 05-24-2018 Influenza, High-dose Seasonal, Quadrivalent, Preservative Free Prosper Grant DPM Work Phone: [facility] 05-05-2017 Influenza, High-dose Seasonal, Quadrivalent, Preservative Free Prosper Grant DPM Work Phone: [facility] 04-29-2016 pneumococcal conjuga te vaccine, 13 valent Prosper Rudy DPM Work Phone: [facility] 04-22-2016 influenza, injectabl e, quadrivalent, preservative free Prosper Brown DPM Work Phone: [facility] 04-02-2015 influenza, seasonal, injectable, preservative free Prosper Brown DPM Work Phone: [facility] 04-02-2015 zoster vaccine, live Zoila anand Rudy DPM Work Phone: [facility] 05-01-2014 influenza, seasonal, injectable Prosper Brown DPM Work Phone: [facility] 03-29-2014 pneumococcal polysaccharide vaccine, 23 valent Prosper Brown DPM Work Phone: [facility] 04-02-2013 seasonal influenza, intradermal, preservative free Prosper Grant DPM Work Phone: [facility] 07-21-2000 TD(adult) unspecifie d formulation Prosper Brown DPM Work Phone: [facility] Payers Date Payer Category Payer Self-pay [id number] 2021 Private Health Insurance [employer] [id number] 2012 Medicare MEDICARE [id number] 1959 Medicare [id number] 1959 Unknown [id number] 1947 Unknown [id number] 2.16840.1.675065.3.579.2. 593 1947 Unknown [id number] 2.16840.1.438962.3.579.2. 727 1947 Unknown [id number] 2.16840.1.038922.3.579.2. 727 1947 Unknown [id number] 2.840.1.007240.3.579.2. 727 1947 Unknown [id number] 2.16840.1.574702.3.579.2. 727 1947 Unknown [id number] 2.16.840.1.615769.3.579.2. 727 1947 Unknown [id number] 2.16840.1.312646.3.579.2. 727 1947 Unknown [id number] 2.840.1.722777.3.579.2. 727 1947 Unknown [id number] 2.16.840.1.473864.3.579.2. 727 1947 Unknown [id number] 2.16.840.1.438749.3.579.2. 1259 1947 Unknown [id number] 2.16.840.1.892699.3.579.2. 1259 1947 Unknown [id number] 2.16840.1.969000.3.579.2. 1259 1947 Unknown [id number] 2.16.840.1.837567.3.579.2. 1259 1947 Unknown [id number] 2.16.840.1.854740.3.579.2. 1258 1947 Unknown [id number] 2.16.840.1.489149.3.579.2. 1258 1947 Unknown [id number] 2.16.840.1.931915.3.579.2. 1258 1947 Unknown [id number] 2.16.840.1.712875.3.579.2. 1258 1947 Unknown [id number] 2.16.840.1.607401.3.579.2. 1258 1947 Unknown [id number] 2.16.840.1.549841.3.579.2. 1258 1947 Unknown [id number] 2.16.840.1.446510.3.579.2. 1258 1947 Unknown [id number] 2.16.840.1.912265.3.579.2. 1258 1947 Unknown [id number] 2.16.840.1.531418.3.579.2. 1258 1947 Unknown [id number] 2.16.840.1.288180.3.579.2. 1258 1947 Unknown [id number] 2.16.840.1.954471.3.579.2. 1258 1947 Unknown [id number] 2.16.840.1.846993.3.579.2. 1258 1947 Unknown [id number] 2.16.840.1.412630.3.579.2. 1258 1947 Unknown [id number] 2.16.840.1.289437.3.579.2. 1258 1947 Unknown [id number] 2.16.840.1.365710.3.579.2. 1259 1947 Unknown [id number] 2.16.840.1.210622.3.579.2. 9 1947 Unknown [id number] 2.16.840.1.287831.3.579.2. 9 1947 Unknown [id number] 2.16.840.1.597190.3.579.2. 1258 1947 Unknown [id number] 2.16.840.1.981992.3.579.2. 1258 1947 Unknown [id number] 2.16.840.1.377770.3.579.2. 1258 1947 Unknown [id number] 2.16.840.1.067402.3.579.2. 1258 Unknown [id number] 2.16.840.1.455830.3.579.2. 531 Social History Date Type Detail Facility Start: 06-08-2019 End: 12-22-2022 Tobacco smoking status Never smoked tobacco (finding) [facility] Start: 02-22-2023 End: 03-09-2023 Sex Assigned At Male [facility] Start: 08-14-2022 Tobacco smoking stat us MEIS Ex-smoker (finding) [facility] Start: 1945 Sex Assigned At Male [facility] Tobacco smoking status Never [facility] Start: 12-22-2022 Tobacco use and exposure Smokeless [...] got money to buy more. Never true [facility] Start: 1945 Sex assigned at Not on file [facility] Medical Equipment Procedure Code Equipment Code Equipment Origin al Text Equipment Identifier Dates [id number] Start: 11-18-2022 Functional Status Date Assessment Result Facility 02-23-2024 Functional Status N/A [facility] Clinical Notes 02-23-2024 to 06-04-2024 Hugo [...] Laterality Date BACK SURGERY CARPAL TUNNEL RELEASE 2011 CATARACT EXTRACTION Left [address] ANGIOGRAM NECK 03/30/2019 CT ANGIOGRAM NECK 03/30/2019 CT ANGIOGRAM NECK 03/30/2019 CT ANGIOGRAM NECK 03/30/2019 HM DIABETES EYE EXAM 2013 IR CHEST DRAIN PLACEMENT 04/04/2019 IR CHEST [...] RTC. Benign essential hypertension (CMS/HCC) Type 2 UT (myocardial infarction) (CMS/HCC) - STRESS NUCLEAR MEDICINE [...] for Test/Lab Review. documented in this encounter [facility] 03-15-2024 Note Urology Office/Clini c Note Chief [...] Skin: No rashes or suspicious lesions Assessment/Plan [employer] referred by KORIN Srinivasan for urinary incontinence. [...] E&M of New Patient High 60-74 Min 72637 Urnls Dip Stick Auto w/o Microscopy POC 56138 Urology Procedure Order 2. Urinary retention (R33.9: Retention of urine, unspecified) 02/03/24 bladder US - post void volume 155ml, no obvious masses or wall thickening -See #1 Ordered: E&M of New Patient High 60-74 Min 67395 Urology Procedure Order 3. Loss of balance [...] E&M of New Patient High 60-74 Min 34586 4. Screening PSA (prostate specific antigen) (Z12.5: Encounter for screening for malignant neoplasm of prostate) PSAs: 2019 - 1.34 2020 - 1.29 10/21/21 - 1.84 11/17/22 - 1.42 12/05/23 - 1.40 PCP (more content not included)... [facility] Comment on above: Result Comment: Elec tronically Signed By: Dolly Barros\.br\Date and Time Signed: 03/15/24 16:22 EDT 02-23-2024 [...] urethra. Follow these instructions at home: Take cecg-ils-sgjfsfs and prescription medicines only as told by [...] provider. Document Revised: 02/03/2022 Document Reviewed: 02/03/2022 [employer] Direct Patient Education 2022 [employer]. Follow Up Care 02/10/2024 09:08:33 With:SHAHANA TAVARES, Robert King, URL Address: [address] [place] [address] [place] [address]- When: Unknown Comments:our home care scheduler will be calling to schedule cystoscopy [facility] 02-23-2024 Note Patient Education Urology Benign Prostatic [...] Follow these instructions at home: ? Take bhpb-jfi-adikihw and prescription medicines only as told by [...] develop side effec (more content not included)... [facility] Evaluation + Plan note No data available for this section [facility] Evaluation + Plan note Future Appointments Appointment Date:06/18/2024 10:00:00 AM Scheduled Provider: Location:[facility] Appointment Type:URO Nurse Visit Appointment Date:07/06/2024 09:30:00 AM Scheduled Provider:Robert CONTRERAS MD Location:[facility] Appointment Type:URO Office Visit Diagnostic Tests PendingUrine Culture 05/24/24 [facility] Evaluation + Plan note Future Appointments Appointment Date:06/18/2024 10:00:00 AM Scheduled Provider: Location:[facility] Appointment Type:URO Nurse Visit Appointment Date:07/06/2024 09:30:00 AM Scheduled Provider:Robert CONTRERAS MD Location:[facility] Appointment Type:URO Office Visit [facility] Evaluation note No assessment inform ation available [facility] Work Phone: Evaluation note Diagnosis Benign localized prostatic hyperplasia with lower urinary tract symptoms (LUTS)- Primary Benign essential hypertension (CMS/HCC) Essential hypertension, benign Type 2 UT (myocardial infarction) (CMS/HCC) Chronic diastolic heart failure (CMS/HCC) Chronic diastolic heart failure Degeneration of intervertebral disc of lumbar region, unspecified whether pain present 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, lumbosacral region [facility] No data available for this section [facility] data available for this section [facility] Summary Purpose Family History No Family [...] section and content) DATE CREATED AUTHOR 08/06/2019 [facility] DATE CREATED AUTHOR AUTHOR'S ORGANIZ ATION 10/22/2021 [facility] dical Specialist DATE CREATED AUTHOR AUTHOR'S ORGANIZ ATION 05/06/2022 [facility] DATE CREATED AUTHOR AUTHOR'S ORGANIZ ATION 05/25/2024 [facility] DATE CREATED AUTHOR AUTHOR'S ORGANIZ ATION 05/27/2024 [facility] DATE CREATED AUTHOR AUTHOR'S ORGANIZ ATION 05/29/2024 [facility] ical Center DATE CREATED AUTHOR AUTHOR'S ORGANIZ ATION 06/03/2024 [facility] DATE CREATED AUTHOR AUTHOR'S ORGANIZ ATION 06/12/2024 [facility] dical Specialists EPIC Patient Care team informatio n (unrecognized section and content) Team Status: Inactive Member Role Status Dates Hugo Ramos II MD Primary Care Provider Active Manjeet Ng MD Emergency Provider Active Team Status: Active Member Role Status Dates Hugo Ramos II MD Primary Care Provider Active Manufacturing Group Leader Relationship Specialty Start Date End Date Hugo Ramos MD [address] [facility] [address] [place] [address] PCP - ACO Reach 12/23/22 Hugo Ramos MD [address] [facility] [address] [place] [address] PCP - General Internal Medicine 01/04/23 Manufacturing Group Leader Relationship Specialty Start Date End Date Hugo Ramos MD [address] [facility] [address] [place] [address] PCP - ACO Reach 12/23/22 Hugo Ramos MD [address] [facility] [address] [place] [address] PCP - General Internal Medicine 01/04/23 Manufacturing Group Leader Relationship Specialty Start Date End Date Hugo Ramos MD [address] [facility] [address] [place] [address] PCP - ACO Reach 12/23/22 Hugo Ramos MD [address] [facility] [address] [place] [address] PCP - General Internal Medicine 01/04/23 Goals [...] BE BASED ON THE PRIMARY CLINICAL RECORDS. [employer] provides no warranty or guarantee of the accuracy or completeness of information in this document.
[2024-06-14 11:23] LABS: Glucometer 194 mg/dL (74-106)
[2024-06-14] MEDS: LACTATED RINGER'S SOLUTION 1,000 ML 50 ML IV ×2 (11:37→13:34)
[2024-06-14] MEDS: LEVOFLOXACIN IN DEXTROSE 5 % 500 MG/100 ML PREMIX 100 MG IV (12:22)
--- NOTE | 2024-06-14 14:06 | PM.URSON ---
Urology Surgery Operative Note Operative Note Procedure Date: 06/14/24 Time Out Performed: yes Pre-op Diagnosis: BPH with LUTS refractory to medications; urinary retention Post-op Diagnosis: same as pre-op Procedures performed: 1. Cystoscopy. 2. Transurethral resection of the prostate. Anesthesia: ANDREAA Primary Surgeon: Robert Contreras Complications: None Estimated blood loss (mL): 20 Findings: Purulence pockets throughout the lateral lobes Specimens: Prostate chips Drains: 22 Slovak three-way coud? Segovia catheter to traction and CBI Indications for Procedures: This gentleman has a long history of BPH with LUTS for which he has been taking oral medications. He is refractory to these medications and in fact he went into urinary retention. He is obstructed endoscopically in a trilobar fashion and he is obstructed urodynamically. He is strongly desirous for TURP. He has signed an informed consent after risks were explained. Some of these include bleeding, infection, anesthesia, retrograde ejaculation, urinary incontinence both temporary and permanent, erectile dysfunction and possible need for further operations just to name a few. Detailed description of Procedure: The patient was brought to the operating room and placed on the operating room table in the supine position. SCDs were placed on the lower extremities and turned on and functioning during the entire case. Timeout was done by all parties in the room. We all agreed upon the patient's identification and the planned procedures for this patient. Genn. anesthesia was then administered. The patient was then repositioned into the modified dorsal lithotomy position. All pressure points were satisfactorily padded. Genitalia were sterilely prepped and draped in usual fashion. I started by passing a 26 Slovak Olympus resectoscope with a standard bipolar loop electrode per urethra and into the bladder. The ureteral orifices were marked with the loop electrode. The large median lobe was then resected down to the bladder neck level. I then resected posteriorly from the bladder neck to the Veru level. The left lateral lobe was then resected similarly and to the capsule. There were purulence pockets that were unroofed. The right lateral lobe and the anterior tissue were then resected similarly. Again, there were purulence pockets unroofed. The apex was then opened up. The resection bed was coagulated. The Ilich evacuator was used to get all the prostate chips out of the bladder. These were sent for permanent sections. With the scope at the apex the prostatic urethra and bladder neck were now wide open. There was no bleeding. The scope was then removed. A 22 Slovak three-way coud? was placed in the bladder. It was manually irrigated to verify correct placement. 30 cc of fluid was placed in the balloon. It was taped to traction and CBI was started. It irrigated clear to pink. The anesthetic was then reversed. He was then transferred to a [place] bed and wheeled to PACU in stable condition. Urinary Catheter Management Urinary Catheter Management Urethral: Cath placed during this visit: no
[2024-06-14] MEDS: SOLIFENACIN SUCCINATE 10 MG TABLET PO (14:24)
[2024-06-14] MEDS: SODIUM CHLORIDE IRRIG SOLUTION 3,000 ML 3000 ML IRR ×9 (14:35→23:21)
[2024-06-14] MEDS: 0.9 % SODIUM CHLORIDE 1,000 ML 80 ML IV (14:52)
[2024-06-14 20:49] LABS: Glucometer 366 mg/dL (74-106)
[2024-06-14] MEDS: HYDRALAZINE HCL 50 MG TABLET PO (21:32)
[2024-06-14] MEDS: BUPROPION HCL 75 MG TABLET 150 MG PO (21:32)
[2024-06-14] MEDS: METOPROLOL TARTRATE 50 MG TABLET PO (21:32)
[2024-06-14] MEDS: INSULIN NPH 70-30 100UNIT/ML VIAL (10ML) 50 UNIT SUBQ (21:33)
[2024-06-14] MEDS: ATORVASTATIN CALCIUM 40 MG TABLET 80 MG PO (21:33)
[2024-06-15 03:00] VITALS: BP 123/70; PULSE 59; TEMP 36.6; O2SAT 90
[2024-06-15] MEDS: 0.9 % SODIUM CHLORIDE 1,000 ML 80 ML IV (03:32)
[2024-06-15] MEDS: LEVOTHYROXINE SODIUM 175 MCG TABLET PO (05:49)
[2024-06-15 07:16] VITALS: BP 160/71; PULSE 58; TEMP 36.7; O2SAT 95
[2024-06-15] MEDS: AMLODIPINE BESYLATE 5 MG TABLET PO (08:34)
[2024-06-15] MEDS: CANAGLIFLOZIN 100 MG TABLET 300 MG PO (08:34)
[2024-06-15] MEDS: METOPROLOL TARTRATE 50 MG TABLET PO (08:35)
[2024-06-15] MEDS: SOLIFENACIN SUCCINATE 10 MG TABLET PO (08:35)
[2024-06-15] MEDS: INSULIN NPH 70-30 100UNIT/ML VIAL (10ML) 40 UNIT SUBQ (08:35)
[2024-06-15] MEDS: BUPROPION HCL 75 MG TABLET 150 MG PO (08:35)
[2024-06-15] MEDS: DULOXETINE HCL 60 MG CAPSULE.DR PO (08:35)
[2024-06-15] MEDS: HYDRALAZINE HCL 50 MG TABLET PO (08:41)
--- NOTE | 2024-06-15 10:43 | PC.NURSE ---
hands on teaching with leg bag and night time bag given to pt and with return demonstration. Handouts also given and explained at this time
== END 2024-06-15 10:45 | disposition home or self-care (01) ==
LOC: SURGOUT 13:56 → MS 14:35
PROVIDERS: PCP Internal Medicine; Visit Provider Urology
PROC: (CPT 52601; principal; 2024-06-14 12:00)
DX: N40.1 Benign prostatic hyperplasia with lower urinary tract symptoms (principal); E03.9 Hypothyroidism, unspecified; E78.5 Hyperlipidemia, unspecified; I10 Essential (primary) hypertension; R33.9 Retention of urine, unspecified; Z79.4 Long term (current) use of insulin; E11.40 Type 2 diabetes mellitus with diabetic neuropathy, unspecified
CPT/HCPCS: 52601; 36415; 82948; 88305; J0131; J1100; J1171; J2250; J2405; J2704; J3010